=== PATIENT | male | born 1980 | race Caucasian/White ===

== ENCOUNTER 2016-12-24 10:23 | Inpatient (IN) | payer OTHER ==
--- NOTE | 2016-12-24 10:36 | ED PDOC ---
Arrival/HPI - General Time Seen by Provider: 12/24/16 10:24 Historian: EMS EM Caveat: Altered Mental Status - History of Present Illness Narrative History of Present Illness (Text): 12/24/16 10:15 Jorge Alberto Cast is a 36 year old male, whose past medical history includes asthma and drug use, is brought into the emergency department via EMS after being found unresponsive in his house by a family member prior to arrival. Per EMS, family member states he is a heroin user and when knocking on the door patient would not answer and was unresponsive. EMS reports he had pinpoint pupils and shallow breathing so they administered 2mg intranasal and 2mg IV Narcan with no response. The intubated patient with 150 mg of Ketamine and 150 mg of Rocuronium. They treated his respiratory distress with 125mg of Solumedrol , 2gm of Magnesiuam and 0.3 epi IM. PMD: Dr. Wilkes 12/24/16 11:16 Girlfriend arrived in the ED and reported that she last text messaged with him at 4:30 am. She then went to his apartment prior to arrival and he wouldn't answer the door. She suspected he may have intranasally used heroine because said a couple of days ago he was getting but she's unsure if he used it last night. She also states he has very poor asthma so she's not sure if he an asthma attack. Time/Duration: Prior to Arrival Symptom Onset: Sudden Symptom Course: Unchanged Context: Home Past Medical History - Provider Review Nursing Documentation Reviewed: Yes - Tetanus Immunization Tetanus Immunization: Up to Date - Pulmonary Hx Asthma: Yes - Gastrointestinal Hx Gastroesophageal Reflux: Yes - Psychiatric Hx Substance Use: No - Suicidal Assessment Feels Threatened In Home Enviroment: No Family/Social History - Physician Review Nursing Documentation Reviewed: Yes Family/Social History: Unknown Family HX Smoking Status: Never Smoked Hx Alcohol Use: No Hx Substance Use: No Allergies/Home Meds Allergies/Adverse Reactions: Allergies cat dander Allergy (Verified 12/24/16 10:25) RASH Review of Systems - Review of Systems Systems not reviewed;Unavailable: Altered Mental Status Respiratory: Other (shallow breathing ) Physical Exam - Physical Exam Physical Exam Limitations: Altered Mental Status Vital Signs Reviewed: Yes Vital Signs Temp Pulse Resp BP Pulse Ox 12/24/16 11:15 94 H 185/141 H 12/24/16 10:24 96.6 F L 118 H 20 186/127 H 100 Temperature: Hypothermic Blood Pressure: Hypertensive Pulse: Tachycardic Appearance: Positive for: Ill-Appearing Pain Distress: None Mental Status: Positive for: Comatose - Systems Exam Head: Present: Atraumatic, Normocephalic Pupils: Present: PERRL (3mL reactive) Conjunctiva: Present: Normal Mouth: Present: Other (7.5 ET tube in mouth. no bleeding ) Nose (External): No: Atraumatic Respiratory/Chest: Present: Wheezes (bilateral wheezing with inhilation and currently with bag valve mask). No: Respiratory Distress, Accessory Muscle Use Abdomen: Present: Normal Bowel Sounds. No: Tenderness, Distention, Peritoneal Signs Lower Extremity: Present: Normal Inspection. No: Edema Neurological: Present: GCS=15, CN II-XII Intact, Speech Normal Skin: Present: Warm, Dry, Normal Color. No: Rashes Psychiatric: Present: Other (Not responsive to stimuli and currently sedated ) Medical Decision Making ED Course and Treatment: 12/24/16 Impression: 36 year old male with no trauma to head, pupils are 3mL reactive. Patient currently has 7.5 ET tube in mouth with no bleeding. On exam patient has bilateral wheezing with inhalation and currently with bag valve mask. Abdomen is non-tender and there is no lower extremity edema. Not responsive to stimuli and currently sedated Differential Diagnosis included but are not limited to: Overdose vs. COPD vs. Asthma exacerbation Plan: -- EKG -- Chest X-ray -- CT Cervical spine -- CT Head without contrast -- Labs -- Urinalysis -- Reassess and disposition Progress Notes: EKG: Ordered, reviewed, and independently interpreted the EKG. Rate : 103 BPM Rhythm : tachycardia Interpretation : No ST-segment elevations or depressions, no T-wave inversions, normal intervals. 12/24/16 11:12 CBC showed WBC of 21. Patient is hypothermic and tachycardic. Treated with Zosyn and Vanco for Severe Sepsis. Lactic Acid pending. Magnesium is elevated. Blood is being redrawn since the Magnesium IV drip was hanging via that IV line that had that blood drawn from. Bicarb 1 amp ordered to treat acidosis. Propofol drip started because patients slowly waking up and bucking on the vent. Case was discussed with Dr. Lyle, ICU attending who will accept the case. Dr. Castro, the hospitalist, accepted to her service. 12/24/16 11:[address] Sotero Peres who recommends MRI now or repeat CT in later today. 12/24/16 12:00 CT Cervical spine: Creator : Adelfo Munguia MD FINDINGS: VERTEBRAE: No fracture. Normal alignment. No destructive bony lesion. DISCS/SPINAL CANAL/NEURAL FORAMINA: No significant central canal or neural foraminal stenosis. Discs heights are grossly preserved. PARASPINAL SOFT TISSUES: The patient is status post intubation and NG tube insertion therefore cannot assess the prevertebral soft tissue in this study. OTHER FINDINGS: Heterogeneous opacity at the right upper lung may represent pneumonia or aspiration. IMPRESSION: No CT evidence of acute fracture or subluxation at the cervical spine. 12/24/2016 12:05 Chest X-ray: Creator : Adelfo Munguia MD FINDINGS: LUNGS: Heterogeneous opacities are noted in both lungs more prominent at the perihilar region. The left lung appears smaller than the right likely due to partial atelectasis. PLEURA: No significant pleural effusion identified, no pneumothorax apparent. CARDIOVASCULAR: Normal. Mild mediastinal structure shift to the left is noted. OSSEOUS STRUCTURES: No significant abnormalities. VISUALIZED UPPER ABDOMEN: The NG tube is seen at slightly low high position with the side hole likely at the distal esophagus P OTHER FINDINGS: None. IMPRESSION: Heterogeneous opacities in the lungs more prominent at the perihilar region. Suspicious for partial atelectasis of the left lung associated with mediastinal shift to the left.High position of the NG tube with the side hole likely at the distal esophagus. The stomach is distended. 12/24/16 12:41 Case was discussed with Dr. Roque, Neurosurgery, who reviewed the CT Head imagining and does not see an acute bleed. We will continue with the plan to repeat the image or an MRI. Dr. Schwartz is aware of the plan and will follow up. - Critical Care Critical Care Minutes: 60 minutes - Lab Interpretations Lab Results: 12/24/16 10:30 12/24/16 10:30 Lab Results 12/24/16 11:15: pO2 33, VBG pH 6.95 L*, VBG pCO2 133.0 H*, VBG HCO3 29.2 H, VBG Total CO2 33.3 H, VBG O2 Sat (Calc) 59.9, VBG Base Excess -6.3 L, VBG Potassium 5.0, Glucose 82, Lactate 1.4, FiO2 21.0, Sodium 139.0, Chloride 104.0, Venous Blood Potassium 5.0 12/24/16 10:45: Salicylates < 1 L, Acetaminophen < 10.0 L 12/24/16 10:45: Urine Opiates Screen Negative, Urine Methadone Screen Negative, Ur Barbiturates Screen Negative, Ur Phencyclidine Scrn Negative, Ur Amphetamines Screen Negative, U Benzodiazepines Scrn Negative, U Oth Cocaine Metabols Negative, U Cannabinoids Screen Positive H 12/24/16 10:45: Urine Color Yellow, Urine Appearance Clear, Urine pH 6.0, Ur Specific [place] >= 1.030, Urine Protein 30 H, Urine Glucose (UA) 250 H, Urine Ketones Negative, Urine Blood Large H, Urine Nitrate Negative, Urine Bilirubin Negative, Urine Urobilinogen 0.2, Ur Leukocyte Esterase Negative, Urine RBC 10 - 15, Urine WBC 1 - 3, Ur Epithelial Cells None, Amorphous Sediment Few, Urine Bacteria Mod, Hyaline Casts 0 - 2, Fine Granular Casts 0 - 2, Coarse Granular Casts Trace H 12/24/16 10:30: Alcohol, Quantitative < 10 12/24/16 10:30: Sodium 143, Potassium 5.0, Chloride 101, Carbon Dioxide 29, Anion Gap 18, BUN 22 H, Creatinine 1.9 H, Est GFR ( Amer) 49, Est GFR ( Non-Af Amer) 40, Random Glucose 133 H, Calcium 8.6, Phosphorus 9.8 H, Magnesium 7.0 H*, Total Bilirubin 0.4, AST 187 H, ALT 145 H, Alkaline Phosphatase 63, Lactate Dehydrogenase 1222 H, Total Creatine Kinase 426 H, CK-MB (CK-2) 4.3 H, CK-MB (CK-2) % Cancelled, Troponin I 0.12, NT-Pro-B Natriuret Pep 36.4, Total Protein 7.3, Albumin 4.5, Globulin 2.8, Albumin/Globulin Ratio 1.6 12/24/16 10:30: PT 11.7, INR 1.06, APTT 32.7 12/24/16 10:30: WBC 21.2 H, RBC 4.89, Hgb 15.9, Hct 48.0, MCV 98.2, MCH 32.5, MCHC 33.1, RDW 12.8, Plt Count 265, MPV 10.7, Gran % 86.9 H, Lymph % (Auto) 8.1 L, Williams % (Auto) 4.4, Eos % (Auto) 0.4 L, Baso % (Auto) 0.2, Gran # 18.44 H, Lymph # 1.7, Williams # 0.9 H, Eos # 0.1, Baso # 0.04 I have reviewed the lab results: Yes - RAD Interpretation Radiology Orders: 12/24/16 10:29 CHEST PORTABLE [RAD] Stat 12/24/16 10:30 HEAD W/O CONTRAST [CT] Stat 12/24/16 10:40 CERVICAL SPINE W/O CONTRAST [CT] Stat Waiter/Waitress Cabin Class: Radiologist - EKG Interpretation Interpreted by ED Physician: Yes Type: 12 lead EKG - Medication Orders Current Medication Orders: Propofol (Diprivan) 1,000 mg in 100 mls @ 2.762 mls/hr IV .Q24H PRN; Protocol; 5 MCG/KG/MIN PRN Reason: TITRATE PER MD ORDER Last Admin: 12/24/16 12:07 Dose: 5 mcg/kg/min, 2.762 mls/hr eMAR Start Stop Document 12/24/16 12:07 MR (Rec: 12/24/16 12:07 MR [id number]) Intravenous Solution Start Date 12/24/16 Start Time 12:07 Titration Intervention Document 12/24/16 12:07 MR (Rec: 12/24/16 12:07 MR [id number]) Titration Intake Waste Amount 0 Container Volume 100 Titration Dosing Titration Dose 5 IV Rate 2.762 Intake/Decrease Started Discontinued Medications Albuterol/Ipratropium (Duoneb 3 Mg/0.5 Mg (3 Ml) Ud) 3 ml IH Q15M SILVERIO Stop: 12/24/16 11:01 Last Admin: 12/24/16 12:05 Dose: 3 ml Hydralazine HCl (Apresoline) 10 mg IVP STAT STA Stop: 12/24/16 11:04 Last Admin: 12/24/16 11:15 Dose: 10 mg IVP Administration Document 12/24/16 11:15 MR (Rec: 12/24/16 11:16 MR [id number]) Charges for Administration # of IVP Administrations 1 MAR Pulse and Blood Pressure Document 12/24/16 11:15 MR (Rec: 12/24/16 11:16 MR [id number]) Pulse Pulse Rate (60-90) 94 Blood Pressure Blood Pressure (100/60-150/90) 185/141 Vancomycin HCl (Vancomycin 1gm) 1 gm in 250 mls @ 167 mls/hr IVPB STAT STA PRN Reason: Protocol Stop: 12/24/16 12:21 Last Admin: 12/24/16 12:16 Dose: 167 mls/hr eMAR Start Stop Document 12/24/16 12:16 MR (Rec: 12/24/16 12:16 MR [id number]) Intravenous Solution Start Date 12/24/16 Start Time 12:16 End Date 12/24/16 End time 13:46 Total Infusion Time 90 Piperacillin Sod/Tazobactam Sod (Zosyn 4.5 Gm In Ns 100ml) 4.5 gm in 100 mls @ 200 mls/hr IVPB STAT STA PRN Reason: Protocol Stop: 12/24/16 11:21 Last Admin: 12/24/16 11:18 Dose: 200 mls/hr eMAR Start Stop Document 12/24/16 11:18 MR (Rec: 12/24/16 11:18 MR [id number]) Intravenous Solution Start Date 12/24/16 Start Time 11:18 End Date 12/24/16 End time 11:48 Total Infusion Time 30 Sodium Bicarbonate (Sodium Bicarbonate 8.4% (50 Meq) Syringe) 50 meq IVP ONCE ONE Stop: 12/24/16 11:41 Last Admin: 12/24/16 12:03 Dose: 50 meq IVP Administration Document 12/24/16 12:03 MR (Rec: 12/24/16 12:03 MR [id number]) Charges for Administration # of IVP Administrations 1 - Scribe Statement The provider has reviewed the documentation as recorded by the Rocioibmagy Guido Provider Scribe Attestation: All medical record entries made by the Scribe were at my direction and personally dictated by me. I have reviewed the chart and agree that the record accurately reflects my personal performance of the history, physical exam, medical decision making, and the department course for this patient. I have also personally directed, reviewed, and agree with the discharge instructions and disposition. Disposition/Present on Arrival - Present on Arrival Any Indicators Present on Arrival: No History of DVT/PE: No History of Uncontrolled Diabetes: No Urinary Catheter: No History Surgical Site Infection Following: None - Disposition Have Diagnosis and Disposition been Completed?: Yes Diagnosis: Exacerbation of asthma, Overdose of heroin, Sepsis Disposition: HOSPITALIZED Disposition Time: 11:22 Patient Plan: Admission, ICU Patient Problems: Current Active Problems Problem Status Onset Exacerbation of asthma Acute Overdose of heroin Acute Sepsis Acute Condition: CRITICAL
[2016-12-24 10:43] LABS: BASO # 0.04 K/mm3 (0.0-2.0); BASO % 0.2 % (0.0-3.0); EOS # 0.1 (0.0-0.7); EOS % 0.4 % (1.5-5.0); GRAN # 18.44 (1.4-6.5); GRAN % 86.9 % (50.0-68.0); LYMPH # 1.7 (1.2-3.4); LYMPH % 8.1 % (22.0-35.0); MEAN CELL VOLUME 98.2 fl (80.0-105.0); MEAN CORPUSCULAR HEMOGLOBIN 32.5 pg (25.0-35.0); MEAN CORPUSCULAR HGB CONC 33.1 g/dl (31.0-37.0); MEAN PLATELET VOLUME 10.7 fl (7.0-11.0); MONO # 0.9 (0.1-0.6); MONO % 4.4 % (1.0-6.0); RED CELL DISTRIBUTION WIDTH 12.8 % (11.5-14.5); WHITE BLOOD COUNT 21.2 10^3/ul (4.5-11.0)
[2016-12-24] MEDS ORDERED: Vancomycin 1gm in NS 250ml 1 GM/250 ML BAG IVPB STA (10:52)
[2016-12-24] MEDS ORDERED: Piperacill/Tazo 4.5gm in NS 4.5 GM/100 ML BAG IVPB STA (10:52)
[2016-12-24 10:55] LABS: ALB/GLOB RATIO 1.6 (1.1-1.8); BILIRUBIN,TOTAL 0.4 mg/dL (0.2-1.3); CALCIUM 8.6 mg/dL (8.4-10.5); PHOSPHOROUS 9.8 mg/dL (2.5-4.5); TOTAL PROTEIN 7.3 g/dL (5.8-8.3)
[2016-12-24 10:56] LABS: INR 1.06 (0.93-1.08); PARTIAL THROMBOPLASTIN TIME 32.7 Seconds (25.1-36.5)
[2016-12-24 10:56] LABS: URINE BILIRUBIN NEGATIVE (NEGATIVE); URINE BLOOD LARGE (NEGATIVE); URINE GLUCOSE (UA) 250 mg/dL (NEGATIVE); URINE KETONE NEGATIVE (NEGATIVE); URINE LEUKOCYTE ESTERASE NEGATIVE Leu/uL (NEGATIVE); URINE PROTEIN 30 mg/dL (<30 mg/dL); URINE UROBILINOGEN 0.2 E.U./dL (<1 E.U./dL)
[2016-12-24 10:59] LABS: URINE APPEARANCE CLEAR (CLEAR); URINE COLOR YELLOW (YELLOW)
[2016-12-24 11:03] LABS: URINE BACTERIA MOD (NEG)
[2016-12-24] MEDS: Albuterol-Ipratrop 3 mg / 0.5 (3 ml) UD IH SCH ×5 (11:04→20:12)
[2016-12-24 11:05] LABS: URINE AMORPHOUS SEDIMENT FEW
[2016-12-24 11:26] LABS: VENOUS BLOOD GAS BASE EXCESS -6.3 mmol/L (0.0-2.0); VENOUS BLOOD PH 6.95 (7.32-7.43)
[2016-12-24 11:39] LABS: TROPONIN I 0.12 ng/mL
[2016-12-24] MEDS ORDERED: Sodium Bicarbonate (8.4%) 50 Meq Syringe IVP ONE (11:40)
[2016-12-24] MEDS ORDERED: Propofol 10 mg/ml 1,000 MG/100 ML VIAL IV PRN (11:40)
--- NOTE | 2016-12-24 11:41 | CT ---
PROCEDURE: CT HEAD WITHOUT CONTRAST. HISTORY: altered mental status COMPARISON: None available. TECHNIQUE: Axial computed tomography images were obtained through the head/brain without intravenous contrast. Radiation dose: Total exam DLP = 814.48 mGy-cm. This CT exam was performed using one or more of the following dose reduction techniques: Automated exposure control, adjustment of the mA and/or kV according to patient size, and/or use of iterative reconstruction technique. FINDINGS: HEMORRHAGE: This questionable small 4 millimeter focal high attenuation at the left frontal lobe seen on image 53 series 2 BRAIN: No mass effect or edema. No atrophy or chronic microvascular ischemic changes. VENTRICLES: Unremarkable. No hydrocephalus. CALVARIUM: Unremarkable. PARANASAL SINUSES: Unremarkable as visualized. No significant inflammatory changes. MASTOID AIR CELLS: Unremarkable as visualized. No inflammatory changes. OTHER FINDINGS: None. IMPRESSION: Questionable 4 millimeter focus of increased attenuation at the left frontal lobe peripherally. The possibility of small hemorrhage cannot be excluded. Close follow-up reassessment by CT after 06-12 hour is suggested.
[2016-12-24 11:44] VITALS: BMI 29.1
--- NOTE | 2016-12-24 11:48 | CT ---
PROCEDURE: CT Cervical Spine without contrast HISTORY: Possible trauma, unresponsive COMPARISON: None available. TECHNIQUE: Axial computed tomography images were obtained of the cervical spine without the use of intravenous contrast. Coronal and sagittal reformatted images were created and reviewed. Radiation dose: Total exam DLP = 572.89 mGy-cm. This CT exam was performed using one or more of the following dose reduction techniques: Automated exposure control, adjustment of the mA and/or kV according to patient size, and/or use of iterative reconstruction technique. FINDINGS: VERTEBRAE: No fracture. Normal alignment. No destructive bony lesion. DISCS/SPINAL CANAL/NEURAL FORAMINA: No significant central canal or neural foraminal stenosis. Discs heights are grossly preserved. PARASPINAL SOFT TISSUES: The patient is status post intubation and NG tube insertion therefore cannot assess the prevertebral soft tissue in this study. OTHER FINDINGS: Heterogeneous opacity at the right upper lung may represent pneumonia or aspiration. IMPRESSION: No CT evidence of acute fracture or subluxation at the cervical spine.
--- NOTE | 2016-12-24 11:49 | CP.PCM.HP ---
<Gala James - Last Filed: 12/24/16 13:15> History of Present Illness - History of Present Illness History of Present Illness: Please note patient came in intubated and unresponsive. History is from girlfriend of 12 years, Emelia Card, who is at bedside. Contact # [phone] 36 year old male PMHx asthma, sciatica, and drug use BIBA intubated after being found unresponsive by at home. Patient's girlfriend reports that she last spoke to patient at 4:30am [texting and a phone call] and he was lucid and was at baseline oriented x 3. Later on the morning of admission, he was no longer responding to her calls and texts and when she went to his home at 8:30am she noticed he was lying on his right side with froth and white foam around his mouth, blue lips, and she could see his chest wall was retracting. She called 911 immediately and when EMS arrived, patient was found unresponsive with pinpoint pupils and shallow breathing. He was administered 2mg intranasal and 2mg IV Narcan with no response. The intubated patient with 150 mg of Ketamine and 150 mg of Rocuronium. They treated his respiratory distress with 125mg of Solumedrol, 2gm of Magnesiuam and 0.3 epi IM. As per girlfriend, patient has been depressed recently due to them and was recently introduced to snorting heroin by his brother. His girlfriend states that he has been using for the past month but she is unsure of how much. He used to take percocet, other painkillers, and Benadryl recreationally. As per girlfriend, this past week patient had not complained of any headaches, dizziness, chest pain, SOB, cough, abdominal pain, nausea, vomiting, bowel/bladder complaints, pain/ swelling in his legs bilaterally, problems ambulating. Patient has not travelled recently and has had no sick contacts. PMD: [place] [facility] [place]x: asthma and sciatica Intubation in the past: denies PSurgeries: denies PHospitalization: denies PProcedures: denies SocHx: started snorting heroin this past month [girlfriend unsure of how much] used to take Percocet and other painkillers recreationally and Benadryl for the high; EtOH socially; started smoking tobacco this past month; smokes marijuana regularly. 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 Fam Hx: mother smokes crack and brother does heroin Meds: Albuterol, Steroids [girlfriend unsure of dose] ALL: NKDA ROS: unobtainable. Patient intubated on vent. Present on Admission - Present on Admission Any Indicators Present on Admission: No Review of Systems - Review of Systems Systems not reviewed;Unavailable: Intubated Past Patient History - Tetanus Immunizations Tetanus Immunization: Up to Date - Past Social History Smoking Status: Never Smoked - PULMONARY Hx Asthma: Yes - GASTROINTESTINAL Hx Gastroesophageal Reflux: Yes - PSYCHIATRIC Hx Substance Use: No - ANESTHESIA Hx Anesthesia: No Meds Allergies/Adverse Reactions: Allergies Allergy/AdvReac Type Severity Reaction Status Date / Time cat dander Allergy RASH Verified 12/24/16 10:25 Physical Exam - Constitutional Appears: In Acute Distress (intubated on vent) - Head Exam Head Exam: ATRAUMATIC, NORMAL INSPECTION, NORMOCEPHALIC - Eye Exam Eye Exam: Normal appearance, PERRL. absent: Conjunctival injection, Scleral icterus Pupil Exam: Miosis - ENT Exam ENT Exam: Mucous Membranes Dry Additional comments: NG tube in place draining dark brown fluid ~250cc - Neck Exam Neck exam: Negative for: Lymphadenopathy - Respiratory Exam Respiratory Exam: Rhonchi, Wheezes. absent: Accessory Muscle Use, Clear to Auscultation Bilateral Additional comments: intubated on vent (100, 5, 14, 450) - Cardiovascular Exam Cardiovascular Exam: Tachycardia, REGULAR RHYTHM, +S1, +S2 - GI/Abdominal Exam GI & Abdominal Exam: Normal Bowel Sounds, Soft. absent: Distended, Firm, Guarding, Rigid - Extremities Exam Extremities exam: Positive for: normal capillary refill, normal inspection, pedal pulses present. Negative for: pedal edema - Neurological Exam Neurological exam: Altered (Not responsive to stimuli and currently sedated) - Psychiatric Exam Additional comments: Not responsive to stimuli and currently sedated - Skin Skin Exam: Dry, Intact, Normal Color Results - Vital Signs Recent Vital Signs: Last Vital Signs Temp 96.6 F L 12/24/16 10:24 Pulse 94 H 12/24/16 11:15 Resp 20 12/24/16 10:24 BP 185/141 H 12/24/16 11:15 Pulse Ox 100 12/24/16 10:24 - Labs Result Diagrams: 12/24/16 10:30 12/24/16 11:45 Assessment & Plan - Assessment and Plan (Free Text) Assessment: 36 year old male PMHx asthma, sciatica, and drug use BIBA intubated after being found unresponsive by at home. Patient admitted to ICU. Plan: AMS - drug overdose vs status asthmaticus vs unwitnessed withdrawal seizure - Head CT: questionable 4mm focus on increased attenuation at the left frontal lobe peripherally. Possibility of a small hemorrhage cannot be excluded f/u repeat Head CT in 6-12 hours - CT cervical spine: no evidence of acute fracture of subluxation - UTox: + cannabinoids only - Neurology Dr. Peres consulted- f/u reccs - Neurosurgery Dr. Villalta consulted - f/u reccs Respiratory Failure - intubated on vent (100, 5, 14, 450) - VBG on admission pH: 6.95, pCO2: 133, HCO3: 29.2, Total CO2: 33.3 - ABG: pH: 7.18, pCO2: 91, pO2: 57, HCO3: 34, Total CO2: 36.8 repeat ABG pH: 7.18, pCO2: 64, pO2: 78, HCO3: 23.9, Total CO2: 25.9 hypercapnic respiratory acidosis - CXR: heterogeneous opacities in the lungs more prominent at the perihilar region. Suspicion for partial atelectasis of the left lung associated with mediastinal shift to the left. High position of NGT with side hole likely at distal esophagus. Stomach is distended. - Duoneb 3ml inh q4 - Solumedrol 40mg ivp q12 SIRS - meets criteria: hypothermic, tachycardic, elevated WBC - f/u blood culture, sputum culture, and urine culture - f/u procalcitonin - Zosyn and Vancomycin continued - ID Dr. Castillo consulted - f/u reccs Upper GI Bleed - NGT in place on suction - Protonix 40mg ivp q12 - NPO - GI Dr. Hernandez consulted - f/u reccs Transaminitis - AST/ALT on admission: 187/145 --> repeat 197/156 - f/u Acute Hep panel - f/u U/S abdomen Elevated troponin - Troponin on admission: 0.12 repeat troponin q6 - EKG: sinus tachycardia 103bpm - f/u Echo - Cardio Dr. Siddiqui consulted - f/u [facility] Acute Kidney Injury - BUN/Cr on admission: 06/03.9 --> repeat 07/03.8 - NS @ 100cc/hr - consider nephro consult if BUN/Cr continues to increase GI ppx: Protonix 40mg ivp q12 DVT ppx: SCDs Diet: NPO Fluids: NS @ 100cc/hr Precautions: Aspiration, Seizure Case discussed with Dr. Nichelle James PGY2 <Hieu Steward - Last Filed: 12/25/16 07:40> Results - Vital Signs Recent Vital Signs: Last Vital Signs Temp 98.3 F 12/25/16 00:00 Pulse 75 12/25/16 03:00 Resp 18 12/25/16 03:00 BP 113/60 12/25/16 03:00 Pulse Ox 100 12/25/16 03:00 - Labs Result Diagrams: 12/25/16 06:00 12/25/16 06:00 Labs: Laboratory Results - last 24 hr 12/24/16 12/24/16 12/24/16 11:45 12:00 12:15 WBC RBC Hgb Hct MCV MCH MCHC RDW Plt Count MPV Gran % Lymph % (Auto) [place] % (Auto) Eos % (Auto) Baso % (Auto) Gran # Lymph # [place] # Eos # Baso # Neutrophils % (Manual) Band Neutrophils % Lymphocytes % (Manual) Monocytes % (Manual) Platelet Evaluation Large Platelets Giant Platelets PT INR pCO2 91 H* 64 H pO2 57.0 L 78.0 L HCO3 34.0 H 23.9 ABG pH 7.18 L* 7.18 L* ABG Total CO2 36.8 H 25.9 ABG O2 Saturation 91.7 L 96.9 ABG O2 Content 17.6 19.7 ABG Base Excess 2.4 -5.8 L ABG Hemoglobin 14.3 15.1 ABG Carboxyhemoglobin 4.0 H 3.5 H POC ABG HHb (Measured) 7.9 H 3.0 ABG Methemoglobin 0.7 0.7 ABG O2 Capacity 19.2 20.3 ABG Potassium Hgb O2 Saturation 87.4 L 92.8 L Glucose Lactate Mechanical Rate FiO2 100.0 100.0 Tidal Volume PEEP Sodium 144 Potassium 4.9 Chloride 102 Carbon Dioxide 29 Anion Gap 18 BUN 23 H Creatinine 1.8 H Est GFR ( Amer) 52 Est GFR (Non-Af Amer) 43 Random Glucose 85 Calcium 8.8 Phosphorus 9.2 H Magnesium 3.0 H Total Bilirubin 0.5 AST 197 H ALT 156 H Alkaline Phosphatase 64 Troponin I Total Protein 7.6 Albumin 4.6 Globulin 3.0 Albumin/Globulin Ratio 1.5 Procalcitonin Arterial Blood Potassium Influenza Typ A,B (EIA) 12/24/16 12/24/16 12/24/16 12:54 14:00 14:40 WBC RBC Hgb Hct MCV MCH MCHC RDW Plt Count MPV Gran % Lymph % (Auto) [place] % (Auto) Eos % (Auto) Baso % (Auto) Gran # Lymph # [place] # Eos # Baso # Neutrophils % (Manual) Band Neutrophils % Lymphocytes % (Manual) Monocytes % (Manual) Platelet Evaluation Large Platelets Giant Platelets PT INR pCO2 52 H pO2 176.0 H HCO3 23.3 ABG pH 7.26 L ABG Total CO2 24.9 ABG O2 Saturation 99.7 H ABG O2 Content ABG Base Excess -4.3 L ABG Hemoglobin ABG Carboxyhemoglobin POC ABG HHb (Measured) ABG Methemoglobin ABG O2 Capacity ABG Potassium 5.5 H Hgb O2 Saturation Glucose 114 H Lactate 1.5 Mechanical Rate 14 FiO2 100.0 Tidal Volume 500 PEEP 5 Sodium 137.0 Potassium Chloride 106.0 Carbon Dioxide Anion Gap BUN Creatinine Est GFR ( Amer) Est GFR (Non-Af Amer) Random Glucose Calcium Phosphorus Magnesium Total Bilirubin AST ALT Alkaline Phosphatase Troponin I Total Protein Albumin Globulin Albumin/Globulin Ratio Procalcitonin 0.78 H Arterial Blood Potassium 5.5 H Influenza Typ A,B (EIA) Negative for flu a/b 12/24/16 12/24/16 12/25/16 18:30 18:30 01:00 WBC 17.2 H RBC 4.83 Hgb 15.4 Hct 45.7 MCV 94.6 D MCH 31.9 MCHC 33.7 RDW 12.7 Plt Count 210 MPV 11.4 H Gran % 93.2 H Lymph % (Auto) 3.9 L [place] % (Auto) 2.8 Eos % (Auto) 0.0 L Baso % (Auto) 0.1 Gran # 16.06 H Lymph # 0.7 L [place] # 0.5 Eos # 0.0 Baso # 0.01 Neutrophils % (Manual) 86 H Band Neutrophils % 5 H Lymphocytes % (Manual) 3 L Monocytes % (Manual) 6 Platelet Evaluation Normal Large Platelets Present Giant Platelets Present PT INR pCO2 pO2 HCO3 ABG pH ABG Total CO2 ABG O2 Saturation ABG O2 Content ABG Base Excess ABG Hemoglobin ABG Carboxyhemoglobin POC ABG HHb (Measured) ABG Methemoglobin ABG O2 Capacity ABG Potassium Hgb O2 Saturation Glucose Lactate Mechanical Rate FiO2 Tidal Volume PEEP Sodium Potassium Chloride Carbon Dioxide Anion Gap BUN Creatinine Est GFR ( Amer) Est GFR (Non-Af Amer) Random Glucose Calcium Phosphorus Magnesium Total Bilirubin AST ALT Alkaline Phosphatase Troponin I 0.37 H* D 0.39 H* Total Protein Albumin Globulin Albumin/Globulin Ratio Procalcitonin Arterial Blood Potassium Influenza Typ A,B (EIA) 12/25/16 12/25/16 12/25/16 06:00 06:00 06:00 WBC 13.5 H D RBC 4.56 Hgb 14.4 Hct 42.9 MCV 94.1 MCH 31.6 MCHC 33.6 RDW 12.9 Plt Count 199 MPV 11.0 Gran % 93.8 H Lymph % (Auto) 3.6 L [place] % (Auto) 2.6 Eos % (Auto) 0.0 L Baso % (Auto) 0.0 Gran # 12.70 H Lymph # 0.5 L [place] # 0.4 Eos # 0.0 Baso # 0.00 Neutrophils % (Manual) Band Neutrophils % Lymphocytes % (Manual) Monocytes % (Manual) Platelet Evaluation Large Platelets Giant Platelets PT 13.2 H INR 1.20 H pCO2 pO2 HCO3 ABG pH ABG Total CO2 ABG O2 Saturation ABG O2 Content ABG Base Excess ABG Hemoglobin ABG Carboxyhemoglobin POC ABG HHb (Measured) ABG Methemoglobin ABG O2 Capacity ABG Potassium Hgb O2 Saturation Glucose Lactate Mechanical Rate FiO2 Tidal Volume PEEP Sodium 142 Potassium 4.4 Chloride 105 Carbon Dioxide 29 Anion Gap 12 BUN 29 H Creatinine 1.1 Est GFR ( Amer) > 60 Est GFR (Non-Af Amer) > 60 Random Glucose 118 H Calcium 9.0 Phosphorus 3.3 Magnesium 2.4 H Total Bilirubin 0.5 AST 93 H D ALT 104 H Alkaline Phosphatase 42 Troponin I Total Protein 6.5 Albumin 4.0 Globulin 2.5 Albumin/Globulin Ratio 1.6 Procalcitonin Arterial Blood Potassium Influenza Typ A,B (EIA) 12/25/16 06:10 WBC RBC Hgb Hct MCV MCH MCHC RDW Plt Count MPV Gran % Lymph % (Auto) [place] % (Auto) Eos % (Auto) Baso % (Auto) Gran # Lymph # [place] # Eos # Baso # Neutrophils % (Manual) Band Neutrophils % Lymphocytes % (Manual) Monocytes % (Manual) Platelet Evaluation Large Platelets Giant Platelets PT INR pCO2 38 pO2 114.0 H HCO3 22.5 ABG pH 7.38 ABG Total CO2 23.7 ABG O2 Saturation 98.8 H ABG O2 Content ABG Base Excess -2.3 L ABG Hemoglobin ABG Carboxyhemoglobin POC ABG HHb (Measured) ABG Methemoglobin ABG O2 Capacity ABG Potassium 3.7 Hgb O2 Saturation Glucose 113 H Lactate 3.2 H Mechanical Rate FiO2 100.0 Tidal Volume PEEP Sodium 141.0 Potassium Chloride 111.0 H Carbon Dioxide Anion Gap BUN Creatinine Est GFR ( Amer) Est GFR (Non-Af Amer) Random Glucose Calcium Phosphorus Magnesium Total Bilirubin AST ALT Alkaline Phosphatase Troponin I Total Protein Albumin Globulin Albumin/Globulin Ratio Procalcitonin Arterial Blood Potassium 3.7 Influenza Typ A,B (EIA) Attending/Attestation - Attestation I have personally seen and examined this patient.: Yes I have fully participated in the care of the patient.: Yes I have reviewed all pertinent clinical information: Yes Notes (Text): 12/25/16 07:31 36 year old male with past medical history of asthma, sciatica and substance abuse who was found unresponsive by family at home. He was intubated in the field. Urine drug screen positive for cannabinoids. CT head showed questionable 4 mm focus on increased attenuation at the left frontal lobe peripherally; possibility of a small hemorrhage cannot be excluded. This was followed up with a MRI brain / MRA head which are negative. CT cervical spine was negative. Neurology evaluation was requested. He is on iv steroids for asthma exacerbation. Continue with vent management as per hospice music therapy. He also has SIRS (leukocytosis/tachycardia). Continue with iv antibiotics while awaiting cultures. ID evaluation was requested. NGT noted with coffee ground output. LFTs are mildly elevated. Continue with iv protonix and NPO. GI evaluation is requested. Hepatitis panel and abdominal ultrasound was ordered. Mildly elevated troponins. Will trend troponins and check echocardiogram. Cardiology evaluation was requested. Continue with iv fluids for MIKEY. Will monitor kidney function closely. Brothers were at bedside and questions were answered. Hieu Steward MD Hospitalist.
--- NOTE | 2016-12-24 12:00 | CARD ---
APPROVED REPORT EKG Measurement Heart [id number] <Conclusion> Sinus tachycardia Possible Left atrial enlargement Borderline ECG
[2016-12-24 12:06] LABS: ARTERIAL BLOOD GAS O2 CAPACITY 19.2 mL/dl (16-24); ARTERIAL BLOOD GAS O2 CONTENT 17.6 ML/dl (15-23); ARTERIAL BLOOD HGB O2 SAT 87.4 % (95.0-98.0); HHB 7.9 % (0-5); METHEMOGLOBIN 0.7 % (0.0-3.0)
[2016-12-24] MEDS: Propofol 10 mg/ml 1,000 MG/100 ML VIAL IV PRN ×2 (12:07→23:47)
[2016-12-24 12:08] LABS: ALB/GLOB RATIO 1.5 (1.1-1.8); BILIRUBIN,TOTAL 0.5 mg/dL (0.2-1.3); CALCIUM 8.8 mg/dL (8.4-10.5); PHOSPHOROUS 9.2 mg/dL (2.5-4.5); POTASSIUM 4.9 mmol/L (3.6-5.0); TOTAL PROTEIN 7.6 g/dL (5.8-8.3)
[2016-12-24 12:10] LABS: ARTERIAL BLOOD GAS PH 7.18 (7.35-7.45)
--- NOTE | 2016-12-24 12:13 | RAD ---
HISTORY: overdose COMPARISON: No prior. FINDINGS: LUNGS: Heterogeneous opacities are noted in both lungs more prominent at the perihilar region. The left lung appears smaller than the right likely due to partial atelectasis. PLEURA: No significant pleural effusion identified, no pneumothorax apparent. CARDIOVASCULAR: Normal. Mild mediastinal structure shift to the left is noted. OSSEOUS STRUCTURES: No significant abnormalities. VISUALIZED UPPER ABDOMEN: The NG tube is seen at slightly low high position with the side hole likely at the distal esophagus P OTHER FINDINGS: None. IMPRESSION: Heterogeneous opacities in the lungs more prominent at the perihilar region. Suspicious for partial atelectasis of the left lung associated with mediastinal shift to the left. High position of the NG tube with the side hole likely at the distal esophagus. The stomach is distended.
[2016-12-24 12:19] LABS: ARTERIAL BLOOD GAS HCO3 23.9 mmol/L (21-28); ARTERIAL BLOOD GAS O2 CAPACITY 20.3 mL/dl (16-24); ARTERIAL BLOOD GAS O2 CONTENT 19.7 ML/dl (15-23); ARTERIAL BLOOD HGB O2 SAT 92.8 % (95.0-98.0); CARBOXYHEMOGLOBIN 3.5 % (0.5-1.5); METHEMOGLOBIN 0.7 % (0.0-3.0)
[2016-12-24 12:21] LABS: ARTERIAL BLOOD GAS PH 7.18 (7.35-7.45)
[2016-12-24] MEDS ORDERED: MethylPREDNISolone 40 mg Vial IV SCH (13:15)
[2016-12-24] MEDS: Sodium Chloride 0.9% 1,000 ML IV SCH (13:36)
--- NOTE | 2016-12-24 13:40 | CP.PCM.CON ---
History of Present Illness - History of Present Illness History of Present Illness: Patient is a 36 year old male with a past medical history of asthma who presented to the ED for evaluation and treatment of altered mental status. patient Review of Systems - Review of Systems Review of Systems: 12 point review of systems cannot be determined at this time due to altered mental status Past Patient History - Tetanus Immunizations Tetanus Immunization: Up to Date - Past Social History Smoking Status: Never Smoked - PULMONARY Hx Asthma: Yes - GASTROINTESTINAL Hx Gastroesophageal Reflux: Yes - PSYCHIATRIC Hx Substance Use: No - ANESTHESIA Hx Anesthesia: No Meds Allergies/Adverse Reactions: Allergies Allergy/AdvReac Type Severity Reaction Status Date / Time cat dander Allergy RASH Verified 12/24/16 10:25 - Medications Medications: Current Medications Albuterol/Ipratropium (Duoneb 3 Mg/0.5 Mg (3 Ml) Ud) 3 ml [facility]H Q4H [facility] Stop: 12/24/16 21:01 Last Admin: 12/24/16 13:32 Dose: 3 ml Propofol (Diprivan) 1,000 mg in 100 mls @ 2.762 mls/hr IV .Q24H PRN; Protocol; 5 MCG/KG/MIN PRN Reason: TITRATE PER MD ORDER Last Admin: 12/24/16 12:07 Dose: 5 mcg/kg/min, 2.762 mls/hr Vancomycin HCl (Vancomycin 1gm) 1 gm in 250 mls @ 167 mls/hr IVPB DAILY SILVERIO PRN Reason: Protocol Piperacillin Sod/Tazobactam Sod (Zosyn 2.25 Gm In 0.9% 100 Ml) 2.25 gm in 100 mls @ 100 mls/hr IVPB Q6 SILVERIO PRN Reason: Protocol Stop: 12/25/16 00:59 Sodium Chloride (Sodium Chloride 0.9%) 1,000 mls @ 100 mls/hr IV .Q10H SILVERIO Methylprednisolone (Solu-Medrol) 40 mg IV Q12H SILVERIO Pantoprazole Sodium (Protonix Inj) 40 mg IVP Q12 SILVERIO Results - Vital Signs Recent Vital Signs: Last Vital Signs Temp 96.6 F L 12/24/16 10:24 Pulse 111 H 12/24/16 12:48 Resp 17 12/24/16 12:48 BP 112/60 12/24/16 12:48 Pulse Ox 98 12/24/16 12:48 - Labs Result Diagrams: 12/24/16 10:30 12/24/16 11:45 Labs: Laboratory Results - last 24 hr 12/24/16 12/24/16 12/24/16 11:45 12:00 12:15 pCO2 91 H* 64 H pO2 57.0 L 78.0 L HCO3 34.0 H 23.9 ABG pH 7.18 L* 7.18 L* ABG Total CO2 36.8 H 25.9 ABG O2 Saturation 91.7 L 96.9 ABG O2 Content 17.6 19.7 ABG Base Excess 2.4 -5.8 L ABG Hemoglobin 14.3 15.1 ABG Carboxyhemoglobin 4.0 H 3.5 H POC ABG HHb (Measured) 7.9 H 3.0 ABG Methemoglobin 0.7 0.7 ABG O2 Capacity 19.2 20.3 Hgb O2 Saturation 87.4 L 92.8 L FiO2 100.0 100.0 Sodium 144 Potassium 4.9 Chloride 102 Carbon Dioxide 29 Anion Gap 18 BUN 23 H Creatinine 1.8 H Est GFR ( Amer) 52 Est GFR (Non-Af Amer) 43 Random Glucose 85 Calcium 8.8 Phosphorus 9.2 H Magnesium 3.0 H Total Bilirubin 0.5 AST 197 H ALT 156 H Alkaline Phosphatase 64 Total Protein 7.6 Albumin 4.6 Globulin 3.0 Albumin/Globulin Ratio 1.5 Influenza Typ A,B (EIA) 12/24/16 12:54 pCO2 pO2 HCO3 ABG pH ABG Total CO2 ABG O2 Saturation ABG O2 Content ABG Base Excess ABG Hemoglobin ABG Carboxyhemoglobin POC ABG HHb (Measured) ABG Methemoglobin ABG O2 Capacity Hgb O2 Saturation FiO2 Sodium Potassium Chloride Carbon Dioxide Anion Gap BUN Creatinine Est GFR ( Amer) Est GFR (Non-Af Amer) Random Glucose Calcium Phosphorus Magnesium Total Bilirubin AST ALT Alkaline Phosphatase Total Protein Albumin Globulin Albumin/Globulin Ratio Influenza Typ A,B (EIA) Negative for flu a/b
[2016-12-24] MEDS: MethylPREDNISolone 40 mg Vial IV SCH ×2 (14:20→20:16)
[2016-12-24 14:47] LABS: ABG MECHANICAL RATE 14; ARTERIAL BLOOD GAS HCO3 23.3 mmol/L (21-28); ARTERIAL BLOOD GAS PH 7.26 (7.35-7.45); ATERIAL BLOOD GAS PEEP 5
--- NOTE | 2016-12-24 15:55 | CON ---
DATE: 12/24/2016 SLEEP TECHNOLOGIST CONSULT REQUESTING PHYSICIAN: Dr. Castro. CHIEF COMPLAINT: The patient presented with altered mental status, respiratory failure, possible drug overdose and ventilator dependent. HISTORY OF PRESENT ILLNESS: The patient is a 36-year-old male with a history of asthma and drug use that was found at home by his girlfriend unresponsive. The patient last noon use of drugs possible heroin is unknown. The patient had respiratory distress in the field and was intubated at that time, Narcan was given with no response. The patient at this time has been admitted to the intensive care unit, hemodynamically stable on no pressors. He is on propofol for sedation, ventilator settings are 100% FiO2 with rate of 18 and a tidal volume of 500. PAST MEDICAL HISTORY: As above. ALLERGIES: HE HAS ALLERGIES TO CAT DANDER. MEDICATIONS: Can be evaluated as per the nurses intake form. SOCIAL HISTORY: The patient is a smoker, no ETOH abuse, does have a history of substance abuse. FAMILY HISTORY: Noncontributory. REVIEW OF SYSTEMS: Unable to assess because the patient is unresponsive and sedated on the ventilator. PHYSICAL EXAMINATION: VITAL SIGNS: Note that his temperature is 96.6, his pulse is 107, respirations are 18 and his BP is 101/58. SKIN: Warm and dry. HEAD: Atraumatic, normocephalic. Eyes: Reactive to light. EARS, NOSE, AND THROAT: Seemed to be within normal limits. NECK: Supple. No JVD. No thyroid enlargement. No lymph nodes. HEART: Has a regular rate and rhythm. Normal S1, S2 but mildly tachycardic. LUNGS: Reveal mild rhonchi bilaterally. ABDOMEN: Soft. Decreased bowel sounds. GENITALIA: Deferred. RECTAL: Deferred. MUSCULOSKELETAL: No joint deformities. EXTREMITIES: Reveal no significant edema. NEUROLOGICAL: The patient is unresponsive on the ventilator. LABORATORY DATA: The patient has white count of 21.2, hemoglobin is 15.9, hematocrit 48.0 and platelets of 265,000. Sodium is 143, potassium 5.0, chloride 102, CO2 of 29 with a BUN of 22, creatinine of 1.9 and a glucose of 133. The patient's drug screen showed cannabinoids which was positive. His latest arterial blood gas reveals a pH of 7.18, pCO2 of 64, pO2 of 78. Repeat arterial blood gas is pending. DIAGNOSTIC DATA: The patient's cervical spine CT showed no CT evidence of acute fracture or subluxation of the cervical spine. The CT of the head reveals questionable 4 mm focus increased attenuation at the left frontal lobe peripherally. The possibility of small hemorrhage cannot be excluded, it is recommended that the CT be repeated within 6 to 12 hours. Chest r-ray reveals heterogeneous opacities in the lungs more prominent in the perihilar regions suspicious for partial atelectasis of the left lung associated with mediastinal shift to the left. IMPRESSION: This patient has presented with altered mental status, unresponsive with respiratory failure requiring ventilator support. The patient has a increased white count with acidosis, must rule-out sepsis. Chest x-ray reveals that there is most likely aspiration pneumonia with lefts-sided atelectasis. The patient has possibility of drug overdose or drug use with history of using heroin. He has exacerbation of his asthma/chronic obstructive pulmonary disease as stated respiratory failure requiring ventilator support. The patient has GI bleed with coffee-ground via the NG tube and hypercapnia as well as respiratory acidosis and renal insufficiency. There is a possibility of a small cerebral hemorrhage as well. PLAN: As far as our plan, we will get consults with neuro as well as neurosurgery, GI, cardiology and ID. The patient is on a ventilator with a FiO2 of 100%, we will titrate the FiO2 down as tolerated. He is on propofol for sedation and antibiotics vancomycin and Zosyn. The patient is getting DuoNeb as a bronchodilator, he is on Protonix and normal saline as far as IV fluids. We started Solu-Medrol 40 mg q.6 hour and we will follow his chest x-ray and arterial blood gas closely. We will continue to treat aggressively along with the other consultants and the primary care doctor. Finesse Lyle MD
--- NOTE | 2016-12-24 15:55 | CP.PCM.CON ---
<Alexsandra Marques - Last Filed: 12/24/16 18:14> History of Present Illness - History of Present Illness History of Present Illness: General surgery consult for Dr. Fatimah Marques, PGY-1 Pt s & E at bedside. History as per EMR due to intubation/sedation, no family at bedside. ROS unobtainable. 36M w/PMH sig for drug abuse consulted for central line placement due to cardiogenic shock requiring medication support. Pt found on AM of admission unresponsive at home by gf at 0830, lying on R side w/froth & foam from mouth, blue lips, with chest wall retractions. EMS called, given Narcan in the field, intubated, given Solu-medrol, Mag and epi. Pt admitted to ICU for acute hypercapneic respiratory failure and cardiogenic shock. PMH: asthma, sciatica PSH: Denies All: cat dander SH: Tobacco use (recent), ETOH use sociallyl, MJ use, heroin use, hx Percocet and other painkiller abuse, hx Benadryl abuse PMD: Dr[place] Review of Systems - Review of Systems Systems not reviewed;Unavailable: Intubated Past Patient History - Tetanus Immunizations Tetanus Immunization: Up to Date - Past Social History Smoking Status: Never Smoked - CARDIAC Hx Cardiac Disorders: No - PULMONARY Hx Asthma: Yes - NEUROLOGICAL Hx Neurological Disorder: No - HEENT Hx HEENT Problems: No - RENAL Hx Chronic Kidney Disease: No - ENDOCRINE/METABOLIC Hx Endocrine Disorders: No - HEMATOLOGICAL/ONCOLOGICAL Hx Blood Disorders: No - INTEGUMENTARY Hx Dermatological Problems: No - MUSCULOSKELETAL/RHEUMATOLOGICAL Hx Musculoskeletal Disorders: No Hx Falls: No - GASTROINTESTINAL Hx Gastroesophageal Reflux: Yes - GENITOURINARY/GYNECOLOGICAL Hx Genitourinary Disorders: No - PSYCHIATRIC Hx Substance Use: No - SURGICAL HISTORY Hx Surgeries: No - ANESTHESIA Hx Anesthesia: No Meds Allergies/Adverse Reactions: Allergies Allergy/AdvReac Type Severity Reaction Status Date / Time cat dander Allergy RASH Verified 12/24/16 10:25 - Medications Medications: Current Medications Albuterol/Ipratropium (Duoneb 3 Mg/0.5 Mg (3 Ml) Ud) 3 ml IH Q4H [facility] Stop: 12/24/16 21:01 Last Admin: 12/24/16 13:32 Dose: 3 ml Propofol (Diprivan) 1,000 mg in 100 mls @ 2.762 mls/hr IV .Q24H PRN; Protocol; 5 MCG/KG/MIN PRN Reason: TITRATE PER MD ORDER Last Titration: 12/24/16 14:15 Dose: 10 mcg/kg/min, 5.525 mls/hr Vancomycin HCl (Vancomycin 1gm) 1 gm in 250 mls @ 167 mls/hr IVPB DAILY [facility] PRN Reason: Protocol Piperacillin Sod/Tazobactam Sod (Zosyn 2.25 Gm In 0.9% 100 Ml) 2.25 gm in 100 mls @ 100 mls/hr IVPB Q6 [facility] PRN Reason: Protocol Stop: 12/25/16 00:59 Sodium Chloride (Sodium Chloride 0.9%) 1,000 mls @ 100 mls/hr IV .Q10H [facility] Last Admin: 12/24/16 13:36 Dose: 100 mls/hr Methylprednisolone (Solu-Medrol) 40 mg IV Q6H [facility] Last Admin: 12/24/16 14:20 Dose: Not Given Pantoprazole Sodium (Protonix Inj) 40 mg IVP Q12 [facility] Last Admin: 12/24/16 13:36 Dose: 40 mg Physical Exam - Constitutional Appears: Non-toxic, No Acute Distress Additional comments: intubated, sedated but arousable and capable of following simple commands - Head Exam Head Exam: ATRAUMATIC, NORMAL INSPECTION, NORMOCEPHALIC - Eye Exam Eye Exam: Normal appearance Pupil Exam: Miosis - ENT Exam ENT Exam: Mucous Membranes Moist, Normal Exam - Neck Exam Neck exam: Positive for: Normal Inspection - Respiratory Exam Respiratory Exam: Rhonchi, NORMAL BREATHING PATTERN. absent: Clear to Auscultation Bilateral, Rales, Wheezes, Respiratory Distress Additional comments: on mechanical vent - Cardiovascular Exam Cardiovascular Exam: Tachycardia, +S1, +S2 - GI/Abdominal Exam GI & Abdominal Exam: Normal Bowel Sounds, Soft. absent: Distended, Firm, Guarding - Extremities Exam Extremities exam: Positive for: normal inspection. Negative for: pedal edema - Neurological Exam Additional comments: intubated, on sedation, arousable and capable of following simple commands - Psychiatric Exam Additional comments: unable to assess, intubated on sedation - Skin Skin Exam: Dry, Intact, Normal Color, Warm Results - Vital Signs Recent Vital Signs: Last Vital Signs Temp 98 F 12/24/16 13:33 Pulse 103 H 12/24/16 13:33 Resp 20 12/24/16 13:33 BP 112/60 12/24/16 12:48 Pulse Ox 100 12/24/16 13:31 - Labs Result Diagrams: 12/24/16 10:30 12/24/16 11:45 Labs: Laboratory Results - last 24 hr 12/24/16 12/24/16 12/24/16 11:45 12:00 12:15 pCO2 91 H* 64 H pO2 57.0 L 78.0 L HCO3 34.0 H 23.9 ABG pH 7.18 L* 7.18 L* ABG Total CO2 36.8 H 25.9 ABG O2 Saturation 91.7 L 96.9 ABG O2 Content 17.6 19.7 ABG Base Excess 2.4 -5.8 L ABG Hemoglobin 14.3 15.1 ABG Carboxyhemoglobin 4.0 H 3.5 H POC ABG HHb (Measured) 7.9 H 3.0 ABG Methemoglobin 0.7 0.7 ABG O2 Capacity 19.2 20.3 ABG Potassium Hgb O2 Saturation 87.4 L 92.8 L Glucose Lactate Mechanical Rate FiO2 100.0 100.0 Tidal Volume PEEP Sodium 144 Potassium 4.9 Chloride 102 Carbon Dioxide 29 Anion Gap 18 BUN 23 H Creatinine 1.8 H Est GFR ( Amer) 52 Est GFR (Non-Af Amer) 43 Random Glucose 85 Calcium 8.8 Phosphorus 9.2 H Magnesium 3.0 H Total Bilirubin 0.5 AST 197 H ALT 156 H Alkaline Phosphatase 64 Total Protein 7.6 Albumin 4.6 Globulin 3.0 Albumin/Globulin Ratio 1.5 Arterial Blood Potassium Influenza Typ A,B (EIA) 12/24/16 12/24/16 12:54 14:40 pCO2 52 H pO2 176.0 H HCO3 23.3 ABG pH 7.26 L ABG Total CO2 24.9 ABG O2 Saturation 99.7 H ABG O2 Content ABG Base Excess -4.3 L ABG Hemoglobin ABG Carboxyhemoglobin POC ABG HHb (Measured) ABG Methemoglobin ABG O2 Capacity ABG Potassium 5.5 H Hgb O2 Saturation Glucose 114 H Lactate 1.5 Mechanical Rate 14 FiO2 100.0 Tidal Volume 500 PEEP 5 Sodium 137.0 Potassium Chloride 106.0 Carbon Dioxide Anion Gap BUN Creatinine Est GFR ( Amer) Est GFR (Non-Af Amer) Random Glucose Calcium Phosphorus Magnesium Total Bilirubin AST ALT Alkaline Phosphatase Total Protein Albumin Globulin Albumin/Globulin Ratio Arterial Blood Potassium 5.5 H Influenza Typ A,B (EIA) Negative for flu a/b Assessment & Plan - Assessment and Plan (Free Text) Assessment: 36M w/cardiogenic shock requiring central venous access Plan: Central line placed in RIJ under ultrasound guidance Consent in chart CXR reviewed- no pneumothorax Thank you for this consult Please re-consult as needed Case DW attending Shelli, PGY-5 - Date & Time Date: 12/24/16 Time: 15:54 Procedures - Central Line Placement Jugular Internal Right CVP Consent: written consent CVP Time Out Performed: Yes Pt. Placed on Monitor Pule Ox: Yes MD Prep: gloves Central Line Prep: Chlorhexidine Local Anesthesia Used: Lidocaine 1% Amount of Anesthesia Used (mls): 2 Ultrasound Used for Placement: Yes Central Line Lumen Inserted: triple Post Procedure: All Ports Aspirated, Flushed, Capped Post Procedure X-Ray: No Pneumothorax Seen Patient Tolerated Procedure: No Complications Complications: None <Ketan Heath - Last Filed: 12/24/16 21:35> Meds - Medications Medications: Current Medications Propofol (Diprivan) 1,000 mg in 100 mls @ 2.762 mls/hr IV .Q24H PRN; Protocol; 5 MCG/KG/MIN PRN Reason: TITRATE PER MD ORDER Last Titration: 12/24/16 14:15 Dose: 10 mcg/kg/min, 5.525 mls/hr Vancomycin HCl (Vancomycin 1gm) 1 gm in 250 mls @ 167 mls/hr IVPB DAILY [facility] PRN Reason: Protocol Piperacillin Sod/Tazobactam Sod (Zosyn 2.25 Gm In 0.9% 100 Ml) 2.25 gm in 100 mls @ 100 mls/hr IVPB Q6 [facility] PRN Reason: Protocol Stop: 12/25/16 00:59 Last Admin: 12/24/16 18:24 Dose: 100 mls/hr Sodium Chloride (Sodium Chloride 0.9%) 1,000 mls @ 100 mls/hr IV .Q10H [facility] Last Admin: 12/24/16 13:36 Dose: 100 mls/hr Lorazepam (Ativan) 2 mg IVP ONCE PRN; Protocol PRN Reason: Agitation Last Admin: 12/24/16 16:45 Dose: 2 mg Methylprednisolone (Solu-Medrol) 40 mg IV Q6H [facility] Last Admin: 12/24/16 20:16 Dose: 40 mg Pantoprazole Sodium (Protonix Inj) 40 mg IVP Q12 [facility] Last Admin: 12/24/16 13:36 Dose: 40 mg Results - Vital Signs Recent Vital Signs: Last Vital Signs Temp 98.9 F 12/24/16 20:00 Pulse 90 12/24/16 18:00 Resp 18 12/24/16 15:30 BP 99/60 L 12/24/16 16:26 Pulse Ox 97 12/24/16 16:26 - Labs Result Diagrams: 12/24/16 18:30 12/24/16 11:45 Labs: Laboratory Results - last 24 hr 12/24/16 12/24/16 12/24/16 11:45 12:00 12:15 WBC RBC Hgb Hct MCV MCH MCHC RDW Plt Count MPV Gran % Lymph % (Auto) [place] % (Auto) Eos % (Auto) Baso % (Auto) Gran # Lymph # [place] # Eos # Baso # Neutrophils % (Manual) Band Neutrophils % Lymphocytes % (Manual) Monocytes % (Manual) Platelet Evaluation Large Platelets Giant Platelets pCO2 91 H* 64 H pO2 57.0 L 78.0 L HCO3 34.0 H 23.9 ABG pH 7.18 L* 7.18 L* ABG Total CO2 36.8 H 25.9 ABG O2 Saturation 91.7 L 96.9 ABG O2 Content 17.6 19.7 ABG Base Excess 2.4 -5.8 L ABG Hemoglobin 14.3 15.1 ABG Carboxyhemoglobin 4.0 H 3.5 H POC ABG HHb (Measured) 7.9 H 3.0 ABG Methemoglobin 0.7 0.7 ABG O2 Capacity 19.2 20.3 ABG Potassium Hgb O2 Saturation 87.4 L 92.8 L Glucose Lactate Mechanical Rate FiO2 100.0 100.0 Tidal Volume PEEP Sodium 144 Potassium 4.9 Chloride 102 Carbon Dioxide 29 Anion Gap 18 BUN 23 H Creatinine 1.8 H Est GFR ( Amer) 52 Est GFR (Non-Af Amer) 43 Random Glucose 85 Calcium 8.8 Phosphorus 9.2 H Magnesium 3.0 H Total Bilirubin 0.5 AST 197 H ALT 156 H Alkaline Phosphatase 64 Troponin I Total Protein 7.6 Albumin 4.6 Globulin 3.0 Albumin/Globulin Ratio 1.5 Procalcitonin Arterial Blood Potassium Influenza Typ A,B (EIA) 12/24/16 12/24/16 12/24/16 12:54 14:00 14:40 WBC RBC Hgb Hct MCV MCH MCHC RDW Plt Count MPV Gran % Lymph % (Auto) [place] % (Auto) Eos % (Auto) Baso % (Auto) Gran # Lymph # [place] # Eos # Baso # Neutrophils % (Manual) Band Neutrophils % Lymphocytes % (Manual) Monocytes % (Manual) Platelet Evaluation Large Platelets Giant Platelets pCO2 52 H pO2 176.0 H HCO3 23.3 ABG pH 7.26 L ABG Total CO2 24.9 ABG O2 Saturation 99.7 H ABG O2 Content ABG Base Excess -4.3 L ABG Hemoglobin ABG Carboxyhemoglobin POC ABG HHb (Measured) ABG Methemoglobin ABG O2 Capacity ABG Potassium 5.5 H Hgb O2 Saturation Glucose 114 H Lactate 1.5 Mechanical Rate 14 FiO2 100.0 Tidal Volume 500 PEEP 5 Sodium 137.0 Potassium Chloride 106.0 Carbon Dioxide Anion Gap BUN Creatinine Est GFR ( Amer) Est GFR (Non-Af Amer) Random Glucose Calcium Phosphorus Magnesium Total Bilirubin AST ALT Alkaline Phosphatase Troponin I Total Protein Albumin Globulin Albumin/Globulin Ratio Procalcitonin 0.78 H Arterial Blood Potassium 5.5 H Influenza Typ A,B (EIA) Negative for flu a/b 12/24/16 12/24/16 18:30 18:30 WBC 17.2 H RBC 4.83 Hgb 15.4 Hct 45.7 MCV 94.6 D MCH 31.9 MCHC 33.7 RDW 12.7 Plt Count 210 MPV 11.4 H Gran % 93.2 H Lymph % (Auto) 3.9 L [place] % (Auto) 2.8 Eos % (Auto) 0.0 L Baso % (Auto) 0.1 Gran # 16.06 H Lymph # 0.7 L [place] # 0.5 Eos # 0.0 Baso # 0.01 Neutrophils % (Manual) 86 H Band Neutrophils % 5 H Lymphocytes % (Manual) 3 L Monocytes % (Manual) 6 Platelet Evaluation Normal Large Platelets Present Giant Platelets Present pCO2 pO2 HCO3 ABG pH ABG Total CO2 ABG O2 Saturation ABG O2 Content ABG Base Excess ABG Hemoglobin ABG Carboxyhemoglobin POC ABG HHb (Measured) ABG Methemoglobin ABG O2 Capacity ABG Potassium Hgb O2 Saturation Glucose Lactate Mechanical Rate FiO2 Tidal Volume PEEP Sodium Potassium Chloride Carbon Dioxide Anion Gap BUN Creatinine Est GFR ( Amer) Est GFR (Non-Af Amer) Random Glucose Calcium Phosphorus Magnesium Total Bilirubin AST ALT Alkaline Phosphatase Troponin I 0.37 H* D Total Protein Albumin Globulin Albumin/Globulin Ratio Procalcitonin Arterial Blood Potassium Influenza Typ A,B (EIA) Attending/Attestation - Attestation I have personally seen and examined this patient.: Yes I have fully participated in the care of the patient.: Yes I have reviewed all pertinent clinical information: Yes Notes (Text): Pt was seen and examined at bedside Agree with above note and assessment Pt with ICH , Cardiogenic shock due to Subtance abuse Pt needed Central line for CVP measurement as well as for IV access Central line was placed at bedside Consent C/w current mx Plan d.w pt family in detail. Risk and benefit explained in detail
--- NOTE | 2016-12-24 16:48 | RAD ---
HISTORY: central line placement confirmation COMPARISON: Comparison is made to the previous same-day exam. FINDINGS: LUNGS: No significant interval change in the lungs noted. PLEURA: No evidence of significant pleural effusion or pneumothorax CARDIOVASCULAR: Normal. OSSEOUS STRUCTURES: No significant abnormalities. VISUALIZED UPPER ABDOMEN: The NG tube is again seen her slightly high position OTHER FINDINGS: Interval insertion of right jugular central line seen at appropriate position. IMPRESSION: Insertion of right jugular central line. Otherwise no interval change since the previous exam.
--- NOTE | 2016-12-24 16:58 | US ---
HISTORY: transaminitis COMPARISON: None. TECHNIQUE: Sonographic evaluation of the abdomen. FINDINGS: LIVER: Measures 15.8 cm. Heterogeneous increased echogenicity of the liver parenchyma. No mass. Mild intrahepatic bile duct dilatation. GALLBLADDER: Unremarkable. No gallstones. COMMON BILE DUCT: Measures 3.2 mm. No stones. No dilatation. PANCREAS: Unremarkable as visualized. No mass. No ductal dilatation. RIGHT KIDNEY: Measures 11.9 x 4.1 x 5.5cm. Normal echogenicity. No calculus, mass, or hydronephrosis. LEFT KIDNEY: Measures 10.2 x 5.1 x 5.4cm. Normal echogenicity. No calculus, mass, or hydronephrosis. SPLEEN: Normal in size and contour. No mass. AORTA: No aneurysmal dilatation. IVC: Unremarkable. OTHER FINDINGS: None. IMPRESSION: Heterogeneous diffuse increased echogenicity of the liver suggestive of liver steatosis or parenchymal liver disease. Slight intrahepatic biliary ductal dilatation. No evidence of cholelithiasis or cholecystitis.
--- NOTE | 2016-12-24 17:59 | MRI ---
PROCEDURE: MRI BRAIN WITHOUT CONTRAST HISTORY: altered mental status COMPARISON: Comparison is made to the previous same-day CT of the head without contrast. TECHNIQUE: Multiplanar, multisequence MR images of the brain were obtained without intravenous contrast enhancement. FINDINGS: HEMORRHAGE: None DWI: No evidence of an acute or early subacute infarction. BRAIN PARENCHYMA: No mass effect or edema. No atrophy or chronic microvascular ischemic changes. VENTRICLES: Unremarkable. No hydrocephalus. CRANIUM: Unremarkable. ORBITS: Grossly unremarkable. PARANASAL SINUSES/MASTOIDS: Mild sinuses mucosal thickening without evidence of air-fluid level. VASCULAR SYSTEM: Skull base flow voids intact. OTHER FINDINGS: None. IMPRESSION: No evidence of acute infarction or acute pathology in the brain. Previously described questionable 4 millimeter focus of possible intraparenchymal hemorrhage at the left frontal lobe in the previous CT is not clearly visualized in the current exam. No evidence of mass lesion mass effect or midline shift. Mild sinuses mucosal thickening.
--- NOTE | 2016-12-24 18:02 | MRI ---
PROCEDURE: Magnetic Resonance Angiography Brain HISTORY: altered mental status COMPARISON: None available. TECHNIQUE: 3D time of flight MR angiography of the intracranial arteries was performed. Rotating maximum intensity projection images were generated. FINDINGS: INTERNAL CAROTID ARTERIES: Unremarkable. The skull base, petrous, cavernous and supraclinoid segments are bilaterally widely patient. ANTERIOR CEREBRAL ARTERIES: Unremarkable. A1 and A2 segments are widely patent. Smaller distal branches unremarkable, as visualized. MIDDLE CEREBRAL ARTERIES: Unremarkable. M1 and M2 segments are widely patent. Perisylvian branches grossly symmetric. POSTERIOR CIRCULATION: Basilar Artery: Unremarkable. Distal Vertebral Arteries: Unremarkable. Posterior Cerebral Arteries: Unremarkable. Posterior Inferior Cerebellar Arteries: Unremarkable. ANEURYSM/ VASCULAR MALFORMATIONS: None. OTHER FINDINGS: None. IMPRESSION: Unremarkable MR angiography of the brain.
--- NOTE | 2016-12-24 18:12 | CON ---
DATE: 12/24/2016 NEUROLOGY CONSULT CHIEF COMPLAINT: Altered mental status. HISTORY OF PRESENT ILLNESS: This is a 36-year-old man with past medical history of asthma, chronic back pain, depression, drug use in the past, intense marijuana. History was obtained from the girlfriend at bedside. Apparently, he was found unresponsive at home. The girlfriend said that she last spoke to him at 4:30 a.m., on text it was lucid, AO x3 but found at home and noticed that he was lying on his right side with froth and white foam around his mouth and lips and had increased respirations. Upon EMS, he found to be unresponsive, pinpoint pupils, shallow breathing, was given intranasal Narcan with no response and was intubated in the field and was brought to the hospital. His girlfriend says he has an underlying depression, he did not have some Benadryl as well last night and was taking recreation in addition to pain killers. His u-tox was negative except for marijuana. His echocardiogram shows low ejection fraction about close to 20% indicating cardiomyopathy. Currently, his pupils are pinpoint, he is slightly more alert, though intubated, moving all extremities. CAT scan of the head showed no acute intracranial abnormalities. PAST MEDICAL HISTORY: History of asthma and sciatica. REVIEW OF SYSTEM: A 14-point review of systems difficult to obtain at this time. ALLERGIES: TO CAT DANDER. MEDICATIONS: Reviewed via nurse's reconciliation sheet. SOCIAL HISTORY: He use to snort Percocet, pain killers and recreational Benadryl. EtOH socially and smoked marijuana regularly. 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 PHYSICAL EXAMINATION: VITAL SIGNS: Temperature afebrile, pulse of 111, blood pressure 112/60, respiratory rate 20, oxygen saturation 100% on ventilation. He is intubated. HEENT: Head is atraumatic and normocephalic. PERRLA. Has a NG tube in place, draining dark blue fluid. NECK: Supple. No JVD. No adenopathy noted. LUNGS: Decreased breath sounds bilaterally. HEART: Tachycardic. Regular rate and rhythm. No murmurs, rubs or gallops. S1, S2. ABDOMEN: Soft, nontender, nondistended. Bowel sounds are present. EXTREMITIES: No clubbing. No cyanosis. Peripheral pulses 2+ felt bilaterally. NEUROLOGIC: The patient is intubated on propofol dose. Pupils are pinpoint and PERRLA. Cranial nerves II through XII are intact. Difficult to assess speech at this time. Motor exam: Normal tone, spontaneously moving all extremities. Sensory: Withdraws to local and noxious stimuli. DTRs are 2+ throughout. Coordination and Gait deferred for now. LABORATORY DATA: Sodium is 144, potassium 4.9, chloride 102, carbon dioxide 29, BUN of 23, creatinine of 1.8, random glucose of 85, initial pCO2 was 91 when he came in. ASSESSMENT AND PLAN: This is a 36-year-old man with past history of asthma, chronic back pain, drug use in the past, intubated after being found unresponsive at home. CAT scan of the head showed no intracranial abnormality, I doubt there is any intracranial hemorrhage at all. He is moving spontaneous. His urine toxicology positive for cannabinoids only. Likely, his altered mental status is mostly a metabolic encephalopathy likely mostly drug induced and superimposed underlying cardiomyopathy and possible asthma exacerbation. At this time, I recommend: 1. Monitor his respiratory rate and prevent further hypercapnic respiratory acidosis. 2. Cardiology consult for his underlying cardiomyopathy given his echocardiogram results. 3. MRI of the brain without contrast to assess for any acute intracranial abnormality. 4. Monitor electrolytes and correct accordingly. Continue with ICU management. Fernando Peres MD
[2016-12-24] MEDS: Piperacillin/Tazobact 2.25gm 2.25 GM/100 ML BAG IVPB SCH (18:24)
[2016-12-24 19:49] LABS: BASO # 0.01 K/mm3 (0.0-2.0); BASO % 0.1 % (0.0-3.0); GRAN # 16.06 (1.4-6.5); GRAN % 93.2 % (50.0-68.0); HEMATOCRIT 45.7 % (42.0-52.0); LYMPH # 0.7 (1.2-3.4); LYMPH % 3.9 % (22.0-35.0); MEAN CELL VOLUME 94.6 fl (80.0-105.0); MEAN CORPUSCULAR HEMOGLOBIN 31.9 pg (25.0-35.0); MEAN CORPUSCULAR HGB CONC 33.7 g/dl (31.0-37.0); MEAN PLATELET VOLUME 11.4 fl (7.0-11.0); MONO # 0.5 (0.1-0.6); MONO % 2.8 % (1.0-6.0); PLATELET COUNT 210 10^3/uL (120.0-450.0); RED CELL DISTRIBUTION WIDTH 12.7 % (11.5-14.5); WHITE BLOOD COUNT 17.2 10^3/ul (4.5-11.0)
[2016-12-24 20:21] LABS: BAND 5 % (0-2); GIANT PLATELETS PRESENT; LARGE PLATELETS PRESENT; NEUTROPHIL 86 % (50.0-70.0); PLATELET ESTIMATE NORMAL (NORMAL)
[2016-12-24] MEDS ORDERED: methylPREDNISolone 40 MG in Sodium Chloride 0.9% 100 ML IVPB SCH (22:00)
[2016-12-25] MEDS: Piperacillin/Tazobact 2.25gm 2.25 GM/100 ML BAG IVPB SCH ×4 (00:14→17:06)
[2016-12-25] MEDS: MethylPREDNISolone 40 mg Vial IV SCH ×3 (02:14→14:09)
[2016-12-25 06:23] LABS: ARTERIAL BLOOD GAS HCO3 22.5 mmol/L (21-28); ARTERIAL BLOOD GAS PH 7.38 (7.35-7.45)
[2016-12-25 06:42] LABS: GRAN # 12.7 (1.4-6.5); GRAN % 93.8 % (50.0-68.0); HEMATOCRIT 42.9 % (42.0-52.0); LYMPH # 0.5 (1.2-3.4); LYMPH % 3.6 % (22.0-35.0); MEAN CELL VOLUME 94.1 fl (80.0-105.0); MEAN CORPUSCULAR HEMOGLOBIN 31.6 pg (25.0-35.0); MEAN CORPUSCULAR HGB CONC 33.6 g/dl (31.0-37.0); MONO # 0.4 (0.1-0.6); MONO % 2.6 % (1.0-6.0); RED CELL DISTRIBUTION WIDTH 12.9 % (11.5-14.5); WHITE BLOOD COUNT 13.5 10^3/ul (4.5-11.0)
[2016-12-25 06:44] LABS: ALB/GLOB RATIO 1.6 (1.1-1.8); ALKALINE PHOSPHATASE 42 U/L (38-126); ALT/SGPT 104 U/L (7-56); AST/SGOT 93 U/L (17-59); BILIRUBIN,TOTAL 0.5 mg/dL (0.2-1.3); BLOOD UREA NITROGEN 29 mg/dL (7-21); CARBON DIOXIDE 29 mmol/L (21-33); CHLORIDE 105 mmol/L (98-107); GFR AFRICAN-AMERICAN > 60; GLUCOSE,RANDOM 118 mg/dL (70-110); MAGNESIUM 2.4 mg/dL (1.7-2.2); PHOSPHOROUS 3.3 mg/dL (2.5-4.5); POTASSIUM 4.4 mmol/L (3.6-5.0); SODIUM 142 mmol/L (132-148); TOTAL PROTEIN 6.5 g/dL (5.8-8.3)
[2016-12-25 06:47] LABS: INR 1.2 (0.93-1.08)
[2016-12-25 08:07] LABS: CHOLESTEROL 126 mg/dL (130-200)
[2016-12-25] MEDS: Vancomycin 1gm in NS 250ml 1 GM/250 ML BAG IVPB SCH (09:09)
[2016-12-25] MEDS: Sodium Chloride 0.9% 1,000 ML IV SCH ×4 (09:11→21:31)
--- NOTE | 2016-12-25 09:27 | CARD ---
APPROVED REPORT EXAM: Two-dimensional and M-mode echocardiogram with Doppler and color Doppler. INDICATION NSTEMI 2D DIMENSIONS Left Atrium (2D)3.3 (1.6-4.0cm)IVSd1.1 (0.7-1.1cm) LVDd5.0 (3.9-5.9cm)PWd1.2 (0.7-1.1cm) LVDs4.4 (2.5-4.0cm)FS (%) 12.5 % LVEF (%)26.9 (>50%) M-Mode DIMENSIONS Aortic Root3.60 (2.2-3.7cm)Aortic Cusp Exc.2.30 (1.5-2.0cm) Aortic Valve AoV Peak Qvjejomt63.6cm/Jose Armando Peak GR.3mmHg Mitral Valve MV E Ksraiugm58.8cm/sMV A Jzniguft76.4cm/sE/A ratio1.2 TDI Lateral E' Peak V7.99cm/sMedial E' Peak V5.65cm/sE/Lateral E'7.0 E/Medial E'9.9 Pulmonary Valve PV Peak Vphsiwbz48.4cm/sPV Peak Grad.1mmHg Tricuspid Valve TR Peak [id number] [id number] Peak Gr.20mmHg [id number] LEFT VENTRICLE The left ventricle is normal size. There is normal left ventricular wall thickness. The systolic function is moderately impaired.[id number]-[id number] Regional wall motion abnormalities noted. There is mild to moderate hypokinesis in the apical anterior wall. There is mild to moderate hypokinesis in the mid-inferolateral wall. The left ventricular diastolic function is normal. No left ventricle thrombus noted on this study. There is no ventricular septal defect visualized. There is no left ventricular aneurysm. There is no mass noted in the left ventricle. RIGHT VENTRICLE The right ventricle is mildly dilated. The right ventricle is mildly hypertrophied. Systolic function of RV is mildly to moderately reduced. ATRIA The left atrium size is normal. The right atrium size is normal. The interatrial septum is intact with no evidence for an atrial septal defect. AORTIC VALVE The aortic valve is thickened but opens well. No aortic regurgitation is present. There is no aortic valvular stenosis. There is no aortic valvular vegetation. MITRAL VALVE The mitral valve is thickened but opens well. Mitral regurgitation is trace. There is no mitral valve stenosis. There is no evidence of mitral valve prolapse. TRICUSPID VALVE The tricuspid valve leaflets are thickened , but open well. There is trace to mild tricuspid regurgitation.RVSP-30 mmof Hg. There is no tricuspid valve stenosis. There is no tricuspid valve prolapse or vegetation. PULMONIC VALVE The pulmonary valve is normal in structure. There is no pulmonic valvular regurgitation. There is no pulmonic valvular stenosis. GREAT VESSELS The aortic root is normal in size. The ascending aorta is normal in size. The pulmonary artery is normal. The IVC is normal in size and collapses >50% with inspiration. PERICARDIAL EFFUSION There is no pleural effusion. There is no pericardial effusion. <Conclusion> TDS, Pt on Vent. The left ventricle is normal size. There is normal left ventricular wall thickness. The systolic function is moderately impaired.EF-25-30 The right ventricle is mildly dilated. Systolic function of RV is mildly to moderately reduced. Mitral regurgitation is trace. There is trace to mild tricuspid regurgitation.RVSP-30 mmof Hg. The IVC is normal in size and collapses >50% with inspiration. There is no pericardial effusion. No Vegetation or thrombus noted.
--- NOTE | 2016-12-25 10:04 | CP.PCM.CON ---
History of Present Illness - History of Present Illness History of Present Illness: 36 year old male with PMH of asthma, history of sciatica, history of drug use was brought in to [facility] after he was found by his girlfriend unconscious in bed with foam around his mouth and blue lips and in respiratory distress. Patient only recalls breathign heavily prior to losing consciousness. Patient apparently started smoking again and may have started using illicit drug again after having bouts of depression. Currently the patient is awake and alert, denies fever or chills but has some dyspnea on exertion, cough with clear phlegm, denies headache currently, no nausea or vomiting, no abdominal pain, no dysphagia, no sore throat, no diarrhea, no dysuria. In the ED, CXR was done which showed some atelectasis but could not rule out pneumonia. Infectious diseases consult is requested to further evaluate and manage. Review of Systems - Review of Systems All systems: reviewed and no additional remarkable complaints except (as per HPI ) Past Patient History - Tetanus Immunizations Tetanus Immunization: Up to Date - Past Social History Smoking Status: Never Smoked - CARDIAC Hx Cardiac Disorders: No - PULMONARY Hx Asthma: Yes - NEUROLOGICAL Hx Neurological Disorder: No - HEENT Hx HEENT Problems: No - RENAL Hx Chronic Kidney Disease: No - ENDOCRINE/METABOLIC Hx Endocrine Disorders: No - HEMATOLOGICAL/ONCOLOGICAL Hx Blood Disorders: No - INTEGUMENTARY Hx Dermatological Problems: No - MUSCULOSKELETAL/RHEUMATOLOGICAL Hx Musculoskeletal Disorders: No Hx Falls: No - GASTROINTESTINAL Hx Gastroesophageal Reflux: Yes - GENITOURINARY/GYNECOLOGICAL Hx Genitourinary Disorders: No - PSYCHIATRIC Hx Substance Use: No - SURGICAL HISTORY Hx Surgeries: No - ANESTHESIA Hx Anesthesia: No Meds Allergies/Adverse Reactions: Allergies Allergy/AdvReac Type Severity Reaction Status Date / Time cat dander Allergy RASH Verified 12/24/16 10:25 - Medications Medications: Current Medications Propofol (Diprivan) 1,000 mg in 100 mls @ 2.762 mls/hr IV .Q24H PRN; Protocol; 5 MCG/KG/MIN PRN Reason: TITRATE PER MD ORDER Last Admin: 12/24/16 23:47 Dose: 10 mcg/kg/min, 5.525 mls/hr Vancomycin HCl (Vancomycin 1gm) 1 gm in 250 mls @ 167 mls/hr IVPB DAILY SILVERIO PRN Reason: Protocol Piperacillin Sod/Tazobactam Sod (Zosyn 2.25 Gm In 0.9% 100 Ml) 2.25 gm in 100 mls @ 100 mls/hr IVPB Q6 SILVERIO PRN Reason: Protocol Stop: 12/25/16 00:59 Last Admin: 12/25/16 00:14 Dose: 100 mls/hr Sodium Chloride (Sodium Chloride 0.9%) 1,000 mls @ 100 mls/hr IV .Q10H SILVERIO Last Admin: 12/24/16 13:36 Dose: 100 mls/hr Lorazepam (Ativan) 2 mg IVP ONCE PRN; Protocol PRN Reason: Agitation Last Admin: 12/24/16 16:45 Dose: 2 mg Methylprednisolone (Solu-Medrol) 40 mg IV Q6H SILVERIO Last Admin: 12/24/16 20:16 Dose: 40 mg Pantoprazole Sodium (Protonix Inj) 40 mg IVP Q12 SILVERIO Last Admin: 12/24/16 23:59 Dose: 40 mg Physical Exam - Constitutional Appears: Non-toxic - Head Exam Head Exam: NORMAL INSPECTION - ENT Exam ENT Exam: Mucous Membranes Moist - Neck Exam Neck exam: Negative for: Lymphadenopathy, Meningismus - Respiratory Exam Respiratory Exam: Rales (scattered) - Cardiovascular Exam Cardiovascular Exam: +S1, +S2 - GI/Abdominal Exam GI & Abdominal Exam: Soft. absent: Tenderness Results - Vital Signs Recent Vital Signs: Last Vital Signs Temp 98.9 F 12/24/16 20:00 Pulse 90 12/24/16 18:00 Resp 18 12/24/16 15:30 BP 99/60 L 12/24/16 16:26 Pulse Ox 97 12/24/16 16:26 - Labs Result Diagrams: 12/25/16 06:00 12/25/16 06:00 Labs: Laboratory Results - last 24 hr 12/24/16 12/24/16 12/24/16 11:45 12:00 12:15 WBC RBC Hgb Hct MCV MCH MCHC RDW Plt Count MPV Gran % Lymph % (Auto) [place] % (Auto) Eos % (Auto) Baso % (Auto) Gran # Lymph # [place] # Eos # Baso # Neutrophils % (Manual) Band Neutrophils % Lymphocytes % (Manual) Monocytes % (Manual) Platelet Evaluation Large Platelets Giant Platelets pCO2 91 H* 64 H pO2 57.0 L 78.0 L HCO3 34.0 H 23.9 ABG pH 7.18 L* 7.18 L* ABG Total CO2 36.8 H 25.9 ABG O2 Saturation 91.7 L 96.9 ABG O2 Content 17.6 19.7 ABG Base Excess 2.4 -5.8 L ABG Hemoglobin 14.3 15.1 ABG Carboxyhemoglobin 4.0 H 3.5 H POC ABG HHb (Measured) 7.9 H 3.0 ABG Methemoglobin 0.7 0.7 ABG O2 Capacity 19.2 20.3 ABG Potassium Hgb O2 Saturation 87.4 L 92.8 L Glucose Lactate Mechanical Rate FiO2 100.0 100.0 Tidal Volume PEEP Sodium 144 Potassium 4.9 Chloride 102 Carbon Dioxide 29 Anion Gap 18 BUN 23 H Creatinine 1.8 H Est GFR ( Amer) 52 Est GFR (Non-Af Amer) 43 Random Glucose 85 Calcium 8.8 Phosphorus 9.2 H Magnesium 3.0 H Total Bilirubin 0.5 AST 197 H ALT 156 H Alkaline Phosphatase 64 Troponin I Total Protein 7.6 Albumin 4.6 Globulin 3.0 Albumin/Globulin Ratio 1.5 Procalcitonin Arterial Blood Potassium Influenza Typ A,B (EIA) 12/24/16 12/24/16 12/24/16 12:54 14:00 14:40 WBC RBC Hgb Hct MCV MCH MCHC RDW Plt Count MPV Gran % Lymph % (Auto) [place] % (Auto) Eos % (Auto) Baso % (Auto) Gran # Lymph # [place] # Eos # Baso # Neutrophils % (Manual) Band Neutrophils % Lymphocytes % (Manual) Monocytes % (Manual) Platelet Evaluation Large Platelets Giant Platelets pCO2 52 H pO2 176.0 H HCO3 23.3 ABG pH 7.26 L ABG Total CO2 24.9 ABG O2 Saturation 99.7 H ABG O2 Content ABG Base Excess -4.3 L ABG Hemoglobin ABG Carboxyhemoglobin POC ABG HHb (Measured) ABG Methemoglobin ABG O2 Capacity ABG Potassium 5.5 H Hgb O2 Saturation Glucose 114 H Lactate 1.5 Mechanical Rate 14 FiO2 100.0 Tidal Volume 500 PEEP 5 Sodium 137.0 Potassium Chloride 106.0 Carbon Dioxide Anion Gap BUN Creatinine Est GFR ( Amer) Est GFR (Non-Af Amer) Random Glucose Calcium Phosphorus Magnesium Total Bilirubin AST ALT Alkaline Phosphatase Troponin I Total Protein Albumin Globulin Albumin/Globulin Ratio Procalcitonin 0.78 H Arterial Blood Potassium 5.5 H Influenza Typ A,B (EIA) Negative for flu a/b 12/24/16 12/24/16 18:30 18:30 WBC 17.2 H RBC 4.83 Hgb 15.4 Hct 45.7 MCV 94.6 D MCH 31.9 MCHC 33.7 RDW 12.7 Plt Count 210 MPV 11.4 H Gran % 93.2 H Lymph % (Auto) 3.9 L [place] % (Auto) 2.8 Eos % (Auto) 0.0 L Baso % (Auto) 0.1 Gran # 16.06 H Lymph # 0.7 L [place] # 0.5 Eos # 0.0 Baso # 0.01 Neutrophils % (Manual) 86 H Band Neutrophils % 5 H Lymphocytes % (Manual) 3 L Monocytes % (Manual) 6 Platelet Evaluation Normal Large Platelets Present Giant Platelets Present pCO2 pO2 HCO3 ABG pH ABG Total CO2 ABG O2 Saturation ABG O2 Content ABG Base Excess ABG Hemoglobin ABG Carboxyhemoglobin POC ABG HHb (Measured) ABG Methemoglobin ABG O2 Capacity ABG Potassium Hgb O2 Saturation Glucose Lactate Mechanical Rate FiO2 Tidal Volume PEEP Sodium Potassium Chloride Carbon Dioxide Anion Gap BUN Creatinine Est GFR ( Amer) Est GFR (Non-Af Amer) Random Glucose Calcium Phosphorus Magnesium Total Bilirubin AST ALT Alkaline Phosphatase Troponin I 0.37 H* D Total Protein Albumin Globulin Albumin/Globulin Ratio Procalcitonin Arterial Blood Potassium Influenza Typ A,B (EIA) Assessment & Plan - Assessment and Plan (Free Text) Plan: Assessment Systemic Inflammatory Response Syndrome, consider due to acute encephalopathy etiology to be determined R/O seizures, R/O drug-induced R/O aspiration pneumonia asthma history of sciatica history of drug use Plan Started patient on Vancomycin and zosyn pending sputum cx, blood cx, PCT awaiting Neuro evaluation will check Rapid HIV will monitor clinically
--- NOTE | 2016-12-25 10:27 | PN ---
DATE: 12/25/2016 FITNESS LEADER NOTE SUBJECTIVE: The patient is extubated at this time and doing very on high flow oxygen. Awake and alert. Responding to questions appropriately. The patient has no cough or congestion. No fevers or chills. No nausea or vomiting and O2 saturation 99%. OBJECTIVE: VITAL SIGNS: Temperature 98.3, pulse 75, respirations 18, and blood pressure 113/60. HEENT: Head is atraumatic and normocephalic. Eyes, reactive to light. Ears, nose, and throat seemed to be within normal limits. NECK: Supple. No JVD. No thyroid enlargement. No lymph nodes. HEART: Regular rate and rhythm. Normal S1 and S2. LUNGS: Reveal good breath sounds bilaterally. ABDOMEN: Soft and nontender. Normal bowel sounds. GENITALIA: Deferred. RECTAL: Deferred. MUSCULOSKELETAL: No joint deformities. EXTREMITIES: Revealed no edema. NEUROLOGIC: He seemed to be grossly intact. LABORATORY DATA: As far as his laboratories are concerned, the patient's white count is 13.5, hemoglobin is 14.4, hematocrit 42.9 with platelet of 199,000. Arterial blood gas revealed a pH of 7.38, PCO2 of 38, and PO2 of 114. Sodium is 142, potassium 4.4, chloride 105, CO2 of 29 with BUN of 29, creatinine of 1.1, and a glucose of 118. Note that the patient's troponin is 0.39. Chest x-ray is pending. IMPRESSION: As far as my impression, the patient is status post respiratory failure and ventilator support. The patient has history of drug abuse, heroin, as well as history of asthma/chronic obstructive pulmonary disease. There is a possibility of small cerebral hemorrhage as well. PLAN: As far as our plan, we will continue with O2 support and pulmonary toilet. The patient is on antibiotic of vancomycin and Zosyn and is getting DuoNeb for prompt bronchodilation, as well as Protonix, IV fluids, and Solu-Medrol. We will continue to treat aggressively along with the other consultants and the primary care doctor. Finesse Lyle MD
--- NOTE | 2016-12-25 10:55 | RAD ---
HISTORY: intubated COMPARISON: Comparison is made to the previous exam dated 12/24/2016 FINDINGS: LUNGS: Interval slight improvement in the right lung since the previous exam. Otherwise no significant change PLEURA: No significant pleural effusion identified, no pneumothorax apparent. CARDIOVASCULAR: Normal. OSSEOUS STRUCTURES: No significant abnormalities. VISUALIZED UPPER ABDOMEN: The NG tube is again seen and slightly high position. OTHER FINDINGS: Right jugular central line is again seen in place IMPRESSION: Slight interval improvement in the right lung. High position of the NG tube is again noted.
[2016-12-25 11:05] LABS: VENOUS BLOOD GAS BASE EXCESS 1.5 mmol/L (0.0-2.0); VENOUS BLOOD PH 7.38 (7.32-7.43)
[2016-12-25] MEDS ORDERED: Albuterol 0.083% Inhal Sol (2.5 mg/3 mL) UD ONE (13:37)
[2016-12-25] MEDS: Albuterol-Ipratrop 3 mg / 0.5 (3 ml) UD IH SCH (13:38)
[2016-12-25] MEDS: Albuterol-Ipratrop 3 mg / 0.5 (3 ml) UD IH PRN (13:39)
--- NOTE | 2016-12-25 14:10 | CP.PCM.PN ---
<John Briones - Last Filed: 12/25/16 14:05> Subjective - Date & Time of Evaluation Date of Evaluation: 12/25/16 Time of Evaluation: 14:05 - Subjective Subjective: Medicine Progress Note: Pt seen and examined at bedside. Pt self-extubated himself. Pt is AOx3 now. Pt denied illicit drug use other than marijuana. Pt denied CP, nausea, vomiting, diarrhea, abdominal pain, fever, chills, dizziness, or DIAZ. Objective - Vital Signs/Intake and Output Vital Signs (last 24 hours): Temp Pulse Resp BP Pulse Ox 97.9 F 111 H 24 127/71 99 12/25/16 08:00 12/25/16 11:00 12/25/16 11:00 12/25/16 11:00 12/25/16 11:00 Intake and Output: 12/25/16 12/25/16 06:59 18:59 Intake Total 1306 Output Total 1100 Balance 206 - Medications Medications: Current Medications Albuterol/Ipratropium (Duoneb 3 Mg/0.5 Mg (3 Ml) Ud) 3 ml IH [id number] PRN PRN Reason: Shortness of Breath Last Admin: 12/25/16 13:39 Dose: 3 ml Vancomycin HCl (Vancomycin 1gm) 1 gm in 250 mls @ 167 mls/hr IVPB DAILY SILVEIRO PRN Reason: Protocol Last Admin: 12/25/16 09:09 Dose: 167 mls/hr Piperacillin Sod/Tazobactam Sod (Zosyn 2.25 Gm In 0.9% 100 Ml) 2.25 gm in 100 mls @ 100 mls/hr IVPB Q6 SILVERIO PRN Reason: Protocol Stop: 12/31/16 18:01 Last Admin: 12/25/16 11:16 Dose: 100 mls/hr Sodium Chloride (Sodium Chloride 0.9%) 1,000 mls @ 100 mls/hr IV .Q10H SILVERIO Last Admin: 12/25/16 09:11 Dose: 100 mls/hr Lorazepam (Ativan) 2 mg IVP ONCE PRN; Protocol PRN Reason: Agitation Last Admin: 12/24/16 16:45 Dose: 2 mg Methylprednisolone (Solu-Medrol) 40 mg IVP Q8H SILVERIO Pantoprazole Sodium (Protonix Inj) 40 mg IVP Q12 SILVERIO Last Admin: 12/25/16 09:09 Dose: 40 mg - Labs Labs: 12/25/16 06:00 12/25/16 06:00 PT 13.2 SECONDS (9.4-12.5) H 12/25/16 06:00 INR 1.20 (0.93-1.08) H 12/25/16 06:00 APTT 32.7 Seconds (25.1-36.5) 12/24/16 10:30 - Constitutional Appears: No Acute Distress - Head Exam Head Exam: ATRAUMATIC, NORMOCEPHALIC - Eye Exam Eye Exam: EOMI, PERRL - ENT Exam ENT Exam: Mucous Membranes Moist - Neck Exam Neck Exam: Full ROM. absent: Lymphadenopathy, Tenderness, Thyromegaly - Respiratory Exam Respiratory Exam: Wheezes (b/l). absent: Accessory Muscle Use, Decreased Breath Sounds, Clear to Ausculation Bilateral, Rales, Rhonchi, Respiratory Distress - Cardiovascular Exam Cardiovascular Exam: RRR, +S1, +S2. absent: Diastolic murmur, Gallop, Rubs, Murmur - GI/Abdominal Exam GI & Abdominal Exam: Soft. absent: Distended, Guarding, Tenderness, Rebound - Extremities Exam Extremities Exam: Full ROM, Normal Capillary Refill, Normal Inspection - Back Exam Back Exam: NORMAL INSPECTION - Neurological Exam Neurological Exam: Alert, Awake, Oriented x3 - Psychiatric Exam Psychiatric exam: Normal Affect, Normal Mood - Skin Skin Exam: Dry, Intact, Normal Color, Warm Assessment and Plan - Assessment and Plan (Free Text) Assessment: 36 year old male PMHx asthma, sciatica, and drug use was intubated after being found unresponsive by at home. Patient was admitted to ICU for evaluation due to AMS, respiratory failure, SIRS, and hematemesis. Pt currently self-extubated and AMS likely due to asthma exacerbation. Plan: 1. Respiratory Failure likely 2/2 asthma exacerbation - Self-extubated - VBG on admission pH: 6.95, pCO2: 133, HCO3: 29.2, Total CO2: 33.3 - ABG showed hypercapnic respiratory acidosis on admission, which has resolved on repeat ABC - CXR showed heterogeneous opacities in the lungs more prominent at the perihilar region. Suspicion for partial atelectasis of the left lung associated with mediastinal shift to the left. Stomach is distended. - Duoneb 3ml inh q6 - Solumedrol 40mg ivp q8 2. AMS, resolved - drug overdose vs asthma exacerbation vs unwitnessed withdrawal seizure - Head CT showed questionable 4mm focus on increased attenuation at the left frontal lobe peripherally. Possibility of a small hemorrhage cannot be excluded - CT cervical spine showed no evidence of acute fracture of subluxation - Brain MRI showed no evidence of acute infarction or acute pathology in the brain - Head MRA was unremarkable - UDS: + cannabinoids only - Neurology consulted - Neurosurgery consulted - Psych consulted 3. SIRS - ID consulted - Blood cultures negative after 24 hours - Urine cultures negative - Sputum cultures negative - F/u procalcitonin, HIV - Zosyn and Vancomycin continued 4. Upper GI Bleed - Protonix 40mg ivp q12 - NPO - GI consulted 5. Transaminitis - LFT downtrending - f/u Acute Hep panel - Abdominal US showed heterogeneous diffuse increased echogencity of the liver suggestive of liver steatosis or parenchymal liver disease. Slight intrahepatic biliary ductal dilatation. No evidence of cholelithiaisis or cholecystitis 6. Elevated troponin r/o ACS - Troponin 0.12, 0.37, 0.39 - EKG showed sinus tachycardia - Echo showed LVEF of 26.9% - Cardio consulted 7. Acute Kidney Injury, resolved - BUN/Cr 29/1.1 - NS @ 100cc/hr GI ppx: Protonix DVT ppx: SCDs Diet: Soft diet Fluids: NS @ 100cc/hr Precautions: Aspiration, Seizure Pt seen and discussed in detail with Dr. Steward. Leon Briones, PGY1 <Hieu Steward - Last Filed: 12/25/16 16:11> Objective - Vital Signs/Intake and Output Vital Signs (last 24 hours): Temp Pulse Resp BP Pulse Ox 98 F 105 H 23 140/98 H 95 12/25/16 12:00 12/25/16 14:00 12/25/16 14:00 12/25/16 13:00 12/25/16 13:00 Intake and Output: 12/25/16 12/25/16 06:59 18:59 Intake Total 1306 Output Total 1100 Balance 206 - Medications Medications: Current Medications Albuterol/Ipratropium (Duoneb 3 Mg/0.5 Mg (3 Ml) Ud) 3 ml IH [id number] PRN PRN Reason: Shortness of Breath Last Admin: 12/25/16 13:39 Dose: 3 ml Vancomycin HCl (Vancomycin 1gm) 1 gm in 250 mls @ 167 mls/hr IVPB DAILY SILVERIO PRN Reason: Protocol Last Admin: 12/25/16 09:09 Dose: 167 mls/hr Piperacillin Sod/Tazobactam Sod (Zosyn 2.25 Gm In 0.9% 100 Ml) 2.25 gm in 100 mls @ 100 mls/hr IVPB Q6 SILVERIO PRN Reason: Protocol Stop: 12/31/16 18:01 Last Admin: 12/25/16 11:16 Dose: 100 mls/hr Sodium Chloride (Sodium Chloride 0.9%) 1,000 mls @ 100 mls/hr IV .Q10H SILVERIO Last Admin: 12/25/16 09:11 Dose: 100 mls/hr Lorazepam (Ativan) 2 mg IVP ONCE PRN; Protocol PRN Reason: Agitation Last Admin: 12/24/16 16:45 Dose: 2 mg Methylprednisolone (Solu-Medrol) 40 mg IVP Q8H SILVERIO Last Admin: 12/25/16 14:15 Dose: 40 mg Pantoprazole Sodium (Protonix Inj) 40 mg IVP Q12 SILVERIO Last Admin: 12/25/16 09:09 Dose: 40 mg - Labs Labs: 12/25/16 06:00 12/25/16 06:00 PT 13.2 SECONDS (9.4-12.5) H 12/25/16 06:00 INR 1.20 (0.93-1.08) H 12/25/16 06:00 APTT 32.7 Seconds (25.1-36.5) 12/24/16 10:30 Attending/Attestation - Attestation I have personally seen and examined this patient.: Yes I have fully participated in the care of the patient.: Yes I have reviewed all pertinent clinical information, including history, physical exam and plan: Yes Notes (Text): 12/25/16 15:58 36 year old male with past medical history of asthma, sciatica and substance abuse who was found unresponsive by family at home. He was intubated in the field for acute respiratory distress. Urine drug screen positive for cannabinoids. CT head showed questionable 4 mm focus on increased attenuation at the left frontal lobe peripherally; possibility of a small hemorrhage cannot be excluded. This was followed up with a MRI brain / MRA head which are negative. CT cervical spine was negative. Neurology evaluation was appreciated. He was self extubated this morning. He is alert and oriented to his baseline. He denies any illicit drug use other than marijuana. He is on iv steroids for asthma exacerbation. He was seen by psychiatrist this morning; will follow up with recommendations. He is on broad spectrum antibiotics for SIRS. Leukocytosis has improved. Consider de-escalating antibiotics if ok with ID. He initially had coffee ground output in his NGT. Consider traumatic NGT insertion as per GI. No active bleeding noted. H/H is stable. Diet was advanced. He is on PPI. +Troponins. Rule out NSTEMI. He denies any chest pain. Echocardiogram was reviewed as above. Cardiology evaluation is pending. Okay to give aspirin as per GI. He was not started on statin due to elevated LFTs or on BB given ? history of recent substance abuse (?cocaine). Continue to monitor LFTs closely. Abdominal US was reviewed. Hepatitis panel is pending. MIKEY has resolved after IVF. Possible downgrade to telemetry unit today. Hieu Steward MD Hospitalist.
[2016-12-25] MEDS: MethylPREDNISolone 40 mg Vial IVP SCH ×2 (14:15→21:30)
--- NOTE | 2016-12-25 15:22 | CP.PCM.CON ---
<Ming Heredia - Last Filed: 12/25/16 15:23> History of Present Illness - History of Present Illness History of Present Illness: PGY4 Initial GI Consult Jorge Alberto Cast is a 36M w/ hx of polysubstance abuse who [place] [facility] [place] being found unresponsive at home. He was intubated in the field and admitted to the ICU. He was supposedly given narcan in the field without any improvement. He was found to have significant coffee-ground emesis from his OG tube. There was never any reported bright red blood. As per girlfriend, hwo was bedside, there is no prior report of hamatemesis, and coffee-ground emesis. He has been given PPI BID since admission. He had a central lines placed but no reports of hemodynamic unstability. He has had some tropinemia and cardiology is on board. RN does not report any BRBPR or melena. PMH: asthma, sciatica PSH: Denies All: cat dander SH: Tobacco use (recent), ETOH use sociallyl, MJ use, heroin use, hx Percocet and other painkiller abuse, hx Benadryl abuse Endoscopy Hx: unknown ROS: 12-point ROS conducted, neg other than above Past Patient History - Tetanus Immunizations Tetanus Immunization: Up to Date - Past Social History Smoking Status: Never Smoked - CARDIAC Hx Cardiac Disorders: No - PULMONARY Hx Asthma: Yes - NEUROLOGICAL Hx Neurological Disorder: No - HEENT Hx HEENT Problems: No - RENAL Hx Chronic Kidney Disease: No - ENDOCRINE/METABOLIC Hx Endocrine Disorders: No - HEMATOLOGICAL/ONCOLOGICAL Hx Blood Disorders: No - INTEGUMENTARY Hx Dermatological Problems: No - MUSCULOSKELETAL/RHEUMATOLOGICAL Hx Musculoskeletal Disorders: No Hx Falls: No - GASTROINTESTINAL Hx Gastroesophageal Reflux: Yes - GENITOURINARY/GYNECOLOGICAL Hx Genitourinary Disorders: No - PSYCHIATRIC Hx Substance Use: No - SURGICAL HISTORY Hx Surgeries: No - ANESTHESIA Hx Anesthesia: No Meds Allergies/Adverse Reactions: Allergies Allergy/AdvReac Type Severity Reaction Status Date / Time cat dander Allergy RASH Verified 12/24/16 10:25 - Medications Medications: Current Medications Albuterol/Ipratropium (Duoneb 3 Mg/0.5 Mg (3 Ml) Ud) 3 ml IH [id number] PRN PRN Reason: Shortness of Breath Last Admin: 12/25/16 13:39 Dose: 3 ml Vancomycin HCl (Vancomycin 1gm) 1 gm in 250 mls @ 167 mls/hr IVPB DAILY SILVERIO PRN Reason: Protocol Last Admin: 12/25/16 09:09 Dose: 167 mls/hr Piperacillin Sod/Tazobactam Sod (Zosyn 2.25 Gm In 0.9% 100 Ml) 2.25 gm in 100 mls @ 100 mls/hr IVPB Q6 SILVERIO PRN Reason: Protocol Stop: 12/31/16 18:01 Last Admin: 12/25/16 11:16 Dose: 100 mls/hr Sodium Chloride (Sodium Chloride 0.9%) 1,000 mls @ 100 mls/hr IV .Q10H SILVERIO Last Admin: 12/25/16 09:11 Dose: 100 mls/hr Lorazepam (Ativan) 2 mg IVP ONCE PRN; Protocol PRN Reason: Agitation Last Admin: 12/24/16 16:45 Dose: 2 mg Methylprednisolone (Solu-Medrol) 40 mg IVP Q8H [facility] Last Admin: 12/25/16 14:15 Dose: 40 mg Pantoprazole Sodium (Protonix Inj) 40 mg IVP Q12 [facility] Last Admin: 12/25/16 09:09 Dose: 40 mg Physical Exam - Constitutional Appears: No Acute Distress Additional comments: sedated - Head Exam Head Exam: NORMAL INSPECTION - Eye Exam Eye Exam: Normal appearance - ENT Exam ENT Exam: Mucous Membranes Moist - Neck Exam Neck exam: Positive for: Normal Inspection - Respiratory Exam Respiratory Exam: Clear to Auscultation Bilateral, NORMAL BREATHING PATTERN. absent: Prolonged Expiratory Phase, Rales, Rhonchi, Wheezes, Respiratory Distress - Cardiovascular Exam Cardiovascular Exam: REGULAR RHYTHM, +S1, +S2 - GI/Abdominal Exam GI & Abdominal Exam: Normal Bowel Sounds, Soft. absent: Distended, Guarding, Hernia, Organomegaly, Rigid - Extremities Exam Extremities exam: Negative for: joint swelling, pedal edema - Neurological Exam Additional comments: sedated - Psychiatric Exam Additional comments: sedated - Skin Skin Exam: Dry, Intact, Normal Color, Warm Results - Vital Signs Recent Vital Signs: Last Vital Signs Temp 98 F 12/25/16 12:00 Pulse 105 H 12/25/16 14:00 Resp 23 12/25/16 14:00 BP 140/98 H 12/25/16 13:00 Pulse Ox 95 11/12/17 13:00 - Labs Result Diagrams: 12/25/16 06:00 12/25/16 06:00 Labs: Laboratory Results - last 24 hr 12/24/16 12/24/16 12/24/16 14:00 18:30 18:30 WBC 17.2 H RBC 4.83 Hgb 15.4 Hct 45.7 MCV 94.6 D MCH 31.9 MCHC 33.7 RDW 12.7 Plt Count 210 MPV 11.4 H Gran % 93.2 H Lymph % (Auto) 3.9 L [place] % (Auto) 2.8 Eos % (Auto) 0.0 L Baso % (Auto) 0.1 Gran # 16.06 H Lymph # 0.7 L [place] # 0.5 Eos # 0.0 Baso # 0.01 Neutrophils % (Manual) 86 H Band Neutrophils % 5 H Lymphocytes % (Manual) 3 L Monocytes % (Manual) 6 Platelet Evaluation Normal Large Platelets Present Giant Platelets Present PT INR pCO2 pO2 HCO3 ABG pH ABG Total CO2 ABG O2 Saturation ABG Base Excess ABG Potassium VBG pH VBG pCO2 VBG HCO3 VBG Total CO2 VBG O2 Sat (Calc) VBG Base Excess VBG Potassium Glucose Lactate FiO2 Sodium Potassium Chloride Carbon Dioxide Anion Gap BUN Creatinine Est GFR ( Amer) Est GFR (Non-Af Amer) Random Glucose Calcium Phosphorus Magnesium Total Bilirubin AST ALT Alkaline Phosphatase Troponin I 0.37 H* D Total Protein Albumin Globulin Albumin/Globulin Ratio Triglycerides Cholesterol LDL Cholesterol Direct HDL Cholesterol Procalcitonin 0.78 H Arterial Blood Potassium Venous Blood Potassium 12/25/16 12/25/16 12/25/16 01:00 06:00 06:00 WBC 13.5 H D RBC 4.56 Hgb 14.4 Hct 42.9 MCV 94.1 MCH 31.6 MCHC 33.6 RDW 12.9 Plt Count 199 MPV 11.0 Gran % 93.8 H Lymph % (Auto) 3.6 L [place] % (Auto) 2.6 Eos % (Auto) 0.0 L Baso % (Auto) 0.0 Gran # 12.70 H Lymph # 0.5 L [place] # 0.4 Eos # 0.0 Baso # 0.00 Neutrophils % (Manual) Band Neutrophils % Lymphocytes % (Manual) Monocytes % (Manual) Platelet Evaluation Large Platelets Giant Platelets PT INR pCO2 pO2 HCO3 ABG pH ABG Total CO2 ABG O2 Saturation ABG Base Excess ABG Potassium VBG pH VBG pCO2 VBG HCO3 VBG Total CO2 VBG O2 Sat (Calc) VBG Base Excess VBG Potassium Glucose Lactate FiO2 Sodium 142 Potassium 4.4 Chloride 105 Carbon Dioxide 29 Anion Gap 12 BUN 29 H Creatinine 1.1 Est GFR ( Amer) > 60 Est GFR (Non-Af Amer) > 60 Random Glucose 118 H Calcium 9.0 Phosphorus 3.3 Magnesium 2.4 H Total Bilirubin 0.5 AST 93 H D ALT 104 H Alkaline Phosphatase 42 Troponin I 0.39 H* Total Protein 6.5 Albumin 4.0 Globulin 2.5 Albumin/Globulin Ratio 1.6 Triglycerides Cholesterol LDL Cholesterol Direct HDL Cholesterol Procalcitonin Arterial Blood Potassium Venous Blood Potassium 12/25/16 12/25/16 12/25/16 06:00 06:10 07:20 WBC RBC Hgb Hct MCV MCH MCHC RDW Plt Count MPV Gran % Lymph % (Auto) [place] % (Auto) Eos % (Auto) Baso % (Auto) Gran # Lymph # [place] # Eos # Baso # Neutrophils % (Manual) Band Neutrophils % Lymphocytes % (Manual) Monocytes % (Manual) Platelet Evaluation Large Platelets Giant Platelets PT 13.2 H INR 1.20 H pCO2 38 pO2 114.0 H HCO3 22.5 ABG pH 7.38 ABG Total CO2 23.7 ABG O2 Saturation 98.8 H ABG Base Excess -2.3 L ABG Potassium 3.7 VBG pH VBG pCO2 VBG HCO3 VBG Total CO2 VBG O2 Sat (Calc) VBG Base Excess VBG Potassium Glucose 113 H Lactate 3.2 H FiO2 100.0 Sodium 141.0 Potassium Chloride 111.0 H Carbon Dioxide Anion Gap BUN Creatinine Est GFR ( Amer) Est GFR (Non-Af Amer) Random Glucose Calcium Phosphorus Magnesium Total Bilirubin AST ALT Alkaline Phosphatase Troponin I Total Protein Albumin Globulin Albumin/Globulin Ratio Triglycerides 72 Cholesterol 126 L LDL Cholesterol Direct 59 HDL Cholesterol 51 Procalcitonin Arterial Blood Potassium 3.7 Venous Blood Potassium 12/25/16 11:00 WBC RBC Hgb Hct MCV MCH MCHC RDW Plt Count MPV Gran % Lymph % (Auto) [place] % (Auto) Eos % (Auto) Baso % (Auto) Gran # Lymph # [place] # Eos # Baso # Neutrophils % (Manual) Band Neutrophils % Lymphocytes % (Manual) Monocytes % (Manual) Platelet Evaluation Large Platelets Giant Platelets PT INR pCO2 pO2 100 H HCO3 ABG pH ABG Total CO2 ABG O2 Saturation ABG Base Excess ABG Potassium VBG pH 7.38 VBG pCO2 46.0 VBG HCO3 27.2 VBG Total CO2 28.6 H VBG O2 Sat (Calc) 98.8 H VBG Base Excess 1.5 VBG Potassium 4.1 Glucose 149 H Lactate 3.1 H FiO2 21.0 Sodium 138.0 Potassium Chloride 104.0 Carbon Dioxide Anion Gap BUN Creatinine Est GFR ( Amer) Est GFR (Non-Af Amer) Random Glucose Calcium Phosphorus Magnesium Total Bilirubin AST ALT Alkaline Phosphatase Troponin I Total Protein Albumin Globulin Albumin/Globulin Ratio Triglycerides Cholesterol LDL Cholesterol Direct HDL Cholesterol Procalcitonin Arterial Blood Potassium Venous Blood Potassium 4.1 Assessment & Plan - Assessment and Plan (Free Text) Assessment: Jorge Alberto Cast is a 36M w/ hx of polysubstance abuse, asthma who presented [place] [facility] [place] probable heroin overdose. He is s/p intubation for VDRF. He was found to have coffee ground emesis via OG with stable hemoglobin and vitals 1. Coffee-ground emesis likely 2/2 traumatic ET insertion vs old GI bleed, not actively bleeding 2. VDRF 3. Polysubstance abuse Plan: -no indication for GI intervention at this time -continue to monitor vitals -Continue IV Protonix 40mg IV BID -keep hgb > 9 -positive troponins, can start ASA from GI standpoint -keep OG on low intermittent suction -check h/H q 24 hrs -s/p central line -cross and match D/W Dr. Blakely <Reddy QUEVEDO,Mina - Last Filed: 12/25/16 15:58> Meds - Medications Medications: Current Medications Albuterol/Ipratropium (Duoneb 3 Mg/0.5 Mg (3 Ml) Ud) 3 ml IH [id number] PRN PRN Reason: Shortness of Breath Last Admin: 12/25/16 13:39 Dose: 3 ml Vancomycin HCl (Vancomycin 1gm) 1 gm in 250 mls @ 167 mls/hr IVPB DAILY SILVERIO PRN Reason: Protocol Last Admin: 12/25/16 09:09 Dose: 167 mls/hr Piperacillin Sod/Tazobactam Sod (Zosyn 2.25 Gm In 0.9% 100 Ml) 2.25 gm in 100 mls @ 100 mls/hr IVPB Q6 SILVERIO PRN Reason: Protocol Stop: 12/31/16 18:01 Last Admin: 12/25/16 11:16 Dose: 100 mls/hr Sodium Chloride (Sodium Chloride 0.9%) 1,000 mls @ 100 mls/hr IV .Q10H SILVERIO Last Admin: 12/25/16 09:11 Dose: 100 mls/hr Lorazepam (Ativan) 2 mg IVP ONCE PRN; Protocol PRN Reason: Agitation Last Admin: 12/24/16 16:45 Dose: 2 mg Methylprednisolone (Solu-Medrol) 40 mg IVP Q8H SILVERIO Last Admin: 12/25/16 14:15 Dose: 40 mg Pantoprazole Sodium (Protonix Inj) 40 mg IVP Q12 SILVERIO Last Admin: 12/25/16 09:09 Dose: 40 mg Results - Vital Signs Recent Vital Signs: Last Vital Signs Temp 98 F 12/25/16 12:00 Pulse 105 H 12/25/16 14:00 Resp 23 12/25/16 14:00 BP 140/98 H 12/25/16 13:00 Pulse Ox 95 12/25/16 13:00 - Labs Result Diagrams: 12/25/16 06:00 12/25/16 06:00 Labs: Laboratory Results - last 24 hr 12/24/16 12/24/16 12/24/16 14:00 18:30 18:30 WBC 17.2 H RBC 4.83 Hgb 15.4 Hct 45.7 MCV 94.6 D MCH 31.9 MCHC 33.7 RDW 12.7 Plt Count 210 MPV 11.4 H Gran % 93.2 H Lymph % (Auto) 3.9 L [place] % (Auto) 2.8 Eos % (Auto) 0.0 L Baso % (Auto) 0.1 Gran # 16.06 H Lymph # 0.7 L [place] # 0.5 Eos # 0.0 Baso # 0.01 Neutrophils % (Manual) 86 H Band Neutrophils % 5 H Lymphocytes % (Manual) 3 L Monocytes % (Manual) 6 Platelet Evaluation Normal Large Platelets Present Giant Platelets Present PT INR pCO2 pO2 HCO3 ABG pH ABG Total CO2 ABG O2 Saturation ABG Base Excess ABG Potassium VBG pH VBG pCO2 VBG HCO3 VBG Total CO2 VBG O2 Sat (Calc) VBG Base Excess VBG Potassium Glucose Lactate FiO2 Sodium Potassium Chloride Carbon Dioxide Anion Gap BUN Creatinine Est GFR ( Amer) Est GFR (Non-Af Amer) Random Glucose Calcium Phosphorus Magnesium Total Bilirubin AST ALT Alkaline Phosphatase Troponin I 0.37 H* D Total Protein Albumin Globulin Albumin/Globulin Ratio Triglycerides Cholesterol LDL Cholesterol Direct HDL Cholesterol Procalcitonin 0.78 H Arterial Blood Potassium Venous Blood Potassium 12/25/16 12/25/16 12/25/16 01:00 06:00 06:00 WBC 13.5 H D RBC 4.56 Hgb 14.4 Hct 42.9 MCV 94.1 MCH 31.6 MCHC 33.6 RDW 12.9 Plt Count 199 MPV 11.0 Gran % 93.8 H Lymph % (Auto) 3.6 L [place] % (Auto) 2.6 Eos % (Auto) 0.0 L Baso % (Auto) 0.0 Gran # 12.70 H Lymph # 0.5 L [place] # 0.4 Eos # 0.0 Baso # 0.00 Neutrophils % (Manual) Band Neutrophils % Lymphocytes % (Manual) Monocytes % (Manual) Platelet Evaluation Large Platelets Giant Platelets PT INR pCO2 pO2 HCO3 ABG pH ABG Total CO2 ABG O2 Saturation ABG Base Excess ABG Potassium VBG pH VBG pCO2 VBG HCO3 VBG Total CO2 VBG O2 Sat (Calc) VBG Base Excess VBG Potassium Glucose Lactate FiO2 Sodium 142 Potassium 4.4 Chloride 105 Carbon Dioxide 29 Anion Gap 12 BUN 29 H Creatinine 1.1 Est GFR ( Amer) > 60 Est GFR (Non-Af Amer) > 60 Random Glucose 118 H Calcium 9.0 Phosphorus 3.3 Magnesium 2.4 H Total Bilirubin 0.5 AST 93 H D ALT 104 H Alkaline Phosphatase 42 Troponin I 0.39 H* Total Protein 6.5 Albumin 4.0 Globulin 2.5 Albumin/Globulin Ratio 1.6 Triglycerides Cholesterol LDL Cholesterol Direct HDL Cholesterol Procalcitonin Arterial Blood Potassium Venous Blood Potassium 12/25/16 12/25/16 12/25/16 06:00 06:10 07:20 WBC RBC Hgb Hct MCV MCH MCHC RDW Plt Count MPV Gran % Lymph % (Auto) [place] % (Auto) Eos % (Auto) Baso % (Auto) Gran # Lymph # [place] # Eos # Baso # Neutrophils % (Manual) Band Neutrophils % Lymphocytes % (Manual) Monocytes % (Manual) Platelet Evaluation Large Platelets Giant Platelets PT 13.2 H INR 1.20 H pCO2 38 pO2 114.0 H HCO3 22.5 ABG pH 7.38 ABG Total CO2 23.7 ABG O2 Saturation 98.8 H ABG Base Excess -2.3 L ABG Potassium 3.7 VBG pH VBG pCO2 VBG HCO3 VBG Total CO2 VBG O2 Sat (Calc) VBG Base Excess VBG Potassium Glucose 113 H Lactate 3.2 H FiO2 100.0 Sodium 141.0 Potassium Chloride 111.0 H Carbon Dioxide Anion Gap BUN Creatinine Est GFR ( Amer) Est GFR (Non-Af Amer) Random Glucose Calcium Phosphorus Magnesium Total Bilirubin AST ALT Alkaline Phosphatase Troponin I Total Protein Albumin Globulin Albumin/Globulin Ratio Triglycerides 72 Cholesterol 126 L LDL Cholesterol Direct 59 HDL Cholesterol 51 Procalcitonin Arterial Blood Potassium 3.7 Venous Blood Potassium 12/25/16 11:00 WBC RBC Hgb Hct MCV MCH MCHC RDW Plt Count MPV Gran % Lymph % (Auto) [place] % (Auto) Eos % (Auto) Baso % (Auto) Gran # Lymph # [place] # Eos # Baso # Neutrophils % (Manual) Band Neutrophils % Lymphocytes % (Manual) Monocytes % (Manual) Platelet Evaluation Large Platelets Giant Platelets PT INR pCO2 pO2 100 H HCO3 ABG pH ABG Total CO2 ABG O2 Saturation ABG Base Excess ABG Potassium VBG pH 7.38 VBG pCO2 46.0 VBG HCO3 27.2 VBG Total CO2 28.6 H VBG O2 Sat (Calc) 98.8 H VBG Base Excess 1.5 VBG Potassium 4.1 Glucose 149 H Lactate 3.1 H FiO2 21.0 Sodium 138.0 Potassium Chloride 104.0 Carbon Dioxide Anion Gap BUN Creatinine Est GFR ( Amer) Est GFR (Non-Af Amer) Random Glucose Calcium Phosphorus Magnesium Total Bilirubin AST ALT Alkaline Phosphatase Troponin I Total Protein Albumin Globulin Albumin/Globulin Ratio Triglycerides Cholesterol LDL Cholesterol Direct HDL Cholesterol Procalcitonin Arterial Blood Potassium Venous Blood Potassium 4.1 Attending/Attestation - Attestation I have personally seen and examined this patient.: Yes I have fully participated in the care of the patient.: Yes I have reviewed all pertinent clinical information: Yes Notes (Text): 12/25/16 15:41 Patient seen with GI fellow early am in MICU. He was intubated and sedated at time of exam. girlfriend at bedside. History extracted from chart and GF and staff. This is a 36 yr old M with history of polysubstance abuse, recent heroin abuse, asthma who was found unresponsive and intubated in the field. He was found to have coffee ground emesis via OG with stable hemoglobin and vitals. GI consulted for the same. NGT noted with bilious secretions. hb stable. No melena or hematemesis. Likely traumatic intubation. AST/ALT elevated either due to fall and mild rhabdo which is downtrending or ischemic hepatopathy. Hepatitis serologies pending. Multiple tattoos on body on exam but no s/s of end stage liver disease- nos pider angiomata, no coagulopathy ro splenomegaly or low platelets. Trend daily Hct and continue PPI as you are doing. No urgent indication for endoscopic exam. rest of plan as per MICU. Thank you for letting us participate in the care of your patient
[2016-12-25 17:30] LABS: VENOUS BLOOD GAS BASE EXCESS 5.3 mmol/L (0.0-2.0); VENOUS BLOOD PH 7.41 (7.32-7.43)
[2016-12-25] MEDS: Phenol Topical 1.4% Throat Spray (180 ml) MT PRN (21:29)
[2016-12-25 21:47] LABS: VENOUS BLOOD GAS BASE EXCESS 5.3 mmol/L (0.0-2.0); VENOUS BLOOD PH 7.41 (7.32-7.43)
[2016-12-26] MEDS: Piperacillin/Tazobact 2.25gm 2.25 GM/100 ML BAG IVPB SCH ×5 (00:02→23:12)
[2016-12-26 01:49] LABS: VENOUS BLOOD PH 7.37 (7.32-7.43)
[2016-12-26] MEDS: Albuterol-Ipratrop 3 mg / 0.5 (3 ml) UD IH SCH ×2 (04:51→22:00)
[2016-12-26] MEDS: Sodium Chloride 0.9% 1,000 ML IV SCH (05:02)
[2016-12-26] MEDS: MethylPREDNISolone 40 mg Vial IVP SCH ×4 (05:15→21:23)
[2016-12-26 06:51] LABS: GRAN # 12.28 (1.4-6.5); HEMATOCRIT 42.1 % (42.0-52.0); LYMPH # 0.6 (1.2-3.4); LYMPH % 4.4 % (22.0-35.0); MEAN CELL VOLUME 93.8 fl (80.0-105.0); MEAN PLATELET VOLUME 11.2 fl (7.0-11.0); MONO # 0.6 (0.1-0.6); MONO % 4.6 % (1.0-6.0); WHITE BLOOD COUNT 13.5 10^3/ul (4.5-11.0)
[2016-12-26 07:24] LABS: ALB/GLOB RATIO 1.4 (1.1-1.8); ALKALINE PHOSPHATASE 40 U/L (38-126); ALT/SGPT 86 U/L (7-56); AST/SGOT 75 U/L (17-59); BILIRUBIN,TOTAL 0.6 mg/dL (0.2-1.3); BLOOD UREA NITROGEN 18 mg/dL (7-21); CALCIUM 9.4 mg/dL (8.4-10.5); CARBON DIOXIDE 31 mmol/L (21-33); CHLORIDE 105 mmol/L (98-107); GFR AFRICAN-AMERICAN > 60; GLUCOSE,RANDOM 113 mg/dL (70-110); MAGNESIUM 2.4 mg/dL (1.7-2.2); PHOSPHOROUS 2.6 mg/dL (2.5-4.5); POTASSIUM 4.5 mmol/L (3.6-5.0); SODIUM 141 mmol/L (132-148); TOTAL PROTEIN 6.6 g/dL (5.8-8.3)
--- NOTE | 2016-12-26 09:00 | CARD ---
APPROVED REPORT EKG Measurement Heart [id number] <Conclusion> Normal sinus rhythm Normal ECG
[2016-12-26] MEDS: Vancomycin 1gm in NS 250ml 1 GM/250 ML BAG IVPB SCH (09:08)
--- NOTE | 2016-12-26 09:57 | CON ---
DATE: 12/25/2016 HISTORY OF PRESENT ILLNESS: The patient is a 36-year-old male with a history of untreated depression, possibly situational, possibly related to drug use, use of Benadryl if he get high, pain killer abuse as well as recent heroin abuse and marijuana use, no prior psychiatric consultations or suicide attempts or psychiatric medication trials, who was brought in by EMS after his girlfriend called after finding him unresponsive with froth around his mouth, around his lips and nose and labored breathing. Apparently by EMS, he was found to be unresponsive with pinpoint pupils, shallow breathing and needed to be intubated in the field and brought to the hospital. Apparently, the patient was referred to medical patient's resultant other medical issues related to presentation. The patient self extubated this morning and had indicated a wish to be discharged against medical advice. Psychiatry was called to evaluate the patient for psychiatric stability. I intubated the patient as he is initially irritable and demanding; however, he calmed down and was more cooperative during the course of our conversation. The patient's girlfriend Emelia was also present at the time of most of our interview. The patient currently is oriented to month, location, circumstances, and year. He is unaware of what happened unless his presentation indicated he took about 12 Benadryl, smoked some marijuana with possibly as well as to history of asthma combined to cause this presentation. The patient does have a history of abusing Benadryl drug in the past. Prior records review indicated that the patient's girlfriend reported that the patient does have a history of abusing pain killers and restarted using including heroin, Percocet and possibly recently started using heroin intranasally; however, UDS was positive only for marijuana and BAL was less than 10. I obtained collateral from the patient's girlfriend Emelia who is at bedside whose number is [phone] as well as the patient's brother Raffi, , who I contacted by phone. Neither of them believed that the patient's presentation was due to overdose. The patient indicates that "I was just an idiot." The patient's girlfriend Emelia indicates that she and her boyfriend have been off and on for about two years and he has been living with his mother nonetheless they had made plans around 5:40 in the morning to see each other and they are going to get together romantically later that day. The patient's girlfriend showed me the text in which the patient had asked girlfriend toward certain item of for him in this respect. However later on through the text, it became clear that girlfriend was unable to reach the patient and kept texting him and calling him without any response, so she came over to his mom's home and pounded on the door around 8:30 a.m., however, nobody answered the door. She became very alarmed and she called 911 and noted that through the window she saw him unresponsive with froth around his mouth and with labored breathing, which caused her to call and became more alarmed. She does report that they have been having difficulty due to their separation, but she adamantly does not feel that this was an overdose. I spoke to the patient's brother Raffi who also adamantly does not feel that this was an overdose. Both are close to the patient and both of them denied that the patient had any prior history of this type of presentation. The patient also denies this is an overdose, he is happy to be alive. He denies depression and reports that presentation was likely due to combination of perhaps smoking marijuana late with unknown substance and taking 12 Benadryl and his history of asthma. Regarding wanting to leave against medical advice, this provider and girlfriend strongly discouraged the patient from doing this stressing the seriousness of this presentation and nothing being allowed. They also reported to him that though he wants to return back to work, it is worth staying in the hospital for further medical stabilization concerning the seriousness of the symptoms when he first arrived especially for the sake of his 6 children. The patient changed his mind and indicated he agreed to further treatment on the unit to ensure his health. The above process was generally coherent consistent. The patient jokes inappropriately at times, did not appear to be hopeless or suicidal. His insight and judgment are considered to be fair considering he change his mind about leaving. PSYCHIATRIC HISTORY: The patient denies any psychiatric outpatient or inpatient followup. Denies any history of suicide attempt. Denies any history of psychiatric medication trials. SOCIAL HISTORY: The patient was born in [place]. He is single, however, he has longtime girlfriend who is the mother of his 6 children. He currently lives with his mom because he has been with his girlfriend for the last 2 years with an on and off again relationship. 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 The patient has a 16-year-old, 15-year-old, two 12-year-old, 11-year-old, 8-year-old child, who are in good health. The patient has a history of using Benadryl recreationally as well as Percocet though currently the UDS is only positive for marijuana. The patient also smokes weed. Denies any alcohol dependency issues. PHYSICAL EXAMINATION VITAL SIGNS: Reviewed by this provider. LABORATORY DATA: The patient's labs are also reviewed by this provider. MEDICATIONS: There are no relevant psychiatric medications. The patient did receive 2 mg of Ativan IV at 4:45 a.m. this morning likely when he self extubated. IMPRESSION: Substance use disorder including Benadryl, cannabis, history of opiate use disorder, and accidental overdose. PLAN: At this time, the patient is willing to stay in the hospital to be medically stabilized. When the patient is psychiatrically cleared and when he is medically cleared, he will be discharged as the patient's girlfriend Emelia, , and brother, , named Raffi, who are closer to the patient, both confirmed that this was not a suicide attempt and they state it is safe for the patient to go home and the patient does not have any prior history of such behaviors and has not been reporting any suicidal thoughts prior to the presentation. Psychiatry continued to follow up to ensure he has continued stability. William Grace MD
[2016-12-26] MEDS: Albuterol-Ipratrop 3 mg / 0.5 (3 ml) UD IH PRN (10:29)
--- NOTE | 2016-12-26 12:05 | CP.PCM.PN ---
Subjective - Date & Time of Evaluation Date of Evaluation: 12/26/16 Time of Evaluation: 11:00 - Subjective Subjective: Patient is feeling better, no fevers overnight, less cough, no headache, no nausea or vomiting. Objective - Vital Signs/Intake and Output Vital Signs (last 24 hours): Temp Pulse Resp BP Pulse Ox 98.7 F 118 H 18 112/61 95 12/26/16 06:00 12/26/16 06:00 12/26/16 06:00 12/26/16 06:00 12/26/16 06:00 Intake and Output: 12/26/16 12/26/16 06:59 18:59 Intake Total 1500 480 Balance 1500 480 - Medications Medications: Current Medications Acetaminophen (Tylenol 325mg Tab) 650 mg PO Q6H PRN PRN Reason: Pain, Mild (1-3) Last Admin: 12/26/16 09:08 Dose: 650 mg Albuterol/Ipratropium (Duoneb 3 Mg/0.5 Mg (3 Ml) Ud) 3 ml IH [id number] PRN PRN Reason: Shortness of Breath Last Admin: 12/25/16 13:39 Dose: 3 ml Aspirin (Aspirin Chewable) 81 mg PO DAILY [facility] Last Admin: 12/26/16 09:08 Dose: 81 mg Vancomycin HCl (Vancomycin 1gm) 1 gm in 250 mls @ 167 mls/hr IVPB DAILY [facility] PRN Reason: Protocol Last Admin: 12/26/16 09:08 Dose: 167 mls/hr Piperacillin Sod/Tazobactam Sod (Zosyn 2.25 Gm In 0.9% 100 Ml) 2.25 gm in 100 mls @ 100 mls/hr IVPB Q6 [facility] PRN Reason: Protocol Stop: 12/31/16 18:01 Last Admin: 12/26/16 05:15 Dose: 100 mls/hr Sodium Chloride (Sodium Chloride 0.9%) 1,000 mls @ 100 mls/hr IV .Q10H [facility] Last Admin: 12/26/16 05:02 Dose: Not Given Lorazepam (Ativan) 2 mg IVP ONCE PRN; Protocol PRN Reason: Agitation Last Admin: 12/24/16 16:45 Dose: 2 mg Methylprednisolone (Solu-Medrol) 40 mg IVP Q8H [facility] Last Admin: 12/26/16 05:15 Dose: 40 mg Pantoprazole Sodium (Protonix Inj) 40 mg IVP Q12 [facility] Last Admin: 12/26/16 09:08 Dose: 40 mg Phenol/Menthol (Phenaseptic 1.4% Throat [place]) 1 ml MT Q2H PRN PRN Reason: Sore Throat Last Admin: 12/25/16 21:29 Dose: 1 ml - Labs Labs: 12/26/16 06:30 12/26/16 06:30 PT 13.2 SECONDS (9.4-12.5) H 12/25/16 06:00 INR 1.20 (0.93-1.08) H 12/25/16 06:00 APTT 32.7 Seconds (25.1-36.5) 12/24/16 10:30 - Constitutional Appears: Non-toxic, No Acute Distress - Head Exam Head Exam: NORMAL INSPECTION - ENT Exam ENT Exam: Mucous Membranes Moist - Neck Exam Neck Exam: absent: Lymphadenopathy, Meningismus - Respiratory Exam Respiratory Exam: Decreased Breath Sounds - Cardiovascular Exam Cardiovascular Exam: +S1, +S2 - GI/Abdominal Exam GI & Abdominal Exam: Soft. absent: Tenderness Assessment and Plan - Assessment and Plan (Free Text) Plan: Assessment Systemic Inflammatory Response Syndrome, consider due to acute encephalopathy etiology to be determined R/O seizures, R/O drug-induced R/O aspiration pneumonia asthma history of sciatica history of drug use Plan on Vancomycin and zosyn day 2; cultures have been negative; PCT is elevated but may be elevated also if patient had a seizure; may be switched to PO augmentin for another 5-7 days when ready for discharge reviewed Neuro evaluation Rapid HIV is negative
--- NOTE | 2016-12-26 12:21 | CARD ---
APPROVED REPORT EKG Measurement Heart [id number] <Conclusion> Sinus rhythm with marked sinus arrhythmia Otherwise normal ECG
--- NOTE | 2016-12-26 14:09 | CP.PCM.PN ---
Subjective - Date & Time of Evaluation Date of Evaluation: 12/26/16 Time of Evaluation: 14:05 - Subjective Subjective: Medicine Progress Note: Pt seen and examined at bedside. Pt denied any acute overnight events. Pt states that breathing is improved. Patients admits to taking 10 benadryl pills prior to passing out. Pt denied CP, SOB, nausea, vomiting, diarrhea, constipation, abdominal pain, fever, chills, DIAZ, or dizziness. Objective - Vital Signs/Intake and Output Vital Signs (last 24 hours): Temp Pulse Resp BP Pulse Ox 98.8 F 77 21 135/77 95 12/26/16 12:00 12/26/16 12:00 12/26/16 12:00 12/26/16 12:00 12/26/16 06:00 Intake and Output: 12/26/16 12/26/16 06:59 18:59 Intake Total 1500 480 Balance 1500 480 - Medications Medications: Current Medications Acetaminophen (Tylenol 325mg Tab) 650 mg PO Q6H PRN PRN Reason: Pain, Mild (1-3) Last Admin: 12/26/16 09:08 Dose: 650 mg Albuterol/Ipratropium (Duoneb 3 Mg/0.5 Mg (3 Ml) Ud) 3 ml IH [id number] PRN PRN Reason: Shortness of Breath Last Admin: 12/26/16 10:29 Dose: 3 ml Aspirin (Aspirin Chewable) 81 mg PO DAILY [facility] OF [facility] Last Admin: 12/26/16 09:08 Dose: 81 mg Vancomycin HCl (Vancomycin 1gm) 1 gm in 250 mls @ 167 mls/hr IVPB DAILY [facility] PRN Reason: Protocol Last Admin: 12/26/16 09:08 Dose: 167 mls/hr Piperacillin Sod/Tazobactam Sod (Zosyn 2.25 Gm In 0.9% 100 Ml) 2.25 gm in 100 mls @ 100 mls/hr IVPB Q6 [facility] PRN Reason: Protocol Stop: 12/31/16 18:01 Last Admin: 12/26/16 12:05 Dose: 100 mls/hr Sodium Chloride (Sodium Chloride 0.9%) 1,000 mls @ 100 mls/hr IV .Q10H [facility] Last Admin: 12/26/16 05:02 Dose: Not Given Lisinopril (Zestril) 5 mg PO DAILY [facility] Lorazepam (Ativan) 2 mg IVP ONCE PRN; Protocol PRN Reason: Agitation Last Admin: 12/24/16 16:45 Dose: 2 mg Methylprednisolone (Solu-Medrol) 40 mg IVP Q8H [facility] Last Admin: 12/26/16 13:40 Dose: 40 mg Pantoprazole Sodium (Protonix Inj) 40 mg IVP Q12 [facility] Last Admin: 12/26/16 09:08 Dose: 40 mg Phenol/Menthol (Phenaseptic 1.4% Throat [place]) 1 ml MT Q2H PRN PRN Reason: Sore Throat Last Admin: 12/25/16 21:29 Dose: 1 ml - Labs Labs: 12/26/16 06:30 12/26/16 06:30 PT 13.2 SECONDS (9.4-12.5) H 12/25/16 06:00 INR 1.20 (0.93-1.08) H 12/25/16 06:00 APTT 32.7 Seconds (25.1-36.5) 12/24/16 10:30 - Constitutional Appears: No Acute Distress - Head Exam Head Exam: ATRAUMATIC, NORMAL INSPECTION, NORMOCEPHALIC - Eye Exam Eye Exam: EOMI, Normal appearance, PERRL - ENT Exam ENT Exam: Mucous Membranes Moist, Normal Exam - Neck Exam Neck Exam: Full ROM, Normal Inspection. absent: Lymphadenopathy, Tenderness, Thyromegaly - Respiratory Exam Respiratory Exam: Wheezes (b/l, but improved). absent: Accessory Muscle Use, Rales, Rhonchi, Respiratory Distress - Cardiovascular Exam Cardiovascular Exam: RRR, +S1, +S2. absent: Diastolic murmur, Gallop, Rubs, Murmur - GI/Abdominal Exam GI & Abdominal Exam: Soft, Normal Bowel Sounds. absent: Distended, Guarding, Tenderness, Mass, Rebound - Extremities Exam Extremities Exam: Normal Inspection - Back Exam Back Exam: NORMAL INSPECTION - Neurological Exam Neurological Exam: Alert, Awake, Oriented x3 - Psychiatric Exam Psychiatric exam: Normal Affect, Normal Mood - Skin Skin Exam: Dry, Intact, Normal Color, Warm Assessment and Plan - Assessment and Plan (Free Text) Assessment: 36 year old male PMHx asthma, sciatica, and drug use was intubated after being found unresponsive by at home. Patient was admitted to ICU for evaluation due to AMS, respiratory failure, SIRS, and hematemesis. Pt currently self-extubated and AMS likely due to asthma exacerbation vs overdose. Plan: 1. Respiratory Failure likely 2/2 asthma exacerbation - Self-extubated - VBG on admission pH: 6.95, pCO2: 133, HCO3: 29.2, Total CO2: 33.3 - ABG showed hypercapnic respiratory acidosis on admission, which has resolved on repeat ABC - CXR showed heterogeneous opacities in the lungs more prominent at the perihilar region. Suspicion for partial atelectasis of the left lung associated with mediastinal shift to the left. Stomach is distended. - Duoneb 3ml inh q6 - Solumedrol tapered to 30mg ivp q8 2. AMS, resolved - drug overdose (benadryl, cannabis, opioid) vs asthma exacerbation - Head CT showed questionable 4mm focus on increased attenuation at the left frontal lobe peripherally. Possibility of a small hemorrhage cannot be excluded - CT cervical spine showed no evidence of acute fracture of subluxation - Brain MRI showed no evidence of acute infarction or acute pathology in the brain - Head MRA was unremarkable - UDS: + cannabinoids only - Neurology consulted - Neurosurgery consulted - Psych consulted 3. Cardiomyopathy - Troponin 0.12, 0.37, 0.39 - EKG showed sinus tachycardia - Echo showed LVEF of 26.9% - Cont ASA, Lisinopril - Cardio consulted 4. SIRS, resolved - ID consulted Switch to PO Augmentin 5-7 days upon discharge - Blood cultures negative after 24 hours - Urine cultures negative - Sputum cultures negative - WBC downtrending, current elevation likely due to steroids - Procalcitonin 3.84 - HIV negative - Zosyn and Vancomycin continued 5. Coffee-ground Emesis likely 2/2 traumatic ETT, resolved - GI consulted No intervention Cont Protonix 40mg ivp q12 Ok to start ASA 6. Transaminitis - LFT's stable - Acute Hep panel negative - Abdominal US showed heterogeneous diffuse increased echogencity of the liver suggestive of liver steatosis or parenchymal liver disease. Slight intrahepatic biliary ductal dilatation. No evidence of cholelithiaisis or cholecystitis 7. Acute Kidney Injury, resolved - BUN/Cr 29/1.1 - NS @ 100cc/hr GI ppx: Protonix DVT ppx: SCDs Diet: Soft diet Fluids: NS @ 100cc/hr Precautions: Aspiration, Seizure Pt seen and discussed in detail with Dr. Carpenter. Leon Briones, PGY1
[2016-12-26] MEDS: Benzocaine/Menthol (Cepacol) Lozenge MT PRN (14:17)
--- NOTE | 2016-12-26 16:12 | CP.PCM.PCO ---
Physician Communication Note - Physician Communication Note Physician Communication Note: pt will be f/u tomorrow
[2016-12-27] MEDS: Piperacillin/Tazobact 2.25gm 2.25 GM/100 ML BAG IVPB SCH ×3 (06:12→17:04)
[2016-12-27] MEDS: MethylPREDNISolone 40 mg Vial IVP SCH ×2 (06:13→13:58)
[2016-12-27 06:55] LABS: GRAN # 11.78 (1.4-6.5); GRAN % 86.7 % (50.0-68.0); HEMATOCRIT 42.5 % (42.0-52.0); MEAN CELL VOLUME 92.6 fl (80.0-105.0); MEAN CORPUSCULAR HEMOGLOBIN 31.2 pg (25.0-35.0); MEAN CORPUSCULAR HGB CONC 33.6 g/dl (31.0-37.0); MEAN PLATELET VOLUME 11.3 fl (7.0-11.0); MONO # 0.9 (0.1-0.6); MONO % 6.3 % (1.0-6.0); RED CELL DISTRIBUTION WIDTH 12.9 % (11.5-14.5); WHITE BLOOD COUNT 13.6 10^3/ul (4.5-11.0)
[2016-12-27 07:06] LABS: ALB/GLOB RATIO 1.6 (1.1-1.8); ALKALINE PHOSPHATASE 43 U/L (38-126); ALT/SGPT 97 U/L (7-56); AST/SGOT 54 U/L (17-59); BLOOD UREA NITROGEN 21 mg/dL (7-21); CALCIUM 9.3 mg/dL (8.4-10.5); CARBON DIOXIDE 30 mmol/L (21-33); CHLORIDE 105 mmol/L (95-110); GFR AFRICAN-AMERICAN > 60; GLUCOSE,RANDOM 98 mg/dL (70-110); MAGNESIUM 2.1 mg/dL (1.7-2.2); PHOSPHOROUS 4.1 mg/dL (2.5-4.5); POTASSIUM 4.2 mmol/L (3.6-5.0); SODIUM 140 mmol/L (132-148); TOTAL PROTEIN 6.6 g/dL (5.8-8.3)
[2016-12-27 07:19] LABS: BILIRUBIN,TOTAL 0.7 mg/dL (0.2-1.3)
--- NOTE | 2016-12-27 10:38 | CP.PCM.CON ---
<Hallie Johnson - Last Filed: 12/27/16 10:21> History of Present Illness - History of Present Illness History of Present Illness: PRESENTATION: Patient is a 36year old male seen today laying in his hospital bed. He indicates he is waiting to be discharged, that he feels "great" and is anxious to get back to his job. He was admitted to the hospital unresponsive, and the collateral information provided included that client had been recently using heroin. His drug screen was found to be only positive for marijuana. He today denies use of any substance other than "occasional" use of cannabis. He has poorly controlled asthma which he feels is why he ended up in the hospital. He has a supportive family. MENTAL STATUS EXAM: Patient is alert and oriented x3, speech rate and volume are within normal limits, behavior is overtly cooperative. His mood is euthymic , affect is full, thoughts are goal directed. He denies being suicidal or homicidal, denies the presence of hallucinations, delusions, or paranoia. His concentration, appetite and sleep are reported as normal. PLAN: Patient is requesting discharge which will be determined medically. He is cleared psychiatrically, and denies the need for any psychiatric follow up so no referrals were provided. Will follow up while patient is in hospital. Past Patient History - Tetanus Immunizations Tetanus Immunization: Up to Date - Past Social History Smoking Status: Never Smoked - CARDIAC Hx Cardiac Disorders: No - PULMONARY Hx Asthma: Yes - NEUROLOGICAL Hx Neurological Disorder: No - HEENT Hx HEENT Problems: No - RENAL Hx Chronic Kidney Disease: No - ENDOCRINE/METABOLIC Hx Endocrine Disorders: No - HEMATOLOGICAL/ONCOLOGICAL Hx Blood Disorders: No - INTEGUMENTARY Hx Dermatological Problems: No - MUSCULOSKELETAL/RHEUMATOLOGICAL Hx Musculoskeletal Disorders: No Hx Falls: No - GASTROINTESTINAL Hx Gastroesophageal Reflux: Yes - GENITOURINARY/GYNECOLOGICAL Hx Genitourinary Disorders: No - PSYCHIATRIC Hx Substance Use: No - SURGICAL HISTORY Hx Surgeries: No - ANESTHESIA Hx Anesthesia: No Meds Allergies/Adverse Reactions: Allergies Allergy/AdvReac Type Severity Reaction Status Date / Time cat dander Allergy RASH Verified 12/24/16 10:25 - Medications Medications: Current Medications Acetaminophen (Tylenol 325mg Tab) 650 mg PO Q6H PRN PRN Reason: Pain, Mild (1-3) Last Admin: 12/26/16 09:08 Dose: 650 mg Albuterol/Ipratropium (Duoneb 3 Mg/0.5 Mg (3 Ml) Ud) 3 ml IH [id number] PRN PRN Reason: Shortness of Breath Last Admin: 12/26/16 10:29 Dose: 3 ml Aspirin (Aspirin Chewable) 81 mg PO DAILY [facility] Last Admin: 12/27/16 09:59 Dose: 81 mg Benzocaine/Menthol (Cepacol Sore Throat) 1 laura MT Q2H PRN PRN Reason: Sore Throat Last Admin: 12/26/16 14:17 Dose: 1 laura Piperacillin Sod/Tazobactam Sod (Zosyn 2.25 Gm In 0.9% 100 Ml) 2.25 gm in 100 mls @ 100 mls/hr IVPB Q6 [facility] PRN Reason: Protocol Stop: 12/31/16 18:01 Last Admin: 12/27/16 06:12 Dose: 100 mls/hr Lisinopril (Zestril) 5 mg PO DAILY [facility] Last Admin: 12/27/16 10:01 Dose: 5 mg Lorazepam (Ativan) 2 mg IVP ONCE PRN; Protocol PRN Reason: Agitation Last Admin: 12/24/16 16:45 Dose: 2 mg Methylprednisolone (Solu-Medrol) 30 mg IVP Q8H [facility] Last Admin: 12/27/16 06:13 Dose: 30 mg Pantoprazole Sodium (Protonix Inj) 40 mg IVP Q12 [facility] Last Admin: 12/27/16 09:59 Dose: 40 mg Phenol/Menthol (Phenaseptic 1.4% Throat [place]) 1 ml MT Q2H PRN PRN Reason: Sore Throat Last Admin: 12/25/16 21:29 Dose: 1 ml Results - Vital Signs Recent Vital Signs: Last Vital Signs Temp 97.4 F L 12/27/16 05:52 Pulse 60 12/27/16 10:01 Resp 20 12/27/16 05:52 BP 130/67 12/27/16 10:01 Pulse Ox 96 12/27/16 05:52 - Labs Result Diagrams: 12/27/16 06:25 12/27/16 06:25 Labs: Laboratory Results - last 24 hr 12/25/16 12/26/16 12/27/16 01:00 13:50 06:25 WBC 13.6 H RBC 4.59 Hgb 14.3 Hct 42.5 MCV 92.6 MCH 31.2 MCHC 33.6 RDW 12.9 Plt Count 216 MPV 11.3 H Gran % 86.7 H Lymph % (Auto) 7.0 L [place] % (Auto) 6.3 H Eos % (Auto) 0.0 L Baso % (Auto) 0.0 Gran # 11.78 H Lymph # 1.0 L [place] # 0.9 H Eos # 0.0 Baso # 0.00 Sodium Potassium Chloride Carbon Dioxide Anion Gap BUN Creatinine Est GFR ( Amer) Est GFR (Non-Af Amer) Random Glucose Calcium Phosphorus Magnesium Total Bilirubin AST ALT Alkaline Phosphatase Total Protein Albumin Globulin Albumin/Globulin Ratio TSH 3rd Generation 0.58 HIV 1&2 Ag/Ab, 4th Gen Nonreactive 12/27/16 06:25 WBC RBC Hgb Hct MCV MCH MCHC RDW Plt Count MPV Gran % Lymph % (Auto) [place] % (Auto) Eos % (Auto) Baso % (Auto) Gran # Lymph # [place] # Eos # Baso # Sodium 140 Potassium 4.2 Chloride 105 Carbon Dioxide 30 Anion Gap 9 L BUN 21 Creatinine 0.9 Est GFR ( Amer) > 60 Est GFR (Non-Af Amer) > 60 Random Glucose 98 Calcium 9.3 Phosphorus 4.1 Magnesium 2.1 Total Bilirubin 0.7 AST 54 ALT 97 H Alkaline Phosphatase 43 Total Protein 6.6 Albumin 4.0 Globulin 2.6 Albumin/Globulin Ratio 1.6 TSH 3rd Generation HIV 1&2 Ag/Ab, 4th Gen <Shayy Au - Last Filed: 12/27/16 15:15> History of Present Illness - History of Present Illness History of Present Illness: pt was admitted to the medical floor with AMS psych consult was involved patient was followed up today with a nurse practitioner Alex meds/labs/reports reviewed, spoke to the RN as per report pt was in good behavioral control, no agitation, no signs of depression, no signs of psychosis, pt is compliant with meds, has good appetite and sleep. pt said "I never tried to kill myself, I wanted to make it clear", pt said that he was functioning at his baseline, collaterals from the "mother of my kids", pt never verbalized thoughts of harming self or others. as per note pt denied thoughts of harming self or others at the day of admission. pt has future oriented plans to go back to work. Impression: AMS due to the medical issues which improved Plan: from the psychiatric standpoint pt is not in any imminent danger to self or others pt has supportive family agree with assessment and treatment plan of [facility] I will sing off should you have any questions, give me a call back. Meds - Medications Medications: Current Medications Acetaminophen (Tylenol 325mg Tab) 650 mg PO Q6H PRN PRN Reason: Pain, Mild (1-3) Last Admin: 12/26/16 09:08 Dose: 650 mg Albuterol/Ipratropium (Duoneb 3 Mg/0.5 Mg (3 Ml) Ud) 3 ml IH [id number] PRN PRN Reason: Shortness of Breath Last Admin: 12/27/16 12:01 Dose: 3 ml Aspirin (Aspirin Chewable) 81 mg PO DAILY [facility] Last Admin: 12/27/16 09:59 Dose: 81 mg Benzocaine/Menthol (Cepacol Sore Throat) 1 laura MT Q2H PRN PRN Reason: Sore Throat Last Admin: 12/26/16 14:17 Dose: 1 laura Enoxaparin Sodium (Lovenox) 40 mg SC DAILY [facility] PRN Reason: Protocol Last Admin: 12/27/16 13:57 Dose: 40 mg Piperacillin Sod/Tazobactam Sod (Zosyn 2.25 Gm In 0.9% 100 Ml) 2.25 gm in 100 mls @ 100 mls/hr IVPB Q6 [facility] PRN Reason: Protocol Stop: 12/31/16 18:01 Last Admin: 12/27/16 06:12 Dose: 100 mls/hr Lisinopril (Zestril) 5 mg PO DAILY [facility] Last Admin: 12/27/16 10:01 Dose: 5 mg Lorazepam (Ativan) 2 mg IVP ONCE PRN; Protocol PRN Reason: Agitation Last Admin: 12/24/16 16:45 Dose: 2 mg Methylprednisolone (Solu-Medrol) 30 mg IVP Q8H [facility] Stop: 12/27/16 23:59 Last Admin: 12/27/16 13:58 Dose: 30 mg Methylprednisolone (Medrol) 8 mg PO TID [facility] PRN Reason: Taper Stop: 01/02/17 09:14 Pantoprazole Sodium (Protonix Inj) 40 mg IVP Q12 [facility] Last Admin: 12/27/16 09:59 Dose: 40 mg Phenol/Menthol (Phenaseptic 1.4% Throat [place]) 1 ml MT Q2H PRN PRN Reason: Sore Throat Last Admin: 12/25/16 21:29 Dose: 1 ml Spironolactone (Aldactone) 12.5 mg PO DAILY [facility] Last Admin: 12/27/16 13:57 Dose: 12.5 mg Results - Vital Signs Recent Vital Signs: Last Vital Signs Temp 98.4 F 12/27/16 12:00 Pulse 84 12/27/16 14:00 Resp 20 12/27/16 12:00 BP 158/82 H 12/27/16 12:00 Pulse Ox 96 12/27/16 05:52 - Labs Result Diagrams: 12/27/16 06:25 12/27/16 06:25 Labs: Laboratory Results - last 24 hr 12/27/16 12/27/16 06:25 06:25 WBC 13.6 H RBC 4.59 Hgb 14.3 Hct 42.5 MCV 92.6 MCH 31.2 MCHC 33.6 RDW 12.9 Plt Count 216 MPV 11.3 H Gran % 86.7 H Lymph % (Auto) 7.0 L [place] % (Auto) 6.3 H Eos % (Auto) 0.0 L Baso % (Auto) 0.0 Gran # 11.78 H Lymph # 1.0 L [place] # 0.9 H Eos # 0.0 Baso # 0.00 Sodium 140 Potassium 4.2 Chloride 105 Carbon Dioxide 30 Anion Gap 9 L BUN 21 Creatinine 0.9 Est GFR ( Amer) > 60 Est GFR (Non-Af Amer) > 60 Random Glucose 98 Calcium 9.3 Phosphorus 4.1 Magnesium 2.1 Total Bilirubin 0.7 AST 54 ALT 97 H Alkaline Phosphatase 43 Total Protein 6.6 Albumin 4.0 Globulin 2.6 Albumin/Globulin Ratio 1.6
--- NOTE | 2016-12-27 11:54 | CP.PCM.PN ---
Subjective - Date & Time of Evaluation Date of Evaluation: 12/27/16 Time of Evaluation: 10:40 - Subjective Subjective: Comfortable, no SOB at rest, no fevers overnight, eager to go home. Objective - Vital Signs/Intake and Output Vital Signs (last 24 hours): Temp Pulse Resp BP Pulse Ox 97.4 F L 56 L 20 129/67 96 12/27/16 05:52 12/27/16 05:52 12/27/16 05:52 12/27/16 05:52 12/27/16 05:52 Intake and Output: 12/27/16 12/27/16 06:59 18:59 Intake Total 560 Balance 560 - Medications Medications: Current Medications Acetaminophen (Tylenol 325mg Tab) 650 mg PO Q6H PRN PRN Reason: Pain, Mild (1-3) Last Admin: 12/26/16 09:08 Dose: 650 mg Albuterol/Ipratropium (Duoneb 3 Mg/0.5 Mg (3 Ml) Ud) 3 ml IH [id number] PRN PRN Reason: Shortness of Breath Last Admin: 12/26/16 10:29 Dose: 3 ml Aspirin (Aspirin Chewable) 81 mg PO DAILY [facility] Last Admin: 12/26/16 09:08 Dose: 81 mg Benzocaine/Menthol (Cepacol Sore Throat) 1 laura MT Q2H PRN PRN Reason: Sore Throat Last Admin: 12/26/16 14:17 Dose: 1 laura Vancomycin HCl (Vancomycin 1gm) 1 gm in 250 mls @ 167 mls/hr IVPB DAILY [facility] PRN Reason: Protocol Last Admin: 12/26/16 09:08 Dose: 167 mls/hr Piperacillin Sod/Tazobactam Sod (Zosyn 2.25 Gm In 0.9% 100 Ml) 2.25 gm in 100 mls @ 100 mls/hr IVPB Q6 [facility] PRN Reason: Protocol Stop: 12/31/16 18:01 Last Admin: 12/27/16 06:12 Dose: 100 mls/hr Lisinopril (Zestril) 5 mg PO DAILY [facility] Lorazepam (Ativan) 2 mg IVP ONCE PRN; Protocol PRN Reason: Agitation Last Admin: 12/24/16 16:45 Dose: 2 mg Methylprednisolone (Solu-Medrol) 30 mg IVP Q8H [facility] Last Admin: 12/27/16 06:13 Dose: 30 mg Pantoprazole Sodium (Protonix Inj) 40 mg IVP Q12 [facility] Last Admin: 12/26/16 21:23 Dose: 40 mg Phenol/Menthol (Phenaseptic 1.4% Throat [place]) 1 ml MT Q2H PRN PRN Reason: Sore Throat Last Admin: 12/25/16 21:29 Dose: 1 ml - Labs Labs: 12/27/16 06:25 12/27/16 06:25 PT 13.2 SECONDS (9.4-12.5) H 12/25/16 06:00 INR 1.20 (0.93-1.08) H 12/25/16 06:00 APTT 32.7 Seconds (25.1-36.5) 12/24/16 10:30 - Constitutional Appears: Non-toxic - Head Exam Head Exam: NORMAL INSPECTION - ENT Exam ENT Exam: Mucous Membranes Moist - Neck Exam Neck Exam: absent: Lymphadenopathy, Meningismus - Respiratory Exam Respiratory Exam: Decreased Breath Sounds - Cardiovascular Exam Cardiovascular Exam: +S1, +S2 - GI/Abdominal Exam GI & Abdominal Exam: Soft. absent: Tenderness Assessment and Plan - Assessment and Plan (Free Text) Plan: Assessment Systemic Inflammatory Response Syndrome, consider due to acute encephalopathy etiology to be determined R/O seizures, R/O drug-induced R/O aspiration pneumonia asthma history of sciatica history of drug use Plan on zosyn day 3; cultures have been negative; PCT is elevated but may be elevated also if patient had a seizure; may be switched to PO augmentin for another 5-7 days when ready for discharge reviewed Neuro evaluation Rapid HIV is negative
[2016-12-27] MEDS: Albuterol-Ipratrop 3 mg / 0.5 (3 ml) UD IH PRN ×2 (12:01→21:00)
--- NOTE | 2016-12-27 13:23 | CP.PCM.PN ---
<John Briones - Last Filed: 12/27/16 13:19> Subjective - Date & Time of Evaluation Date of Evaluation: 12/27/16 Time of Evaluation: 13:19 - Subjective Subjective: Medicine Progress Note: Pt seen and examined at bedside. Pt denied any acute overnight events. Pt states that breathing has improved. Pt denied CP, SOB, nausea, vomiting, diarrhea, consitpation, abdominal pain, DIAZ, dizziness, or dysuria. Objective - Vital Signs/Intake and Output Vital Signs (last 24 hours): Temp Pulse Resp BP Pulse Ox 98.4 F 76 20 158/82 H 96 12/27/16 12:00 12/27/16 12:00 12/27/16 12:00 12/27/16 12:00 12/27/16 05:52 Intake and Output: 12/27/16 12/27/16 06:59 18:59 Intake Total 560 Balance 560 - Medications Medications: Current Medications Acetaminophen (Tylenol 325mg Tab) 650 mg PO Q6H PRN PRN Reason: Pain, Mild (1-3) Last Admin: 12/26/16 09:08 Dose: 650 mg Albuterol/Ipratropium (Duoneb 3 Mg/0.5 Mg (3 Ml) Ud) 3 ml IH [id number] PRN PRN Reason: Shortness of Breath Last Admin: 12/27/16 12:01 Dose: 3 ml Aspirin (Aspirin Chewable) 81 mg PO DAILY [facility] Last Admin: 12/27/16 09:59 Dose: 81 mg Benzocaine/Menthol (Cepacol Sore Throat) 1 laura MT Q2H PRN PRN Reason: Sore Throat Last Admin: 12/26/16 14:17 Dose: 1 laura Enoxaparin Sodium (Lovenox) 40 mg SC DAILY [facility] PRN Reason: Protocol Piperacillin Sod/Tazobactam Sod (Zosyn 2.25 Gm In 0.9% 100 Ml) 2.25 gm in 100 mls @ 100 mls/hr IVPB Q6 [facility] PRN Reason: Protocol Stop: 12/31/16 18:01 Last Admin: 12/27/16 06:12 Dose: 100 mls/hr Lisinopril (Zestril) 5 mg PO DAILY [facility] Last Admin: 12/27/16 10:01 Dose: 5 mg Lorazepam (Ativan) 2 mg IVP ONCE PRN; Protocol PRN Reason: Agitation Last Admin: 12/24/16 16:45 Dose: 2 mg Methylprednisolone (Solu-Medrol) 30 mg IVP Q8H [facility] Stop: 12/27/16 23:59 Last Admin: 12/27/16 06:13 Dose: 30 mg Methylprednisolone (Medrol) 8 mg PO TID [facility] PRN Reason: Taper Stop: 01/02/17 09:14 Pantoprazole Sodium (Protonix Inj) 40 mg IVP Q12 [facility] Last Admin: 12/27/16 09:59 Dose: 40 mg Phenol/Menthol (Phenaseptic 1.4% Throat [place]) 1 ml MT Q2H PRN PRN Reason: Sore Throat Last Admin: 12/25/16 21:29 Dose: 1 ml Spironolactone (Aldactone) 12.5 mg PO DAILY [facility] - Labs Labs: 12/27/16 06:25 12/27/16 06:25 PT 13.2 SECONDS (9.4-12.5) H 12/25/16 06:00 INR 1.20 (0.93-1.08) H 12/25/16 06:00 APTT 32.7 Seconds (25.1-36.5) 12/24/16 10:30 - Constitutional Appears: No Acute Distress - Head Exam Head Exam: ATRAUMATIC, NORMOCEPHALIC - Eye Exam Eye Exam: EOMI, Normal appearance, PERRL Pupil Exam: NORMAL ACCOMODATION, PERRL - ENT Exam ENT Exam: Mucous Membranes Moist, Normal Exam - Neck Exam Neck Exam: Full ROM, Normal Inspection. absent: Lymphadenopathy, Tenderness, Thyromegaly - Respiratory Exam Respiratory Exam: Accessory Muscle Use, Wheezes, Respiratory Distress. absent: Rales, Rhonchi - Cardiovascular Exam Cardiovascular Exam: RRR, +S1, +S2. absent: Diastolic murmur, Gallop, Rubs, Murmur - GI/Abdominal Exam GI & Abdominal Exam: Soft. absent: Distended, Guarding, Tenderness, Mass, Rebound - Extremities Exam Extremities Exam: Normal Inspection - Back Exam Back Exam: NORMAL INSPECTION - Neurological Exam Neurological Exam: Alert, Awake, Oriented x3 - Psychiatric Exam Psychiatric exam: Normal Affect, Normal Mood - Skin Skin Exam: Dry, Intact, Normal Color, Warm Assessment and Plan - Assessment and Plan (Free Text) Assessment: 36 year old male PMHx asthma, sciatica, and drug use was intubated after being found unresponsive by at home. Patient was admitted to ICU for evaluation due to AMS, respiratory failure, SIRS, and hematemesis. Pt currently self-extubated and AMS likely due to asthma exacerbation vs overdose. Plan: 1. Cardiomyopathy - Troponin 0.12, 0.37, 0.39 - EKG showed sinus tachycardia - Echo showed LVEF of 26.9% - Cont ASA, Lisinopril - Cardio consulted Started Lovenox and Aldactone 2. Respiratory Failure likely 2/2 asthma exacerbation - Self-extubated - VBG on admission pH: 6.95, pCO2: 133, HCO3: 29.2, Total CO2: 33.3 - ABG showed hypercapnic respiratory acidosis on admission, which has resolved on repeat ABC - CXR showed heterogeneous opacities in the lungs more prominent at the perihilar region. Suspicion for partial atelectasis of the left lung associated with mediastinal shift to the left. Stomach is distended. - Duoneb 3ml inh q6 - Solumedrol IV d/c switched to Medrol dose pack 3. AMS, resolved - drug overdose (benadryl, cannabis, opioid) vs asthma exacerbation - Head CT showed questionable 4mm focus on increased attenuation at the left frontal lobe peripherally. Possibility of a small hemorrhage cannot be excluded - CT cervical spine showed no evidence of acute fracture of subluxation - Brain MRI showed no evidence of acute infarction or acute pathology in the brain - Head MRA was unremarkable - UDS: + cannabinoids only - Neurology consulted - Neurosurgery consulted - Psych consulted Clear for DC when medically cleared 4. SIRS, resolved - ID consulted Switch to PO Augmentin 5-7 days upon discharge - Blood cultures negative after 24 hours - Urine cultures negative - Sputum cultures negative - WBC downtrending, current elevation likely due to steroids - Procalcitonin 3.84 - HIV negative - Zosyn and Vancomycin continued 5. Coffee-ground Emesis likely 2/2 traumatic ETT, resolved - GI consulted No intervention Cont Protonix 40mg ivp q12 Ok to start ASA 6. Transaminitis - LFT's stable - Acute Hep panel negative - Abdominal US showed heterogeneous diffuse increased echogencity of the liver suggestive of liver steatosis or parenchymal liver disease. Slight intrahepatic biliary ductal dilatation. No evidence of cholelithiaisis or cholecystitis 7. Acute Kidney Injury, resolved - Cont to monitor GI ppx: Protonix DVT ppx: Lovenox Diet: Soft diet Precautions: Aspiration, Seizure Pt seen and discussed in detail with Dr. Carpenter. Leon Briones, PGY1 <Ruth Carpenter - Last Filed: 12/27/16 15:24> Objective - Vital Signs/Intake and Output Vital Signs (last 24 hours): Temp Pulse Resp BP Pulse Ox 98.4 F 84 20 158/82 H 96 12/27/16 12:00 12/27/16 14:00 12/27/16 12:00 12/27/16 12:00 12/27/16 05:52 Intake and Output: 12/27/16 12/27/16 06:59 18:59 Intake Total 560 Balance 560 - Medications Medications: Current Medications Acetaminophen (Tylenol 325mg Tab) 650 mg PO Q6H PRN PRN Reason: Pain, Mild (1-3) Last Admin: 12/26/16 09:08 Dose: 650 mg Albuterol/Ipratropium (Duoneb 3 Mg/0.5 Mg (3 Ml) Ud) 3 ml IH [id number] PRN PRN Reason: Shortness of Breath Last Admin: 12/27/16 12:01 Dose: 3 ml Aspirin (Aspirin Chewable) 81 mg PO DAILY [facility] Last Admin: 12/27/16 09:59 Dose: 81 mg Benzocaine/Menthol (Cepacol Sore Throat) 1 laura MT Q2H PRN PRN Reason: Sore Throat Last Admin: 12/26/16 14:17 Dose: 1 laura Enoxaparin Sodium (Lovenox) 40 mg SC DAILY [facility] PRN Reason: Protocol Last Admin: 12/27/16 13:57 Dose: 40 mg Piperacillin Sod/Tazobactam Sod (Zosyn 2.25 Gm In 0.9% 100 Ml) 2.25 gm in 100 mls @ 100 mls/hr IVPB Q6 [facility] PRN Reason: Protocol Stop: 12/31/16 18:01 Last Admin: 12/27/16 06:12 Dose: 100 mls/hr Lisinopril (Zestril) 5 mg PO DAILY [facility] Last Admin: 12/27/16 10:01 Dose: 5 mg Lorazepam (Ativan) 2 mg IVP ONCE PRN; Protocol PRN Reason: Agitation Last Admin: 12/24/16 16:45 Dose: 2 mg Methylprednisolone (Medrol) 8 mg PO TID [facility] PRN Reason: Taper Stop: 01/02/17 09:14 Pantoprazole Sodium (Protonix Inj) 40 mg IVP Q12 [facility] Last Admin: 12/27/16 09:59 Dose: 40 mg Phenol/Menthol (Phenaseptic 1.4% Throat [place]) 1 ml MT Q2H PRN PRN Reason: Sore Throat Last Admin: 12/25/16 21:29 Dose: 1 ml Spironolactone (Aldactone) 12.5 mg PO DAILY [facility] Last Admin: 12/27/16 13:57 Dose: 12.5 mg - Labs Labs: 12/27/16 06:25 12/27/16 06:25 PT 13.2 SECONDS (9.4-12.5) H 12/25/16 06:00 INR 1.20 (0.93-1.08) H 12/25/16 06:00 APTT 32.7 Seconds (25.1-36.5) 12/24/16 10:30 Attending/Attestation - Attestation I have personally seen and examined this patient.: Yes I have fully participated in the care of the patient.: Yes I have reviewed all pertinent clinical information, including history, physical exam and plan: Yes Notes (Text): 12/27/16 15:17 Patient was seen and examined with medical affairs specialist. 36 yrs old male with PMH of Drug overdose was admitted with change of mental status . drug overdose ,treated for asthma exacerbation, patient is SP extubation, he is not wheezing, will discontinue IV steroid and will start on tapering dose of steroid. He is afebrile, cultures are negative.Antibiotics can be discontinued. Cardiomyopathy, etiology unclear, has systolic dysfunction EF 29%, patient is euvolemic, started on low dose of Lisinopril.We will follow up cardiology recommendation. Management plan was discussed in detail with patient Education was provided.
[2016-12-27] MEDS: Enoxaparin 40 mg Syringe SC SCH (13:57)
--- NOTE | 2016-12-27 23:05 | CON ---
CARDIOLOGY CONSULTATION REASON FOR CONSULTATION: Cardiomyopathy. HISTORY OF PRESENT ILLNESS: The patient is a 36-year-old male who has a history of bronchial asthma and drug abuse who was brought in emergency room as he was found unresponsive in the house by his family members. The patient admitted to using heroin and received 2 mg of IV Narcan. The patient was subsequently intubated and was admitted to the ICU. The patient is currently on telemetry and he denies any chest pain and reports that his shortness of breath has improved and he wants to leave today to catch up with his work. The patient is unaware of any prior cardiac history. SOCIAL HISTORY: The patient is a smoker and heroin abuser, but he uses some sort of specific heroin, does not show up on the urine drug screen. His drug screen is positive for only cannabinoids. REVIEW OF SYSTEMS: No nausea or vomiting. No fever or chills. MEDICATIONS: Aspirin 81 mg once a day, albuterol inhaler q.6 hours, Protonix 40 mg intravenously twice a day, Solu-Medrol 30 mg intravenously q.8 hours, Zestril 5 mg daily, Zosyn 2.25 g intravenously q.6 hours. PHYSICAL EXAMINATION: GENERAL: The patient is a young middle-aged male who does not appear to be in any distress at this time. VITAL SIGNS: Blood pressure /67, heart rate 60, temperature 97.4, respirations 20. HEENT: Normocephalic. CHEST: Bilateral rhonchi. HEART: S1 and S2, regular. S3 gallop is noted. ABDOMEN: Soft. EXTREMITIES: No edema. LABORATORY DATA AND IMAGING STUDIES: Hemoglobin and hematocrit 14.3 and 42.5, white count 13.6 and platelet count 216,000. Today's SMA-7 is within normal limits except for anion gap of 9. INR is 1.2. The most recent chest x-ray revealed mild CHF. There is no cardiomegaly. Echocardiograph study performed 3 days ago revealed ejection fraction ranged 25-30%, mild to moderately reduced right ventricular systolic function. ASSESSMENT: 1. Congestive heart failure with severe impaired left ventricular systolic function. 2. Mild to moderately reduced right ventricular systolic function. 3. Cannabinoids and opiate abuse. RECOMMENDATIONS: Continue current aspirin 81 mg once a day, Zestril 5 mg daily. Start Aldactone at 12.5 mg daily. The patient is recommended to have the cardiac cath and he should be placed on anticoagulation if he proved to be complaint; however, at this time, the patient has the urge to leave today to go to his work and we will further discuss that with the primary physician. Shailesh Lyons MD
[2016-12-28] MEDS: Piperacillin/Tazobact 2.25gm 2.25 GM/100 ML BAG IVPB SCH ×2 (00:02→05:40)
[2016-12-28 06:19] LABS: BASO # 0.01 K/mm3 (0.0-2.0); BASO % 0.1 % (0.0-3.0); EOS # 0.1 (0.0-0.7); EOS % 0.6 % (1.5-5.0); GRAN # 5.13 (1.4-6.5); GRAN % 63.7 % (50.0-68.0); HEMATOCRIT 44.6 % (42.0-52.0); LYMPH # 2.2 (1.2-3.4); MEAN CELL VOLUME 92.5 fl (80.0-105.0); MEAN CORPUSCULAR HEMOGLOBIN 31.5 pg (25.0-35.0); MEAN CORPUSCULAR HGB CONC 34.1 g/dl (31.0-37.0); MEAN PLATELET VOLUME 10.9 fl (7.0-11.0); MONO # 0.7 (0.1-0.6); MONO % 8.6 % (1.0-6.0); RED CELL DISTRIBUTION WIDTH 12.7 % (11.5-14.5); WHITE BLOOD COUNT 8.1 10^3/ul (4.5-11.0)
[2016-12-28 06:32] LABS: ALB/GLOB RATIO 1.5 (1.1-1.8); ALKALINE PHOSPHATASE 38 U/L (38-126); ALT/SGPT 94 U/L (7-56); AST/SGOT 40 U/L (17-59); BILIRUBIN,TOTAL 0.8 mg/dL (0.2-1.3); BLOOD UREA NITROGEN 24 mg/dL (7-21); CALCIUM 9.2 mg/dL (8.4-10.5); CARBON DIOXIDE 32 mmol/L (21-33); CHLORIDE 103 mmol/L (98-107); GFR AFRICAN-AMERICAN > 60; GLUCOSE,RANDOM 89 mg/dL (70-110); PHOSPHOROUS 3.5 mg/dL (2.5-4.5); POTASSIUM 3.5 mmol/L (3.6-5.0); SODIUM 141 mmol/L (132-148); TOTAL PROTEIN 6.3 g/dL (5.8-8.3)
[2016-12-28] MEDS ORDERED: Potassium Chloride 20 mEq ER Tab PO STA (07:44)
[2016-12-28] MEDS: Benzocaine/Menthol (Cepacol) Lozenge MT PRN ×2 (11:07→22:28)
[2016-12-28] MEDS: Amoxicillin-Clav 875-125 mg Tab PO SCH ×2 (11:07→22:16)
[2016-12-28] MEDS: Phenol Topical 1.4% Throat Spray (180 ml) MT PRN (11:08)
[2016-12-28] MEDS: Enoxaparin 40 mg Syringe SC SCH (11:09)
[2016-12-28] MEDS: Albuterol-Ipratrop 3 mg / 0.5 (3 ml) UD IH PRN (11:14)
[2016-12-28] MEDS: Albuterol-Ipratrop 3 mg / 0.5 (3 ml) UD IH SCH ×3 (11:15→19:51)
--- NOTE | 2016-12-28 11:46 | CP.PCM.PN ---
<John Briones - Last Filed: 12/28/16 11:42> Subjective - Date & Time of Evaluation Date of Evaluation: 12/28/16 Time of Evaluation: 11:43 - Subjective Subjective: Medicine Progress Note: Pt seen and examined at bedside. Pt denies any acute overnight events. Pt is aware and agrees to cardiac catherization as per cardiology. Pt denied CP, SOB, nausea, vomiting, diarrhea, abdominal pain, DIAZ, dizziness, or dysuria. Objective - Vital Signs/Intake and Output Vital Signs (last 24 hours): Temp Pulse Resp BP Pulse Ox 98.4 F 71 20 120/88 94 L 12/28/16 06:00 12/28/16 11:05 12/28/16 06:00 12/28/16 11:05 12/28/16 06:00 Intake and Output: 12/28/16 12/28/16 06:59 18:59 Intake Total 300 Balance 300 - Medications Medications: Current Medications Acetaminophen (Tylenol 325mg Tab) 650 mg PO Q6H PRN PRN Reason: Pain, Mild (1-3) Last Admin: 12/28/16 11:06 Dose: 650 mg Albuterol/Ipratropium (Duoneb 3 Mg/0.5 Mg (3 Ml) Ud) 3 ml IH [id number] PRN PRN Reason: Shortness of Breath Last Admin: 12/28/16 11:14 Dose: 3 ml Amoxicillin/Clavulanate Potassium (Augmentin 875 Mg-125 Mg Tab) 1 tab PO Q12 [facility] PRN Reason: Protocol Last Admin: 12/28/16 11:07 Dose: 1 tab Aspirin (Aspirin Chewable) 81 mg PO DAILY [facility] Last Admin: 12/28/16 11:06 Dose: 81 mg Benzocaine/Menthol (Cepacol Sore Throat) 1 laura MT Q2H PRN PRN Reason: Sore Throat Last Admin: 12/28/16 11:07 Dose: 1 laura Enoxaparin Sodium (Lovenox) 40 mg SC DAILY [facility] PRN Reason: Protocol Last Admin: 12/28/16 11:09 Dose: 40 mg Lisinopril (Zestril) 5 mg PO DAILY [facility] Last Admin: 12/28/16 11:05 Dose: 5 mg Lorazepam (Ativan) 2 mg IVP ONCE PRN; Protocol PRN Reason: Agitation Last Admin: 12/28/16 11:08 Dose: 2 mg Methylprednisolone (Medrol) 4 mg PO 5XD [facility] PRN Reason: Taper Stop: 01/02/17 09:14 Last Admin: 12/28/16 11:07 Dose: 4 mg Pantoprazole Sodium (Protonix Inj) 40 mg IVP Q12 [facility] Last Admin: 12/28/16 11:08 Dose: 40 mg Phenol/Menthol (Phenaseptic 1.4% Throat [place]) 1 ml MT Q2H PRN PRN Reason: Sore Throat Last Admin: 12/28/16 11:08 Dose: 1 ml Spironolactone (Aldactone) 12.5 mg PO DAILY [facility] Last Admin: 12/28/16 11:07 Dose: 12.5 mg - Labs Labs: 12/28/16 06:00 12/28/16 06:00 PT 13.2 SECONDS (9.4-12.5) H 12/25/16 06:00 INR 1.20 (0.93-1.08) H 12/25/16 06:00 APTT 32.7 Seconds (25.1-36.5) 12/24/16 10:30 - Constitutional Appears: No Acute Distress - Head Exam Head Exam: ATRAUMATIC, NORMAL INSPECTION, NORMOCEPHALIC - Eye Exam Eye Exam: EOMI, Normal appearance, PERRL - ENT Exam ENT Exam: Mucous Membranes Moist - Neck Exam Neck Exam: Full ROM. absent: Lymphadenopathy, Tenderness, Thyromegaly - Respiratory Exam Respiratory Exam: Clear to Ausculation Bilateral. absent: Accessory Muscle Use , Rales, Rhonchi, Wheezes, Respiratory Distress - Cardiovascular Exam Cardiovascular Exam: RRR, +S1, +S2. absent: Diastolic murmur, Gallop, Rubs, Murmur - GI/Abdominal Exam GI & Abdominal Exam: Soft. absent: Distended, Guarding, Tenderness, Hernia, Mass, Rebound - Extremities Exam Extremities Exam: Full ROM, Normal Capillary Refill, Normal Inspection - Back Exam Back Exam: NORMAL INSPECTION - Neurological Exam Neurological Exam: Alert, Awake, Oriented x3 - Psychiatric Exam Psychiatric exam: Normal Affect, Normal Mood - Skin Skin Exam: Dry, Intact, Normal Color, Warm Assessment and Plan - Assessment and Plan (Free Text) Assessment: 36 year old male PMHx asthma, sciatica, and drug use was intubated after being found unresponsive by at home. Patient was admitted to ICU for evaluation due to AMS, respiratory failure, SIRS, and hematemesis. Pt currently self-extubated and AMS likely due to asthma exacerbation vs overdose. Plan: 1. Severe CHF, with impaired LVEF - Troponin 0.12, 0.37, 0.39 - EKG showed sinus tachycardia - Echo showed LVEF of 26.9% - Cont ASA, Lisinopril - Cardio consulted Cont Lovenox, Aldactone, lisinopril Cardiac Cath scheduled for tomorrow NPO after midnight 2. Hypokalemia - K 3.5 - Repleted with PO KCl - Cont to monitor 3. Respiratory Failure likely 2/2 asthma exacerbation - Self-extubated - VBG on admission pH: 6.95, pCO2: 133, HCO3: 29.2, Total CO2: 33.3 - ABG showed hypercapnic respiratory acidosis on admission, which has resolved on repeat ABC - CXR showed heterogeneous opacities in the lungs more prominent at the perihilar region. Suspicion for partial atelectasis of the left lung associated with mediastinal shift to the left. Stomach is distended. - Duoneb 3ml inh q6 - Medrol dose pack 4. AMS, resolved - drug overdose (benadryl, cannabis, opioid) vs asthma exacerbation - Head CT showed questionable 4mm focus on increased attenuation at the left frontal lobe peripherally. Possibility of a small hemorrhage cannot be excluded - CT cervical spine showed no evidence of acute fracture of subluxation - Brain MRI showed no evidence of acute infarction or acute pathology in the brain - Head MRA was unremarkable - UDS: + cannabinoids only - Neurology consulted - Neurosurgery consulted - Psych consulted Clear for DC when medically cleared 5. SIRS, resolved - ID consulted PO Augmentin 5-7 days - Blood cultures negative after 24 hours - Urine cultures negative - Sputum cultures negative - WBC downtrending, current elevation likely due to steroids - Procalcitonin 3.84 - HIV negative - Zosyn and Vancomycin continued 6. Coffee-ground Emesis likely 2/2 traumatic ETT, resolved - GI consulted No intervention Cont Protonix 40mg ivp q12 Ok to start ASA 7. Transaminitis - LFT's stable - Acute Hep panel negative - Abdominal US showed heterogeneous diffuse increased echogencity of the liver suggestive of liver steatosis or parenchymal liver disease. Slight intrahepatic biliary ductal dilatation. No evidence of cholelithiaisis or cholecystitis 8. Acute Kidney Injury, resolved - Cont to monitor GI ppx: Protonix DVT ppx: Lovenox Diet: HHD Precautions: Aspiration, Seizure Pt seen and discussed in detail with Dr. Carpenter. Leon Briones, PGY1 <Ruth Carpenter - Last Filed: 12/28/16 17:21> Objective - Vital Signs/Intake and Output Vital Signs (last 24 hours): Temp Pulse Resp BP Pulse Ox 98.4 F 71 20 120/88 94 L 12/28/16 06:00 12/28/16 11:05 12/28/16 06:00 12/28/16 11:05 12/28/16 06:00 Intake and Output: 12/28/16 12/28/16 06:59 18:59 Intake Total 300 Balance 300 - Medications Medications: Current Medications Acetaminophen (Tylenol 325mg Tab) 650 mg PO Q6H PRN PRN Reason: Pain, Mild (1-3) Last Admin: 12/28/16 11:06 Dose: 650 mg Albuterol/Ipratropium (Duoneb 3 Mg/0.5 Mg (3 Ml) Ud) 3 ml IH [id number] PRN PRN Reason: Shortness of Breath Last Admin: 12/28/16 11:14 Dose: 3 ml Albuterol/Ipratropium (Duoneb 3 Mg/0.5 Mg (3 Ml) Ud) 3 ml IH Q4H [facility] Last Admin: 12/28/16 15:59 Dose: 3 ml Amoxicillin/Clavulanate Potassium (Augmentin 875 Mg-125 Mg Tab) 1 tab PO Q12 [facility] PRN Reason: Protocol Last Admin: 12/28/16 11:07 Dose: 1 tab Aspirin (Aspirin Chewable) 81 mg PO DAILY [facility] Last Admin: 12/28/16 11:06 Dose: 81 mg Benzocaine/Menthol (Cepacol Sore Throat) 1 laura MT Q2H PRN PRN Reason: Sore Throat Last Admin: 12/28/16 11:07 Dose: 1 laura Diphenhydramine HCl (Benadryl) 25 mg PO TID [facility] Enoxaparin Sodium (Lovenox) 40 mg SC DAILY [facility] PRN Reason: Protocol Last Admin: 12/28/16 11:09 Dose: 40 mg Famotidine (Pepcid) 20 mg IVP BID [facility] Lisinopril (Zestril) 5 mg PO DAILY [facility] Last Admin: 12/28/16 11:05 Dose: 5 mg Lorazepam (Ativan) 2 mg IVP ONCE PRN; Protocol PRN Reason: Agitation Last Admin: 12/28/16 11:08 Dose: 2 mg Methylprednisolone (Solu-Medrol) 80 mg IVP TID [facility] Pantoprazole Sodium (Protonix Inj) 40 mg IVP Q12 [facility] Last Admin: 12/28/16 11:08 Dose: 40 mg Phenol/Menthol (Phenaseptic 1.4% Throat [place]) 1 ml MT Q2H PRN PRN Reason: Sore Throat Last Admin: 12/28/16 11:08 Dose: 1 ml Spironolactone (Aldactone) 12.5 mg PO DAILY [facility] Last Admin: 12/28/16 11:07 Dose: 12.5 mg - Labs Labs: 12/28/16 06:00 12/28/16 06:00 PT 13.2 SECONDS (9.4-12.5) H 12/25/16 06:00 INR 1.20 (0.93-1.08) H 12/25/16 06:00 APTT 32.7 Seconds (25.1-36.5) 12/24/16 10:30 Attending/Attestation - Attestation I have personally seen and examined this patient.: Yes I have fully participated in the care of the patient.: Yes I have reviewed all pertinent clinical information, including history, physical exam and plan: Yes Notes (Text): 12/28/16 17:15 Patient was seen and examined with medical geneticist. 36 yrs old male with PMH of Drug overdose was admitted with change of mental status . drug overdose ,treated for asthma exacerbation, patient is SP extubation, on tapering dose of steroid.Cardiomyopathy, etiology unclear, has systolic dysfunction EF 29%, patient is euvolemic, on lisinopril and aldactone.Patient is agrreable for cardiac catherization for the evaluation of cardiomyopathy.We will discuss with cardiology. Mild Hypokalemia, we will replace electrolyte and follow up LABS. Management plan was discussed in detail with patient Education was provided.
[2016-12-28] MEDS ORDERED: methylPREDNISolone 500 MG in Sodium Chloride 0.9% 100 ML IVPB ONE (15:11)
[2016-12-28] MEDS ORDERED: Potassium Chloride 10 mEq ER Tab PO SCH (17:30)
[2016-12-29] MEDS: Albuterol-Ipratrop 3 mg / 0.5 (3 ml) UD IH SCH ×5 (00:25→18:52)
[2016-12-29 07:11] VITALS: O2SAT 98
[2016-12-29 07:46] LABS: EOS % 0.1 % (1.5-5.0); GRAN # 10.94 (1.4-6.5); LYMPH # 1.1 (1.2-3.4); LYMPH % 8.3 % (22.0-35.0); MEAN CELL VOLUME 90.7 fl (80.0-105.0); MEAN CORPUSCULAR HEMOGLOBIN 31.5 pg (25.0-35.0); MEAN CORPUSCULAR HGB CONC 34.7 g/dl (31.0-37.0); MEAN PLATELET VOLUME 10.7 fl (7.0-11.0); MONO # 0.6 (0.1-0.6); MONO % 4.6 % (1.0-6.0); RED CELL DISTRIBUTION WIDTH 12.4 % (11.5-14.5); WHITE BLOOD COUNT 12.6 10^3/ul (4.5-11.0)
[2016-12-29 08:11] LABS: ALB/GLOB RATIO 1.5 (1.1-1.8); ALKALINE PHOSPHATASE 52 U/L (38-126); ALT/SGPT 121 U/L (7-56); AST/SGOT 46 U/L (17-59); BILIRUBIN,TOTAL 0.8 mg/dL (0.2-1.3); BLOOD UREA NITROGEN 18 mg/dL (7-21); CARBON DIOXIDE 30 mmol/L (21-33); CHLORIDE 99 mmol/L (98-107); GFR AFRICAN-AMERICAN > 60; GLUCOSE,RANDOM 115 mg/dL (70-110); MAGNESIUM 2.1 mg/dL (1.7-2.2); PHOSPHOROUS 4.4 mg/dL (2.5-4.5); SODIUM 140 mmol/L (132-148); TOTAL PROTEIN 7.5 g/dL (5.8-8.3)
[2016-12-29] MEDS: Enoxaparin 40 mg Syringe SC SCH (09:30)
[2016-12-29] MEDS: Amoxicillin-Clav 875-125 mg Tab PO SCH (09:30)
[2016-12-29] MEDS ORDERED: DiphenhydrAMINE 50 mg/ml Inj ONE (09:31)
[2016-12-29] MEDS ORDERED: Famotidine 20mg/50ml 20 MG/50 ML BAG IVPB ONE (09:31)
--- NOTE | 2016-12-29 09:55 | PN ---
DATE: SUBJECTIVE: The patient's shortness of breath has improved. He denies any chest pain. PHYSICAL EXAMINATION: VITAL SIGNS: Blood pressure 120/88, heart rate 71, temperature 98.4, and respirations 20. HEENT: Normocephalic. CHEST: Clear. HEART: S1 and S2, regular. EXTREMITIES: No edema. LABORATORY DATA: Today's SMA-7 is within normal limits except for potassium of 3.5 and BUN of 24. Hemoglobin, hematocrit, white count, and platelet count are within normal limits. Brain MRI: No evidence of acute infarction or acute pathology. Previously questionable 4 mm focus of possible intracranial hemorrhage at the left frontal lobe in the previous CT scan is not clearly visualized in the current exam. ASSESSMENT: 1. Cardiomyopathy. 2. Status post respiratory failure. 3. Cannabinoid abuse. RECOMMENDATIONS: Continue Aldactone 12.5 mg once a day, aspirin 81 mg once a day, Zestril 5 mg once a day, K-Dur 40 mEq was given as a stat dose. The patient agreed for cardiac catheterization. Risks of bleeding, stroke, heart attack, as well as possibility of severe allergic reaction were explained. The patient has ALLERGY TO SHELLFISH and the patient will be started on Solu-Medrol, Benadryl, and Pepcid and cleared the patient for his cardiac cath. Shailesh Lyons MD
[2016-12-29] MEDS ORDERED: Lidocaine 2% Inj (20ml) ONE (13:34)
[2016-12-29] MEDS ORDERED: Midazolam 2 MG/2 ML VIAL ONE (14:10)
--- NOTE | 2016-12-29 14:30 | CP.PCM.PN ---
Subjective - Date & Time of Evaluation Date of Evaluation: 12/29/16 Time of Evaluation: 14:26 - Subjective Subjective: Medicine Progress Note: Pt seen and examined at bedside. Pt denied any acute overnight events. Pt underwent cardiac catherization today. Patient states he tolerated procedure well. Pt denied CP, SOB, nausea, vomiting, diarrhea, constipation, abdominal pain, fever, chills, DIAZ, and dizziness. Objective - Vital Signs/Intake and Output Vital Signs (last 24 hours): Temp Pulse Resp BP Pulse Ox 97.6 F 56 L 20 136/75 98 12/29/16 06:00 12/29/16 06:00 12/29/16 06:00 12/29/16 06:00 12/29/16 06:00 Intake and Output: 12/29/16 12/29/16 06:59 18:59 Intake Total 1020 Output Total 0 Balance 1020 - Medications Medications: Current Medications Acetaminophen (Tylenol 325mg Tab) 650 mg PO Q6H PRN PRN Reason: Pain, Mild (1-3) Last Admin: 12/28/16 11:06 Dose: 650 mg Albuterol/Ipratropium (Duoneb 3 Mg/0.5 Mg (3 Ml) Ud) 3 ml IH [id number] PRN PRN Reason: Shortness of Breath Last Admin: 12/28/16 11:14 Dose: 3 ml Albuterol/Ipratropium (Duoneb 3 Mg/0.5 Mg (3 Ml) Ud) 3 ml IH Q4H SILVERIO Last Admin: 12/29/16 11:55 Dose: Not Given Amoxicillin/Clavulanate Potassium (Augmentin 875 Mg-125 Mg Tab) 1 tab PO Q12 SILVERIO PRN Reason: Protocol Stop: 12/30/16 23:59 Last Admin: 12/29/16 09:30 Dose: Not Given Aspirin (Aspirin Chewable) 81 mg PO DAILY [facility] Last Admin: 12/29/16 09:17 Dose: 81 mg Benzocaine/Menthol (Cepacol Sore Throat) 1 laura MT Q2H PRN PRN Reason: Sore Throat Last Admin: 12/28/16 22:28 Dose: 1 laura Diphenhydramine HCl (Benadryl) 25 mg PO TID [facility] Last Admin: 12/29/16 09:30 Dose: Not Given Enoxaparin Sodium (Lovenox) 40 mg SC DAILY [facility] PRN Reason: Protocol Last Admin: 12/29/16 09:30 Dose: Not Given Famotidine (Pepcid) 20 mg IVP BID [facility] Last Admin: 12/29/16 09:34 Dose: Not Given Lisinopril (Zestril) 5 mg PO DAILY [facility] Last Admin: 12/29/16 09:39 Dose: Not Given Lorazepam (Ativan) 2 mg IVP ONCE PRN; Protocol PRN Reason: Agitation Last Admin: 12/28/16 11:08 Dose: 2 mg Methylprednisolone (Solu-Medrol) 80 mg IVP TID [facility] Last Admin: 12/29/16 09:39 Dose: Not Given Pantoprazole Sodium (Protonix Inj) 40 mg IVP Q12 [facility] Last Admin: 12/29/16 09:34 Dose: Not Given Phenol/Menthol (Phenaseptic 1.4% Throat [place]) 1 ml MT Q2H PRN PRN Reason: Sore Throat Last Admin: 12/28/16 11:08 Dose: 1 ml Spironolactone (Aldactone) 12.5 mg PO DAILY [facility] Last Admin: 12/29/16 09:29 Dose: Not Given - Labs Labs: 12/29/16 07:30 12/29/16 07:30 PT 13.2 SECONDS (9.4-12.5) H 12/25/16 06:00 INR 1.20 (0.93-1.08) H 12/25/16 06:00 APTT 32.7 Seconds (25.1-36.5) 12/24/16 10:30 - Constitutional Appears: No Acute Distress - Head Exam Head Exam: ATRAUMATIC, NORMAL INSPECTION, NORMOCEPHALIC - Eye Exam Eye Exam: EOMI, Normal appearance, PERRL - ENT Exam ENT Exam: Mucous Membranes Moist - Neck Exam Neck Exam: Full ROM, Normal Inspection. absent: Lymphadenopathy, Meningismus, Thyromegaly - Respiratory Exam Respiratory Exam: Clear to Ausculation Bilateral. absent: Accessory Muscle Use , Rales, Rhonchi, Wheezes, Respiratory Distress - Cardiovascular Exam Cardiovascular Exam: RRR, +S1, +S2. absent: Diastolic murmur, Gallop, Rubs, Murmur - GI/Abdominal Exam GI & Abdominal Exam: Soft, Normal Bowel Sounds. absent: Distended, Guarding, Tenderness, Rebound - Extremities Exam Extremities Exam: Normal Inspection - Back Exam Back Exam: NORMAL INSPECTION - Neurological Exam Neurological Exam: Alert, Awake, CN II-XII Intact, Oriented x3 - Psychiatric Exam Psychiatric exam: Normal Affect, Normal Mood - Skin Skin Exam: Dry, Intact, Normal Color, Warm Assessment and Plan - Assessment and Plan (Free Text) Assessment: 36 year old male PMHx asthma, sciatica, and drug use was intubated after being found unresponsive by at home. Patient was admitted to ICU for evaluation due to AMS, respiratory failure, SIRS, and hematemesis. Pt currently self-extubated and AMS likely due to asthma exacerbation vs overdose. Plan: 1. Severe CHF, with impaired LVEF - Troponin 0.12, 0.37, 0.39 - EKG showed sinus tachycardia - Echo showed LVEF of 26.9% - Cont ASA, Lisinopril - Cardio consulted Cont Lovenox, Aldactone, lisinopril Cardiac catherization today, f/u results 2. Hypokalemia, resolved - Cont to monitor, replete as needed 3. Respiratory Failure likely 2/2 asthma exacerbation, resolved - Self-extubated - VBG on admission pH: 6.95, pCO2: 133, HCO3: 29.2, Total CO2: 33.3 - ABG showed hypercapnic respiratory acidosis on admission, which has resolved on repeat ABC - CXR showed heterogeneous opacities in the lungs more prominent at the perihilar region. Suspicion for partial atelectasis of the left lung associated with mediastinal shift to the left. Stomach is distended. - Duoneb 3ml inh q6 - Medrol dose pack 4. AMS, resolved - drug overdose (benadryl, cannabis, opioid) vs asthma exacerbation - Head CT showed questionable 4mm focus on increased attenuation at the left frontal lobe peripherally. Possibility of a small hemorrhage cannot be excluded - CT cervical spine showed no evidence of acute fracture of subluxation - Brain MRI showed no evidence of acute infarction or acute pathology in the brain - Head MRA was unremarkable - UDS: + cannabinoids only - Neurology consulted - Neurosurgery consulted - Psych consulted Clear for DC when medically cleared 5. SIRS, resolved - ID consulted PO Augmentin 5-7 days - Blood cultures negative after 24 hours - Urine cultures negative - Sputum cultures negative - WBC downtrending, current elevation likely due to steroids - Procalcitonin 3.84 - HIV negative 6. Coffee-ground Emesis likely 2/2 traumatic ETT, resolved - GI consulted No intervention Cont Protonix 40mg ivp q12 Ok to start ASA 7. Transaminitis - LFT's stable - Acute Hep panel negative - Abdominal US showed heterogeneous diffuse increased echogencity of the liver suggestive of liver steatosis or parenchymal liver disease. Slight intrahepatic biliary ductal dilatation. No evidence of cholelithiaisis or cholecystitis 8. Acute Kidney Injury, resolved - Cont to monitor GI ppx: Protonix DVT ppx: Lovenox Diet: HHD Precautions: Aspiration, Seizure Pt seen and discussed in detail with Dr. Carpenter. Leon Briones, PGY1
[2016-12-29] MEDS ORDERED: Iohexol 350 MG/100 ML VIAL ONE (14:34)
--- NOTE | 2016-12-29 16:04 | CP.PCM.DIS ---
<John Briones - Last Filed: 12/29/16 15:42> Provider - Provider Date of Admission: 12/24/16 11:20 Attending physician: Ruth Carpenter MD Primary care physician: NO PRIMARY CARE PROVIDER Consults: Neuro: Larisa Neurosurg: Pawan ID: Jonathan Psych: Sanjay Cardio: [place] Surgery: [facility] Time Spent in preparation of Discharge (in minutes): 45 Hospital Course - Lab Results Lab Results: Micro Results 12/24/16 13:50 Sputum Gram Stain - Final 12/24/16 13:50 Sputum Sputum Culture - Final NORMAL ORAL MICHELLE 12/24/16 13:30 Naris MRSA Culture (Admit) - Final MRSA NOT DETECTED Most Recent Lab Values WBC 12.6 10^3/ul (4.5-11.0) H D 12/29/16 07:30 RBC 5.40 10^6/uL (3.5-6.1) 12/29/16 07:30 Hgb 17.0 g/dL (14.0-18.0) 12/29/16 07:30 Hct 49.0 % (42.0-52.0) 12/29/16 07:30 MCV 90.7 fl (80.0-105.0) 12/29/16 07:30 MCH 31.5 pg (25.0-35.0) 12/29/16 07:30 MCHC 34.7 g/dl (31.0-37.0) 12/29/16 07:30 RDW 12.4 % (11.5-14.5) 12/29/16 07:30 Plt Count 275 10^3/uL (120.0-450.0) 12/29/16 07:30 MPV 10.7 fl (7.0-11.0) 12/29/16 07:30 Gran % 87.0 % (50.0-68.0) H 12/29/16 07:30 Lymph % (Auto) 8.3 % (22.0-35.0) L 12/29/16 07:30 Henderson % (Auto) 4.6 % (1.0-6.0) 12/29/16 07:30 Eos % (Auto) 0.1 % (1.5-5.0) L 12/29/16 07:30 Baso % (Auto) 0.0 % (0.0-3.0) 12/29/16 07:30 Gran # 10.94 (1.4-6.5) H 12/29/16 07:30 Lymph # 1.1 (1.2-3.4) L 12/29/16 07:30 Henderson # 0.6 (0.1-0.6) 12/29/16 07:30 Eos # 0.0 (0.0-0.7) 12/29/16 07:30 Baso # 0.00 K/mm3 (0.0-2.0) 12/29/16 07:30 Neutrophils % (Manual) 86 % (50.0-70.0) H 12/24/16 18:30 Band Neutrophils % 5 % (0-2) H 12/24/16 18:30 Lymphocytes % (Manual) 3 % (22.0-35.0) L 12/24/16 18:30 Monocytes % (Manual) 6 % (1.0-6.0) 12/24/16 18:30 Platelet Evaluation Normal (NORMAL) 12/24/16 18:30 Large Platelets Present 12/24/16 18:30 Giant Platelets Present 12/24/16 18:30 PT 13.2 SECONDS (9.4-12.5) H 12/25/16 06:00 INR 1.20 (0.93-1.08) H 12/25/16 06:00 APTT 32.7 Seconds (25.1-36.5) 12/24/16 10:30 pCO2 38 mm/Hg (35-45) 12/25/16 06:10 pO2 40 mm/Hg (30-55) 12/26/16 01:15 HCO3 22.5 mmol/L (21-28) 12/25/16 06:10 ABG pH 7.38 (7.35-7.45) 12/25/16 06:10 ABG Total CO2 23.7 mmol.L (22-28) 12/25/16 06:10 ABG O2 Saturation 98.8 % (95-98) H 12/25/16 06:10 ABG O2 Content 19.7 ML/dl (15-23) 12/24/16 12:15 ABG Base Excess -2.3 mmol/L (-2.0-3.0) L 12/25/16 06:10 ABG Hemoglobin 15.1 g/dL (11.7-17.4) 12/24/16 12:15 ABG Carboxyhemoglobin 3.5 % (0.5-1.5) H 12/24/16 12:15 POC ABG HHb (Measured) 3.0 % (0-5) 12/24/16 12:15 ABG Methemoglobin 0.7 % (0.0-3.0) 12/24/16 12:15 ABG O2 Capacity 20.3 mL/dl (16-24) 12/24/16 12:15 ABG Potassium 3.7 mmol/L (3.6-5.2) 12/25/16 06:10 VBG pH 7.37 (7.32-7.43) 12/26/16 01:15 VBG pCO2 53.0 (40-60) 12/26/16 01:15 VBG HCO3 30.6 mmol/l (21-28) H 12/26/16 01:15 VBG Total CO2 32.2 mmol.L (22-28) H 12/26/16 01:15 VBG O2 Sat (Calc) 81.3 % (40-65) H 12/26/16 01:15 VBG Base Excess 4.0 mmol/L (0.0-2.0) H 12/26/16 01:15 VBG Potassium 4.3 mmol/L (3.6-5.2) 12/26/16 01:15 Hgb O2 Saturation 92.8 % (95.0-98.0) L 12/24/16 12:15 Sodium 139.0 mmol/L (132-148) 12/26/16 01:15 Chloride 106.0 mmol/L (98-107) 12/26/16 01:15 Glucose 128 mg/dl (75-110) H 12/26/16 01:15 Lactate 1.0 mmol/L (0.7-2.1) 12/26/16 01:15 Mechanical Rate 14 12/24/16 14:40 FiO2 21.0 % 12/26/16 01:15 Tidal Volume 500 12/24/16 14:40 PEEP 5 12/24/16 14:40 Sodium 140 mmol/L (132-148) 12/29/16 07:30 Potassium 5.0 mmol/L (3.6-5.0) 12/29/16 07:30 Chloride 99 mmol/L (98-107) 12/29/16 07:30 Carbon Dioxide 30 mmol/L (21-33) 12/29/16 07:30 Anion Gap 16 (10-20) 12/29/16 07:30 BUN 18 mg/dL (7-21) 12/29/16 07:30 Creatinine 1.0 mg/dl (0.8-1.5) 12/29/16 07:30 Est GFR ( Amer) > 60 12/29/16 07:30 Est GFR (Non-Af Amer) > 60 12/29/16 07:30 Random Glucose 115 mg/dL (70-110) H 12/29/16 07:30 Calcium 10.0 mg/dL (8.4-10.5) 12/29/16 07:30 Phosphorus 4.4 mg/dL (2.5-4.5) 12/29/16 07:30 Magnesium 2.1 mg/dL (1.7-2.2) 12/29/16 07:30 Total Bilirubin 0.8 mg/dL (0.2-1.3) 12/29/16 07:30 AST 46 U/L (17-59) 12/29/16 07:30 ALT 121 U/L (7-56) H 12/29/16 07:30 Alkaline Phosphatase 52 U/L (38-126) 12/29/16 07:30 Lactate Dehydrogenase 1222 U/L (333-699) H 12/24/16 10:30 Total Creatine Kinase 426 U/L (35-230) H 12/24/16 10:30 CK-MB (CK-2) 4.3 ng/mL (0.0-3.6) H 12/24/16 10:30 CK-MB (CK-2) % Cancelled 12/24/16 10:30 Troponin I 0.39 ng/mL H* 12/25/16 01:00 NT-Pro-B Natriuret Pep 36.4 pg/mL (0-450) 12/24/16 10:30 Total Protein 7.5 g/dL (5.8-8.3) 12/29/16 07:30 Albumin 4.5 g/dL (3.0-4.8) 12/29/16 07:30 Globulin 3.0 gm/dL 12/29/16 07:30 Albumin/Globulin Ratio 1.5 (1.1-1.8) 12/29/16 07:30 Triglycerides 72 mg/dL (35-160) 12/25/16 07:20 Cholesterol 126 mg/dL (130-200) L 12/25/16 07:20 LDL Cholesterol Direct 59 mg/dL (0-129) 12/25/16 07:20 HDL Cholesterol 51 mg/dL (29-60) 12/25/16 07:20 Procalcitonin 3.84 NG/ML (0.19-0.49) H 12/25/16 01:00 TSH 3rd Generation 0.58 mIU/mL (0.46-4.68) 12/26/16 13:50 Arterial Blood Potassium 3.7 mmol/L (3.6-5.2) 12/25/16 06:10 Venous Blood Potassium 4.3 mmol/L (3.6-5.2) 12/26/16 01:15 Urine Color Yellow (YELLOW) 12/24/16 10:45 Urine Appearance Clear (CLEAR) 12/24/16 10:45 Urine pH 6.0 (4.7-8.0) 12/24/16 10:45 Ur Specific [place] >= 1.030 (1.005-1.035) 12/24/16 10:45 Urine Protein 30 mg/dL (<30 mg/dL) H 12/24/16 10:45 Urine Glucose (UA) 250 mg/dL (NEGATIVE) H 12/24/16 10:45 Urine Ketones Negative mg/dL (NEGATIVE) 12/24/16 10:45 Urine Blood Large (NEGATIVE) H 12/24/16 10:45 Urine Nitrate Negative (NEGATIVE) 12/24/16 10:45 Urine Bilirubin Negative (NEGATIVE) 12/24/16 10:45 Urine Urobilinogen 0.2 E.U./dL (<1 E.U./dL) 12/24/16 10:45 Ur Leukocyte Esterase Negative Kt/uL (NEGATIVE) 12/24/16 10:45 Urine RBC 10 - 15 /hpf (0-2) 12/24/16 10:45 Urine WBC 1 - 3 /hpf (0-6) 12/24/16 10:45 Ur Epithelial Cells None /hpf (0-5) 12/24/16 10:45 Amorphous Sediment Few 12/24/16 10:45 Urine Bacteria Mod (NEG) 12/24/16 10:45 Hyaline Casts 0 - 2 /hpf 12/24/16 10:45 Fine Granular Casts 0 - 2 /hpf (0-2) 12/24/16 10:45 Coarse Granular Casts Trace /hpf (0-2) H 12/24/16 10:45 Salicylates < 1 mg/dL (2.0-20.0) L 12/24/16 10:45 Urine Opiates Screen Negative (NEGATIVE) 12/24/16 10:45 Urine Methadone Screen Negative (NEGATIVE) 12/24/16 10:45 Acetaminophen < 10.0 ug/ml (10.0-20.0) L 12/24/16 10:45 Ur Barbiturates Screen Negative (NEGATIVE) 12/24/16 10:45 Ur Phencyclidine Scrn Negative (NEGATIVE) 12/24/16 10:45 Ur Amphetamines Screen Negative (NEGATIVE) 12/24/16 10:45 U Benzodiazepines Scrn Negative (NEGATIVE) 12/24/16 10:45 U Oth Cocaine Metabols Negative (NEGATIVE) 12/24/16 10:45 U Cannabinoids Screen Positive (NEGATIVE) H 12/24/16 10:45 Alcohol, Quantitative < 10 mg/dL (0-10) 12/24/16 10:30 Hepatitis A IgM Ab Negative (NEGATIVE) 12/24/16 14:00 Hep Bs Antigen Negative (NEGATIVE) 12/24/16 14:00 Hep B Core IgM Ab Negative (NEGATIVE) 12/24/16 14:00 Hepatitis C Antibody Negative (NEGATIVE) 12/24/16 14:00 HIV 1&2 Ag/Ab, 4th Gen Nonreactive (Nonreactive) 12/25/16 01:00 HIV 1&2 Antibody Screen Negative (NEGATIVE) 12/24/16 18:30 Influenza Typ A,B (EIA) Negative for flu a/b (NEGATIVE) 12/24/16 12:54 - Hospital Course Hospital Course: 36 year old male PMHx asthma, sciatica, and drug use BIBA intubated after being found unresponsive by at home. Patient's girlfriend reported that he was lucid and was at baseline earlier on day of admission. Later that morning he was found he was lying on his right side with froth and white foam around his mouth , blue lips, and she could see his chest wall was retracting. EMS was called. Patient was found unresponsive with pinpoint pupils and shallow breathing. He was administered Narcan with no response. The patient was intubated. Respiratory distress with treated by EMS with inhaled medications. As per girlfriend, patient had been depressed recently due to them and was recently introduced to snorting heroin by his brother. His girlfriend stated that he has been using for the past month but she is unsure of how much. He used to take percocet, other painkillers, and Benadryl recreationally. Patient was admitted to ICU, intubated for evaluation and treatment for AMS for drug overdose vs asthma exacerbation. On second day of admission, patient self-extubated and was AOx3. Patient admitted to drug abuse/overuse. VBG and ABG showed respiratory acidosis likely 2 /2 asthma exacerbation. CXR showed heterogeneous opacities in the lungs more prominent at the perihilar region. Suspicion for partial atelectasis of the left lung associated with mediastinal shift to the left. Patient was treated with inhaled and nebulized medications and IV solu-medrol, which improved his wheezing and SOB. ID was consulted due to leukocytosis and elevated procalcitonin. HIV was negative. Patient was placed on IV abx, followed by PO abx. But no source infection was found as cultures were negative and abx were discontinued. Head CT showed questionable 4mm focus on increased attenuation at the left frontal lobe peripherally. Possibility of a small hemorrhage cannot be excluded. Neurology and neurosurgery was consulted. No surgical intervention was recommended. Follow up MRI showed no evidence of acute infarction or acute pathology in the brain. Head MRA was negative. GI was consulted due to coffee- ground emesis. GI stated that no intervention was needed and that bleed was likely due to trauma 2/2 ETT placement. Cardiology was consulted due to elevated troponin levels. Echocardiogram was ordered that showed a severely decreased LVEF of 26.9%. Cardiology placed the patient on aldactone ASA, and lisinopril. Cardiac catherization was performed. Due to results from cardiac cath, Cardiology recommended that the patient could be discharged. But should be on Carvedilol, Lisinopril, and aldactone. Patient should also have repeat echocardiogram done in 3 months. As patient was clear for discharge by cardiology, the patient will be discharged today. The patient was informed of the catherization findings and cardiology's recommendations. Patient was also given prescriptions for his asthma and medrol dose pack. Patient was instructed to follow up with [facility] and Cardiology as an outpatient. Patient was also counselled on the risks of drug abuse and medication overuse and advised complete cessation. The patient acknowledged and agreed. Discharge Exam - Head Exam Head Exam: ATRAUMATIC, NORMAL INSPECTION, NORMOCEPHALIC - Eye Exam Eye Exam: EOMI, Normal appearance, PERRL - ENT Exam ENT Exam: Mucous Membranes Moist - Neck Exam Neck exam: Full Rom - Respiratory Exam Respiratory Exam: Clear to PA & Lateral. absent: Accessory Muscle Use, Rales, Rhonchi, Wheezes, Respiratory Distress - Cardiovascular Exam Cardiovascular Exam: RRR, +S1, +S2. absent: Diastolic murmur, Gallop, Rubs, Systolic Murmur - GI/Abdominal Exam GI & Abdominal Exam: Normal Bowel Sounds, Soft. absent: Distended, Guarding, Rebound, Tenderness - Extremities Exam Extremities exam: normal inspection - Back Exam Back exam: NORMAL INSPECTION - Neurological Exam Neurological exam: Alert, Oriented x3 - Psychiatric Exam Psychiatric exam: Normal Affect, Normal Mood - Skin Skin Exam: Dry, Intact, Normal Color, Warm Discharge Plan - Discharge Medications Prescriptions: Albuterol 0.5% [Albuterol 0.5% Inhal Lakshmi (2.5 mg/0.5 ml) UD] 3 ml IH Q4 5 Days # 1 neb Albuterol HFA [Ventolin HFA 90 mcg/actuation (8 g)] 1 puff IH PRN PRN #1 inhaler PRN Reason: Shortness Of Breath Budesonide/Formoterol Fumarate [Symbicort] 1 aer IH BID #1 aer Carvedilol [Coreg] 3.125 mg PO BID #30 tab Lisinopril [Zestril] 5 mg PO DAILY #15 tab Methylprednisolone [Medrol Dose Pack (21 tabs)] 4 mg PO DAILY #21 mg Spironolactone [Aldactone] 12.5 mg PO DAILY #15 tab - Follow Up Plan Condition: CRITICAL Disposition: HOME/ ROUTINE Instructions: Asthma (DC), How to Stop Smoking (DC), Cannabis Abuse (DC), Secondhand Smoke Exposure in Children (GEN), Alcohol Withdrawal (DC) Additional Instructions: 1. Follow up with PMD within [address] [facility] 2. Follow up with Cardiology within 1 week 3. Will need repeat echocardiogram in 3 months, per cardiology 4. Take new medications as prescribed: Carvedilol, Aldactone, Lisinopril, Medrol dose pack 5. Discontinue percocet, excessive benadryl use 6. Cease all illicit drug use 7. Return to ED if symptoms worsen Referrals: Shailesh Lyons MD [Staff Provider] - PCP,GEO [Primary Care Provider] - <Ruth Carpenter - Last Filed: 12/30/16 14:42> Provider - Provider Date of Admission: 12/24/16 11:20 Attending physician: Ruth Carpenter MD Primary care physician: GEO PRIMARY CARE PROVIDER Hospital Course - Lab Results Lab Results: Micro Results 12/24/16 13:50 Sputum Gram Stain - Final 12/24/16 13:50 Sputum Sputum Culture - Final NORMAL ORAL MICHELLE 12/24/16 13:30 Naris MRSA Culture (Admit) - Final MRSA NOT DETECTED Most Recent Lab Values WBC 12.6 10^3/ul (4.5-11.0) H D 12/29/16 07:30 RBC 5.40 10^6/uL (3.5-6.1) 12/29/16 07:30 Hgb 17.0 g/dL (14.0-18.0) 12/29/16 07:30 Hct 49.0 % (42.0-52.0) 12/29/16 07:30 MCV 90.7 fl (80.0-105.0) 12/29/16 07:30 MCH 31.5 pg (25.0-35.0) 12/29/16 07:30 MCHC 34.7 g/dl (31.0-37.0) 12/29/16 07:30 RDW 12.4 % (11.5-14.5) 12/29/16 07:30 Plt Count 275 10^3/uL (120.0-450.0) 12/29/16 07:30 MPV 10.7 fl (7.0-11.0) 12/29/16 07:30 Gran % 87.0 % (50.0-68.0) H 12/29/16 07:30 Lymph % (Auto) 8.3 % (22.0-35.0) L 12/29/16 07:30 Henderson % (Auto) 4.6 % (1.0-6.0) 12/29/16 07:30 Eos % (Auto) 0.1 % (1.5-5.0) L 12/29/16 07:30 Baso % (Auto) 0.0 % (0.0-3.0) 12/29/16 07:30 Gran # 10.94 (1.4-6.5) H 12/29/16 07:30 Lymph # 1.1 (1.2-3.4) L 12/29/16 07:30 Henderson # 0.6 (0.1-0.6) 12/29/16 07:30 Eos # 0.0 (0.0-0.7) 12/29/16 07:30 Baso # 0.00 K/mm3 (0.0-2.0) 12/29/16 07:30 Neutrophils % (Manual) 86 % (50.0-70.0) H 12/24/16 18:30 Band Neutrophils % 5 % (0-2) H 12/24/16 18:30 Lymphocytes % (Manual) 3 % (22.0-35.0) L 12/24/16 18:30 Monocytes % (Manual) 6 % (1.0-6.0) 12/24/16 18:30 Platelet Evaluation Normal (NORMAL) 12/24/16 18:30 Large Platelets Present 12/24/16 18:30 Giant Platelets Present 12/24/16 18:30 PT 13.2 SECONDS (9.4-12.5) H 12/25/16 06:00 INR 1.20 (0.93-1.08) H 12/25/16 06:00 APTT 32.7 Seconds (25.1-36.5) 12/24/16 10:30 pCO2 38 mm/Hg (35-45) 12/25/16 06:10 pO2 40 mm/Hg (30-55) 12/26/16 01:15 HCO3 22.5 mmol/L (21-28) 12/25/16 06:10 ABG pH 7.38 (7.35-7.45) 12/25/16 06:10 ABG Total CO2 23.7 mmol.L (22-28) 12/25/16 06:10 ABG O2 Saturation 98.8 % (95-98) H 12/25/16 06:10 ABG O2 Content 19.7 ML/dl (15-23) 12/24/16 12:15 ABG Base Excess -2.3 mmol/L (-2.0-3.0) L 12/25/16 06:10 ABG Hemoglobin 15.1 g/dL (11.7-17.4) 12/24/16 12:15 ABG Carboxyhemoglobin 3.5 % (0.5-1.5) H 12/24/16 12:15 POC ABG HHb (Measured) 3.0 % (0-5) 12/24/16 12:15 ABG Methemoglobin 0.7 % (0.0-3.0) 12/24/16 12:15 ABG O2 Capacity 20.3 mL/dl (16-24) 12/24/16 12:15 ABG Potassium 3.7 mmol/L (3.6-5.2) 12/25/16 06:10 VBG pH 7.37 (7.32-7.43) 12/26/16 01:15 VBG pCO2 53.0 (40-60) 12/26/16 01:15 VBG HCO3 30.6 mmol/l (21-28) H 12/26/16 01:15 VBG Total CO2 32.2 mmol.L (22-28) H 12/26/16 01:15 VBG O2 Sat (Calc) 81.3 % (40-65) H 12/26/16 01:15 VBG Base Excess 4.0 mmol/L (0.0-2.0) H 12/26/16 01:15 VBG Potassium 4.3 mmol/L (3.6-5.2) 12/26/16 01:15 Hgb O2 Saturation 92.8 % (95.0-98.0) L 12/24/16 12:15 Sodium 139.0 mmol/L (132-148) 12/26/16 01:15 Chloride 106.0 mmol/L (98-107) 12/26/16 01:15 Glucose 128 mg/dl (75-110) H 12/26/16 01:15 Lactate 1.0 mmol/L (0.7-2.1) 12/26/16 01:15 Mechanical Rate 14 12/24/16 14:40 FiO2 21.0 % 12/26/16 01:15 Tidal Volume 500 12/24/16 14:40 PEEP 5 12/24/16 14:40 Sodium 140 mmol/L (132-148) 12/29/16 07:30 Potassium 5.0 mmol/L (3.6-5.0) 12/29/16 07:30 Chloride 99 mmol/L (98-107) 12/29/16 07:30 Carbon Dioxide 30 mmol/L (21-33) 12/29/16 07:30 Anion Gap 16 (10-20) 12/29/16 07:30 BUN 18 mg/dL (7-21) 12/29/16 07:30 Creatinine 1.0 mg/dl (0.8-1.5) 12/29/16 07:30 Est GFR ( Amer) > 60 12/29/16 07:30 Est GFR (Non-Af Amer) > 60 12/29/16 07:30 Random Glucose 115 mg/dL (70-110) H 12/29/16 07:30 Calcium 10.0 mg/dL (8.4-10.5) 12/29/16 07:30 Phosphorus 4.4 mg/dL (2.5-4.5) 12/29/16 07:30 Magnesium 2.1 mg/dL (1.7-2.2) 12/29/16 07:30 Total Bilirubin 0.8 mg/dL (0.2-1.3) 12/29/16 07:30 AST 46 U/L (17-59) 12/29/16 07:30 ALT 121 U/L (7-56) H 12/29/16 07:30 Alkaline Phosphatase 52 U/L (38-126) 12/29/16 07:30 Lactate Dehydrogenase 1222 U/L (333-699) H 12/24/16 10:30 Total Creatine Kinase 426 U/L (35-230) H 12/24/16 10:30 CK-MB (CK-2) 4.3 ng/mL (0.0-3.6) H 12/24/16 10:30 CK-MB (CK-2) % Cancelled 12/24/16 10:30 Troponin I 0.39 ng/mL H* 12/25/16 01:00 NT-Pro-B Natriuret Pep 36.4 pg/mL (0-450) 12/24/16 10:30 Total Protein 7.5 g/dL (5.8-8.3) 12/29/16 07:30 Albumin 4.5 g/dL (3.0-4.8) 12/29/16 07:30 Globulin 3.0 gm/dL 12/29/16 07:30 Albumin/Globulin Ratio 1.5 (1.1-1.8) 12/29/16 07:30 Triglycerides 72 mg/dL (35-160) 12/25/16 07:20 Cholesterol 126 mg/dL (130-200) L 12/25/16 07:20 LDL Cholesterol Direct 59 mg/dL (0-129) 12/25/16 07:20 HDL Cholesterol 51 mg/dL (29-60) 12/25/16 07:20 Procalcitonin 3.84 NG/ML (0.19-0.49) H 12/25/16 01:00 TSH 3rd Generation 0.58 mIU/mL (0.46-4.68) 12/26/16 13:50 Arterial Blood Potassium 3.7 mmol/L (3.6-5.2) 12/25/16 06:10 Venous Blood Potassium 4.3 mmol/L (3.6-5.2) 12/26/16 01:15 Urine Color Yellow (YELLOW) 12/24/16 10:45 Urine Appearance Clear (CLEAR) 12/24/16 10:45 Urine pH 6.0 (4.7-8.0) 12/24/16 10:45 Ur Specific [place] >= 1.030 (1.005-1.035) 12/24/16 10:45 Urine Protein 30 mg/dL (<30 mg/dL) H 12/24/16 10:45 Urine Glucose (UA) 250 mg/dL (NEGATIVE) H 12/24/16 10:45 Urine Ketones Negative mg/dL (NEGATIVE) 12/24/16 10:45 Urine Blood Large (NEGATIVE) H 12/24/16 10:45 Urine Nitrate Negative (NEGATIVE) 12/24/16 10:45 Urine Bilirubin Negative (NEGATIVE) 12/24/16 10:45 Urine Urobilinogen 0.2 E.U./dL (<1 E.U./dL) 12/24/16 10:45 Ur Leukocyte Esterase Negative Kt/uL (NEGATIVE) 12/24/16 10:45 Urine RBC 10 - 15 /hpf (0-2) 12/24/16 10:45 Urine WBC 1 - 3 /hpf (0-6) 12/24/16 10:45 Ur Epithelial Cells None /hpf (0-5) 12/24/16 10:45 Amorphous Sediment Few 12/24/16 10:45 Urine Bacteria Mod (NEG) 12/24/16 10:45 Hyaline Casts 0 - 2 /hpf 12/24/16 10:45 Fine Granular Casts 0 - 2 /hpf (0-2) 12/24/16 10:45 Coarse Granular Casts Trace /hpf (0-2) H 12/24/16 10:45 Salicylates < 1 mg/dL (2.0-20.0) L 12/24/16 10:45 Urine Opiates Screen Negative (NEGATIVE) 12/24/16 10:45 Urine Methadone Screen Negative (NEGATIVE) 12/24/16 10:45 Acetaminophen < 10.0 ug/ml (10.0-20.0) L 12/24/16 10:45 Ur Barbiturates Screen Negative (NEGATIVE) 12/24/16 10:45 Ur Phencyclidine Scrn Negative (NEGATIVE) 12/24/16 10:45 Ur Amphetamines Screen Negative (NEGATIVE) 12/24/16 10:45 U Benzodiazepines Scrn Negative (NEGATIVE) 12/24/16 10:45 U Oth Cocaine Metabols Negative (NEGATIVE) 12/24/16 10:45 U Cannabinoids Screen Positive (NEGATIVE) H 12/24/16 10:45 Alcohol, Quantitative < 10 mg/dL (0-10) 12/24/16 10:30 Hepatitis A IgM Ab Negative (NEGATIVE) 12/24/16 14:00 Hep Bs Antigen Negative (NEGATIVE) 12/24/16 14:00 Hep B Core IgM Ab Negative (NEGATIVE) 12/24/16 14:00 Hepatitis C Antibody Negative (NEGATIVE) 12/24/16 14:00 HIV 1&2 Ag/Ab, 4th Gen Nonreactive (Nonreactive) 12/25/16 01:00 HIV 1&2 Antibody Screen Negative (NEGATIVE) 12/24/16 18:30 Influenza Typ A,B (EIA) Negative for flu a/b (NEGATIVE) 12/24/16 12:54 Attending/Attestation - Attestation I have personally seen and examined this patient.: Yes I have fully participated in the care of the patient.: Yes I have reviewed all pertinent clinical information, including history, physical exam and plan: Yes Notes (Text): 12/30/16 14:38 Patient was seen and examined with medical lab technologist. 36 yrs old male with PMH of Drug overdose was admitted with change of mental status . drug overdose he was ,treated for asthma exacerbation, patient self extubated and was transferred to telemetry .He was started on tapering dose of steroid..His Echo showed Cardiomyopathy, systolic dysfunction EF 29%,.Patient underwent cardiac catherization today and was found to normal cornoaries .Case was discussed with cardiology, patient does not need any life vest as cardiac cath showed good ventriculogram. Patient is euvolemic, on lisinopril, coreg and aldactone.He will need repeat Echo in 3 month. The issue of compliance with medication and follow up was discussed in detail. The issue of drug abuse was also discussed in detail. Management plan was discussed in detail with patient Education was provided.
[2016-12-29 18:02] VITALS: RESP 18; TEMP 98.3
[2016-12-29 19:08] VITALS: BP 146/80; PULSE 104
--- NOTE | 2016-12-30 08:09 | CARDCATH ---
LEFT HEART CATHETERIZATION The patient is a 36-year-old male who has a history of bronchial asthma. He presented because of shortness of breath that required intubation and mechanical ventilation. The patient's test is positive for marijuana. The patient's echocardiographic study reported cardiomyopathy with ejection fraction estimated between 25% and 30%. Cardiac catheterization was recommended. The procedure and its risks were fully explained to the patient, understood and agreed for the procedure. The risk of major allergic reaction was also explained as the patient reports ALLERGY TO SHELLFISH. The patient was premedicated with Solu-Medrol, Pepcid, and Benadryl. PROCEDURE: After local infiltration with 1% lidocaine, a 6-Kosovan sheath was placed in the right femoral artery. Left to right coronary angiography were performed with 6-Kosovan JL4 and JR4 diagnostic catheter. Left ventriculogram and aortogram were performed with 6-Kosovan pigtail catheter. The patient tolerated the procedure well without any complications. ANGIOGRAPHIC FINDINGS: Selective injection of the left coronary artery revealed left main to be a normal vessel, left main trifurcated into medium size LAD, medium size ramus, and medium size circumflex artery and was angiographically unremarkable. Selective injection of the right coronary artery revealed a medium-size dominant vessel that was angiographically unremarkable. Left ventriculogram performed in the JUAN projection revealed normal wall motion. Ejection fraction estimated at 55%. Aortography performed in the SYRIAC projection revealed normal aortic root size. There was no aortic insufficiency with dissection. CONCLUSION: Unremarkable coronary circulation and normal left ventricular systolic function. RECOMMENDATIONS: The patient was strongly advised to abstain from drug abuse. The patient should be maintained on his current medications including aspirin and Aldactone as well as subcutaneous Lovenox. A followup echocardiographic study should be considered. Shailesh Lyons MD
== END 2016-12-29 21:29 | disposition home or self-care (01) | DRG 882 ==
LOC: ED 10:23 → ERH 11:20 → UNDOADMIN 11:26 → ERH 11:52 → CCU 13:20 → 2RNO 12-25 15:00 → 3RSO 12-27 11:45 → 2RSO 12-29 15:25
PROVIDERS: ADMIT Hospitalist; ATTEND Internal Medicine
PROC: 5A1935Z Respiratory Ventilation, Less than 24 Consecutive Hours (ICD-10-PCS; principal; 2016-12-24)
PROC: 05HM33Z Insertion of Infusion Device into Right Internal Jugular Vein, Percutaneous Approach (ICD-10-PCS; 2016-12-24)
PROC: B543ZZA Ultrasonography of Right Jugular Veins, Guidance (ICD-10-PCS; 2016-12-24)
PROC: 3E0F7GC Introduction of Other Therapeutic Substance into Respiratory Tract, Via Natural or Artificial Opening (ICD-10-PCS; 2016-12-24)
PROC: 4A023N7 Measurement of Cardiac Sampling and Pressure, Left Heart, Percutaneous Approach (ICD-10-PCS; 2016-12-29)
PROC: B2111ZZ Fluoroscopy of Multiple Coronary Arteries using Low Osmolar Contrast (ICD-10-PCS; 2016-12-29)
PROC: B2151ZZ Fluoroscopy of Left Heart using Low Osmolar Contrast (ICD-10-PCS; 2016-12-29)
DX: J96.02 Acute respiratory failure with hypercapnia (principal); J45.901 Unspecified asthma with (acute) exacerbation; R57.0 Cardiogenic shock; N17.9 Acute kidney failure, unspecified; F11.10 Opioid abuse, uncomplicated; F12.10 Cannabis abuse, uncomplicated; I50.20 Unspecified systolic (congestive) heart failure; E87.2 Acidosis; I42.9 Cardiomyopathy, unspecified; K92.2 Gastrointestinal hemorrhage, unspecified; E87.6 Hypokalemia; J44.9 Chronic obstructive pulmonary disease, unspecified; K21.9 Gastro-esophageal reflux disease without esophagitis; F17.210 Nicotine dependence, cigarettes, uncomplicated; F32.9 Major depressive disorder, single episode, unspecified; M54.30 Sciatica, unspecified side

== ENCOUNTER 2017-03-11 23:06 | Emergency (ER) | payer OTHER ==
--- NOTE | 2017-03-11 23:13 | ED PDOC ---
Arrival/HPI <Jose Singh - Last Filed: 03/11/17 23:31> - General Historian: Patient <Jim Wyman - Last Filed: 03/12/17 15:17> - General Time Seen by Provider: 03/11/17 23:09 - History of Present Illness Narrative History of Present Illness (Text): 03/11/17 23:10 36 y/o male, pmh including asthma, nkda, c/o wheezing and asthma x 1 hour. Pt. stated that he was smoking outside as he is here to visit, noted to have wheezing and no asthma pump with him, no palpitation, no rash, no night sweat, no dizziness, no numbness or tingling, no rash, no other medical or psychological complaints. (Jim Wyman) Past Medical History - Provider Review Nursing Documentation Reviewed: Yes - Tetanus Immunization Tetanus Immunization: Up to Date - Cardiac Hx Cardiac Disorders: No - Pulmonary Hx Asthma: Yes - Neurological Hx Neurological Disorder: No - HEENT Hx HEENT Disorder: No - Renal Hx Renal Disorder: No - Endocrine/Metabolic Hx Endocrine Disorders: No - Hematological/Oncological Hx Blood Disorders: No - Integumentary Hx Dermatological Disorder: No - Musculoskeletal/Rheumatological Hx Musculoskeletal Disorders: No Hx Falls: No - Gastrointestinal Hx Gastroesophageal Reflux: Yes - Genitourinary/Gynecological Hx Genitourinary Disorders: No - Psychiatric Hx Substance Use: No - Anesthesia Hx Anesthesia: No - Suicidal Assessment Feels Threatened In Home Enviroment: No <Jim Wyman - Last Filed: 03/12/17 15:17> Family/Social History - Physician Review Nursing Documentation Reviewed: Yes Family/Social History: Unknown Family HX Smoking Status: Never Smoked Hx Alcohol Use: No Hx Substance Use: No Substance used: heroin <Jim Wyman - Last Filed: 03/12/17 15:17> Allergies/Home Meds <Jose Singh - Last Filed: 03/11/17 23:31> <Jim Wyman - Last Filed: 03/12/17 15:17> Allergies/Adverse Reactions: Allergies cat dander Allergy (Verified 12/24/16 10:25) RASH shellfish Allergy (Uncoded 12/29/16 04:42) RASH Review of Systems - Review of Systems Constitutional: absent: Fatigue, Fevers Eyes: absent: Vision Changes ENT: absent: Hearing Changes Respiratory: Wheezing. absent: SOB, Cough Cardiovascular: absent: Chest Pain Gastrointestinal: absent: Abdominal Pain, Nausea, Vomiting Musculoskeletal: absent: Arthralgias, Back Pain Skin: absent: Rash, Pruritis Neurological: absent: Headache Psychiatric: absent: Anxiety, Depression <Jim Wyman - Last Filed: 03/12/17 15:17> Physical Exam - Systems Exam Head: Present: Atraumatic, Normocephalic Pupils: Present: PERRL Extroacular Muscles: Present: EOMI Conjunctiva: Present: Normal Mouth: Present: Moist Mucous Membranes Pharnyx: No: ERYTHEMA, EXUDATE, TONSILS ENLARGED Nose (External): Present: Atraumatic. No: Abrasion, Contusion Nose (Internal): Present: Normal Inspection, No Active Bleeding. No: Rhinorrhea , Septal Hematoma, Epistaxis Neck: Present: Normal Range of Motion Respiratory/Chest: Present: Clear to Auscultation, Good Air Exchange, Wheezes, Decreased Breath Sounds. No: Respiratory Distress, Accessory Muscle Use, Rales , Retracting, Rhonchi, Tachypneic, Tender to Palpation Cardiovascular: Present: Regular Rate and Rhythm, Normal S1, S2. No: Murmurs Abdomen: Present: Normal Bowel Sounds. No: Tenderness, Distention, Peritoneal Signs, Rebound, Guarding Back: Present: Normal Inspection. No: CVA Tenderness, Midline Tenderness, Paraspinal Tenderness Upper Extremity: Present: Normal Inspection. No: Cyanosis, Edema Lower Extremity: Present: Normal Inspection. No: Edema Neurological: Present: GCS=15, Speech Normal, Motor Func Grossly Intact, Gait Normal, Memory Normal Skin: Present: Warm, Dry, Normal Color. No: Rashes Psychiatric: Present: Alert, Oriented x 3, Normal Insight, Normal Concentration <Jim Wyman - Last Filed: 03/12/17 15:17> Vital Signs Temp Pulse Resp BP Pulse Ox 03/12/17 00:45 74 18 135/72 99 03/11/17 23:20 20 98 03/11/17 23:08 98.1 F 77 18 138/75 98 Medical Decision Making <Jose Singh - Last Filed: 03/11/17 23:31> - RAD Interpretation Drilling Field Operator: Radiologist <Jmi Wyman - Last Filed: 03/12/17 15:17> ED Course and Treatment: 03/11/17 23:16 -Duoneb and prednisone -Chest xray -Observe and reassess 03/12/17 00:23 -Chest xray show no active disease -Wheezing resolved with bilateral clear to auscultate, no retractions or crackles. -Discharge home with prendisone, albuterol MDI, stay hydrated, bed rest, avoid smoking, follow up with your own pmd within 2 days, return to the ER for any new or worsening signs or symptoms. (Jim Wyman) - RAD Interpretation Radiology Orders: 03/11/17 23:17 CHEST PORTABLE [RAD] Stat 03/11/17 23:17 CHEST PORTABLE [RAD] Stat no active pulmonary disease (Jim Wyman) - Medication Orders Current Medication Orders: Discontinued Medications Albuterol/Ipratropium (Duoneb 3 Mg/0.5 Mg (3 Ml) Ud) 3 ml IH Q15M SILVERIO Stop: 03/12/17 00:01 Last Admin: 03/12/17 00:05 Dose: 3 ml Methylprednisolone (Solu-Medrol) 125 mg IVP STAT STA Stop: 03/11/17 23:18 Last Admin: 03/11/17 23:36 Dose: 125 mg IVP Administration Document 03/11/17 23:36 ESTER (Rec: 03/11/17 23:36 [facility] [id number]) Charges for Administration # of IVP Administrations 1 - PA / MENTAL HEALTH TECHNICIAN / Resident Statement FAITH has reviewed & agrees with the documentation as recorded. <Jose Singh - Last Filed: 03/11/17 23:31> - PA / MENTAL HEALTH TECHNICIAN / Resident Statement FAITH has reviewed & agrees with the documentation as recorded. <Jim Wyman - Last Filed: 03/12/17 15:17> Disposition/Present on Arrival <Jose Singh - Last Filed: 03/11/17 23:31> - Present on Arrival Any Indicators Present on Arrival: No History of DVT/PE: No History of Uncontrolled Diabetes: No Urinary Catheter: No History of Decub. Ulcer: No History Surgical Site Infection Following: None - Disposition Have Diagnosis and Disposition been Completed?: Yes Disposition Time: 00:24 Patient Plan: Discharge <Jim Wyman - Last Filed: 03/12/17 15:17> - Disposition Diagnosis: Asthma, Exacerbation of asthma Disposition: HOME/ ROUTINE Condition: IMPROVED Additional Instructions: -Discharge home with prendisone, albuterol MDI, stay hydrated, bed rest, avoid smoking, follow up with your own pmd within 2 days, return to the ER for any new or worsening signs or symptoms. Prescriptions: Albuterol HFA [Ventolin HFA 90 mcg/actuation (8 g)] 2 puff IH [id number] PRN #1 inhaler PRN Reason: Cough Prednisone 50 mg PO DAILY #5 tab Referrals: PCP,NO [Primary Care Provider] - Follow up with primary [facility] [place] [facility] [Outside] - Follow up with primary Forms: WORK NOTE
[2017-03-11 23:15] VITALS: TEMP 98.1
[2017-03-11 23:21] VITALS: BMI 38.2
[2017-03-11] MEDS: Albuterol-Ipratrop 3 mg / 0.5 (3 ml) UD IH SCH ×2 (23:36→23:45)
[2017-03-12] MEDS: Albuterol-Ipratrop 3 mg / 0.5 (3 ml) UD IH SCH (00:05)
[2017-03-12 04:41] VITALS: BP 135/72; PULSE 74; RESP 18; O2SAT 99
--- NOTE | 2017-03-12 09:35 | RAD ---
HISTORY: medical clearance COMPARISON: 12/25/2016. FINDINGS: LUNGS: The lungs are well inflated and clear. PLEURA: No significant pleural effusion identified, no pneumothorax apparent. CARDIOVASCULAR: Normal. OSSEOUS STRUCTURES: No significant abnormalities. VISUALIZED UPPER ABDOMEN: Normal. OTHER FINDINGS: None. IMPRESSION: No active pulmonary disease.
== END 2017-03-12 00:50 | disposition home or self-care (01) ==
LOC: ED 23:06
DX: J45.901 Unspecified asthma with (acute) exacerbation (principal)
CPT/HCPCS: 71045; 96374; 99284; J2930

== ENCOUNTER 2017-11-13 23:19 | Observation (INO) | payer MEDICAID ==
[~2017-11-13 23:19] MED LIST: Albuterol-Ipratrop 3 mg / 0.5 (3 ml) UD IH STA
[2017-11-13] MEDS ORDERED: Albuterol-Ipratrop 3 mg / 0.5 (3 ml) UD ONE (23:28)
[2017-11-13] MEDS ORDERED: Naloxone 0.4 mg/ml Inj (Adult) ONE (23:29)
[2017-11-13] MEDS ORDERED: Naloxone 0.4 mg/ml Inj (Adult) IVP STA (23:40)
--- NOTE | 2017-11-13 23:40 | ED PDOC ---
Arrival/HPI - General Time Seen by Provider: 11/13/17 23:39 Historian: Patient - History of Present Illness Narrative History of Present Illness (Text): 11/13/17 23:39 Jorge Alberto Cast is a 36 year old male, whose past medical history includes asthma, who presents to the Emergency department brought in by EMS status post overdose. As per EMS, patient was [place] a bridge lying face down in his spit, unresponsive. Patient brought in for suspected overdose. On arrival to Emergency department, patient noted to be poorly responsive and in moderate respiratory distress. Limited HPI and ROS secondary to patient's altered mental status. Symptom Onset: Gradual Symptom Course: Unchanged Activities at Onset: Light Context: Home Past Medical History - Provider Review Nursing Documentation Reviewed: Yes Family/Social History - Physician Review Nursing Documentation Reviewed: Yes Family/Social History: Unknown Family HX Allergies/Home Meds Allergies/Adverse Reactions: Allergies No Known Allergies Allergy (Unverified 11/13/17 23:55) Home Medications: Home Meds Medication Instructions Recorded Confirmed Unobtainable 11/14/17 11/14/17 Review of Systems - Review of Systems Systems not reviewed;Unavailable: Altered Mental Status Physical Exam Vital Signs Reviewed: Yes Temperature: Afebrile Blood Pressure: Hypertensive Pulse: Tachycardic Appearance: Positive for: Ill-Appearing Mental Status: Positive for: other (Poorly responsive) Finger Stick Blood Glucose: 293 - Systems Exam Head: Present: Atraumatic, Normocephalic Pupils: Present: Pinpoint Extroacular Muscles: Present: EOMI Mouth: Present: Moist Mucous Membranes Respiratory/Chest: Present: Respiratory Distress (Moderate respiratory distress), Rhonchi (Rhonchi bilaterally) Cardiovascular: Present: Normal S1, S2, Tachycardic. No: Murmurs Abdomen: No: Distention Upper Extremity: No: Cyanosis, Edema Lower Extremity: No: Edema, Cyanosis Neurological: Present: Other (Poorly responsive) Skin: Present: Warm, Dry, Normal Color. No: Rashes Medical Decision Making ED Course and Treatment: 11/13/17 23:17 Impression: 36 year old male brought in s/p overdose, poorly responsive in moderate respiratory distress. Plan: -- EKG -- Chest X-Ray -- Labs, cardiac enzymes -- Urine drug screen -- Zofran -- Reassess and disposition Progress Notes: 11/13/17 23:17 Pt brought in by BLS, seen on arrival to Emergency department. Pt noted with pinpoint pupils, poorly responsive, and in moderate respiratory distress. Pt giv en Narcan 2mg with positive response. Pt breathing much more easily, however rhonchi and wheezing bilaterally noted. Duoneb and Solu-medrol 125mg given. Pt showing progressive improvement following nebulizer treatments. 11/13/17 23:54 Reviewed EKG, sinus tachycardia at 120 bpm[address] Non-specific ST/T wave changes. 11/14/17 01:15 Case discussed with medical sales security operations center analyst, who is aware and agrees with plan. 11/14/17 01:[address] Glory Castro, who is aware and agrees with plan. Accepts pt in to hospitalist service. Pt will go to Telemetry observation for status asth maticus and drug overdose. 11/14/17 01:34 Chest X-Ray reviewed, shows no acute processes. - Critical Care Critical Care Minutes: 45 minutes - Lab Interpretations I have reviewed the lab results: Yes - RAD Interpretation Gamma Ray Operator: ED Physician - EKG Interpretation Interpreted by ED Physician: Yes Type: 12 lead EKG - Scribe Statement The provider has reviewed the documentation as recorded by the Scribe Jessica Rowe All medical record entries made by the Scribe were at my direction and personally dictated by me. I have reviewed the chart and agree that the record accurately reflects my personal performance of the history, physical exam, medical decision making, and the department course for this patient. I have also personally directed, reviewed, and agree with the discharge instructions and disposition. Disposition/Present on Arrival - Present on Arrival Any Indicators Present on Arrival: No History of DVT/PE: No History of Uncontrolled Diabetes: No Urinary Catheter: No History of Decub. Ulcer: No History Surgical Site Infection Following: None - Disposition Have Diagnosis and Disposition been Completed?: Yes Diagnosis: Drug overdose, Status asthmaticus Disposition Time: 01:37 Patient Problems: Current Active Problems Problem Status Onset Drug overdose Acute Status asthmaticus Acute Condition: STABLE
[2017-11-13] MEDS ORDERED: Albuterol-Ipratrop 3 mg / 0.5 (3 ml) UD IH STA ×2 (23:45→23:58)
[2017-11-14 00:09] LABS: HEMOGLOBIN 14.8 g/dL (14.0-18.0); MEAN CELL VOLUME 95.1 fl (80.0-105.0); MEAN CORPUSCULAR HEMOGLOBIN 31.7 pg (25.0-35.0); MEAN CORPUSCULAR HGB CONC 33.3 g/dl (31.0-37.0); MEAN PLATELET VOLUME 11.5 fl (7.0-11.0); RBC 4.67 10^6/uL (3.5-6.1); RED CELL DISTRIBUTION WIDTH 12.8 % (11.5-14.5); WHITE BLOOD COUNT 16.6 10^3/ul (4.5-11.0)
[2017-11-14 00:18] LABS: INR 1.05; PARTIAL THROMBOPLASTIN TIME 29.2 Seconds (25.1-36.5)
[2017-11-14 00:19] LABS: ACETAMINOPHEN < 10.0 ug/ml (10.0-20.0); SALICYLATE < 1 mg/dL (2.0-20.0)
[2017-11-14 00:20] LABS: ALB/GLOB RATIO 1.9 (1.1-1.8); ALBUMIN 4.7 g/dL (3.0-4.8); ALT/SGPT 24 U/L (7-56); AST/SGOT 37 U/L (17-59); BLOOD UREA NITROGEN 19 mg/dL (7-21); GFR NON-AFRICAN AMERICAN 53
[2017-11-14 00:31] LABS: TROPONIN I < 0.01 ng/mL
[2017-11-14] MEDS ORDERED: Azithromycin 500MG/NS 250ml 500 MG/250 ML BAG IV STA (01:35)
[2017-11-14] MEDS ORDERED: cefTRIAXone 1 gm 1 GM/100 ML BAG IV STA (01:35)
[2017-11-14] MEDS ORDERED: Naloxone 0.4 mg/ml Inj (Adult) IVP STA (02:10)
[2017-11-14 02:34] LABS: BARBITURATES, UR NEGATIVE (NEGATIVE); BENZODIAZEPINES, UR NEGATIVE (NEGATIVE); OPIATES, UR POSITIVE (NEGATIVE); PHENCYCLIDINE, UR NEGATIVE (NEGATIVE)
[2017-11-14] MEDS ORDERED: Albuterol-Ipratrop 3 mg / 0.5 (3 ml) UD IH PRN (02:35)
--- NOTE | 2017-11-14 02:50 | CP.PCM.HP ---
Addendum entered and electronically signed by Elizabeth Willis DO 11/14/17 05:24: Pt mentation improves, sit up in bed, conversing. Pt states that he snored and may have DESI - hold continuous pulse-ox - Hold bipap now - bipap HS Addendum entered and electronically signed by Elizabeth Willis DO 11/14/17 05:07: ABG: PH 7.29, CO2 50, O2 75 Acute uncompensated primary respiratory acidosis - Bipap - Pt is easily awaken. Non acute distress. Original Note: History of Present Illness - History of Present Illness History of Present Illness: PGY-[address] Castro Mr Jorge Alberto Cast, 36M w Phx of active smoker, polysubstance abuse, asthma, sciatica, was brought in by EMS. As per EMS, patient was found under a bridge lying face down in his spit, unresponsive. On arrival to Emergency department, pt noted with pinpoint pupils, poorly responsive, tachycardia, and in moderate respiratory distress. His pupils were constricted at 1mm and minimally reactive to light. He has leukocytosis at 16.6. CK elevated at 306. UDS is positive to opiate and cannabinoids. CXR shows no acute processes. EKG showed sinus tachycardia at 120 bp, Q waves in inferior leads. He was given NRB and Narcan 2mg with positive response and improvement in breathing. Rhonchi and wheezing bilaterally was noted. Duoneb and Solu-medrol 125mg given. Pt showing progressive improvement following nebulizer treatments. An additional Narcan 1mg was given, and pt mentation improves to AAOx3. Pt endorsed that he smoke marijunana (unsure if it was laced), took percocet, (but did not use benadryl this time). 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 Pt states that he had runny nose and cough for past 3 days. Denies sick contact or recent travel. ROS - denies DIAZ, diploplia, dizziness, CP, SOB, palpitation, N/V/D/C, dysuria, pain anywhere PMH: asthma, sciatica, polysubstance abuse, active smoker PSH: Denies FH: mom - HIV and asthma; dad - of AIDS at age 38 SH: Tobacco use (recent, last smoke 2 weeks ago), ETOH use rarely, MJ use, hx heroin use, hx Percocet and other painkiller abuse, hx Benadryl abuse All: cat dander Med: symbicort PMD: none pharmacy: [facility] pharmacy Present on Admission - Present on Admission Any Indicators Present on Admission: No Meds Allergies/Adverse Reactions: Allergies Allergy/AdvReac Type Severity Reaction Status Date / Time No Known Allergies Allergy Unverified 11/13/17 23:55 Physical Exam - Constitutional Appears: No Acute Distress - Head Exam Head Exam: ATRAUMATIC, NORMAL INSPECTION, NORMOCEPHALIC - Eye Exam Eye Exam: EOMI, Normal appearance, PERRL. absent: Scleral icterus Pupil Exam: PERRL Additional comments: puiple 4mm b/l - ENT Exam ENT Exam: Mucous Membranes Moist - Neck Exam Additional comments: No JVD, supple - Respiratory Exam Respiratory Exam: Rhonchi, NORMAL BREATHING PATTERN. absent: Accessory Muscle Use, Rales, Wheezes, Stridor - Cardiovascular Exam Cardiovascular Exam: REGULAR RHYTHM, +S1, +S2 - GI/Abdominal Exam GI & Abdominal Exam: Normal Bowel Sounds, Soft. absent: Distended, Guarding, Rigid, Tenderness - Extremities Exam Extremities exam: Positive for: normal capillary refill, pedal pulses present. Negative for: normal inspection, pedal edema - Back Exam Back exam: NORMAL INSPECTION. absent: CVA tenderness (L), CVA tenderness (R), paraspinal tenderness - Neurological Exam Neurological exam: Alert, CN II-XII Intact, Oriented x3 Additional comments: No slurred speech move all extremiites equally, motor 5/5 sensory intact - Psychiatric Exam Psychiatric exam: Normal Affect, Normal Mood - Skin Skin Exam: Dry, Warm Additional comments: no track rodriguez in UE b/l Results - Vital Signs Recent Vital Signs: Last Vital Signs Temp 98.1 F 11/13/17 23:38 Pulse 110 H 11/13/17 23:38 Resp 26 H 11/13/17 23:38 BP 187/69 H 11/13/17 23:38 Pulse Ox 98 11/13/17 23:38 - Labs Result Diagrams: 11/13/17 23:56 11/13/17 23:56 Labs: Laboratory Results - last 24 hr 11/13/17 11/13/17 11/13/17 23:56 23:56 23:56 WBC 16.6 H RBC 4.67 Hgb 14.8 Hct 44.4 MCV 95.1 MCH 31.7 MCHC 33.3 RDW 12.8 Plt Count 317 MPV 11.5 H PT 12.0 INR 1.05 APTT 29.2 Sodium 140 Potassium 3.5 L Chloride 98 Carbon Dioxide 26 Anion Gap 20 BUN 19 Creatinine 1.5 Est GFR ( Amer) > 60 Est GFR (Non-Af Amer) 53 Random Glucose 300 H Calcium 9.0 Total Bilirubin 0.6 AST 37 ALT 24 Alkaline Phosphatase 53 Lactate Dehydrogenase 616 Total Creatine Kinase 306 H CK-MB (CK-2) 3.0 CK-MB (CK-2) % Cancelled Troponin I < 0.01 Total Protein 7.3 Albumin 4.7 Globulin 2.5 Albumin/Globulin Ratio 1.9 H Salicylates Urine Opiates Screen Urine Methadone Screen Acetaminophen Ur Barbiturates Screen Ur Phencyclidine Scrn Ur Amphetamines Screen U Benzodiazepines Scrn U Oth Cocaine Metabols U Cannabinoids Screen Alcohol, Quantitative 11/13/17 11/13/17 11/14/17 23:56 23:56 01:16 WBC RBC Hgb Hct MCV MCH MCHC RDW Plt Count MPV PT INR APTT Sodium Potassium Chloride Carbon Dioxide Anion Gap BUN Creatinine Est GFR ( Amer) Est GFR (Non-Af Amer) Random Glucose Calcium Total Bilirubin AST ALT Alkaline Phosphatase Lactate Dehydrogenase Total Creatine Kinase CK-MB (CK-2) CK-MB (CK-2) % Troponin I Total Protein Albumin Globulin Albumin/Globulin Ratio Salicylates < 1 L Urine Opiates Screen Positive H Urine Methadone Screen Negative Acetaminophen < 10.0 L Ur Barbiturates Screen Negative Ur Phencyclidine Scrn Negative Ur Amphetamines Screen Negative U Benzodiazepines Scrn Negative U Oth Cocaine Metabols Negative U Cannabinoids Screen Positive H Alcohol, Quantitative < 10 Assessment & Plan - Assessment and Plan (Free Text) Plan: Mr Jorge Alberto Cast, 36M w PMH of active smoker, polysubstance abuse, asthma, sciatica, was brought in by EMS after being found unresponsive, face down in his drool for unknown time. His breathing and mentation improves after 3mg of Narc ane, Duoneb and Solu-medrol. He has leukocytosis at 16.6. CK elevated at 306. UDS is positive to opiate and cannabinoids. CXR shows no acute processes. EKG showed sinus tachycardia at 120 bp, Q waves in inferior leads. Pt is admitted under telemetry observation for status asthmaticus and drug overdose. AMS, likely due to overdose - resolved after 3mg narcane - follow up on ABG - Trend CK - Neuro check q4h - continous CO2 monitor status asthmaticus, trigered by bronchitis vs aspiration - Telemetry - Aspiration precaution - HOB 45 - Duoneb SILVERIO and PRN - budesonide - solumedrol 40 q12 - ceftriaxone and azithromycin Leukocytosis - follow up on blood culture, urine culture, procalcitonin, sputum culture - HIV panel Polysubstance abuse from percocet and marijuana - rehabilitation counsellor for cessation Hypoglycemia @ 300 - ISSS - A1C, lipid panel - TSH/Free T4 Prophylaxis - protonix, heparin SC s/r/d/w Dr Castro
[2017-11-14 04:23] LABS: ARTERIAL BLOOD GAS O2 SAT 96.4 % (95-98); ARTERIAL BLOOD GAS PCO2 50 mm/Hg (35-45); ARTERIAL BLOOD GAS PH 7.29 (7.35-7.45); ARTERIAL BLOOD GAS TCO2 25.5 mmol.L (22-28)
[2017-11-14 04:27] VITALS: O2SAT 95
[2017-11-14] MEDS ORDERED: Potassium Chloride 10 mEq ER Tab PO STA (04:33)
[2017-11-14 04:41] LABS: URINE BILIRUBIN NEGATIVE (NEGATIVE); URINE BLOOD TRACE-INTACT (NEGATIVE); URINE GLUCOSE (UA) 250 mg/dL (NEGATIVE); URINE LEUKOCYTE ESTERASE NEGATIVE Leu/uL (NEGATIVE); URINE PROTEIN 30 mg/dL (<30 mg/dL); URINE UROBILINOGEN 0.2 E.U./dL (<1 E.U./dL)
[2017-11-14 04:48] LABS: URINE APPEARANCE CLEAR (CLEAR); URINE COLOR YELLOW (YELLOW)
[2017-11-14 05:10] LABS: URINE EPITHELIAL CELLS 0 - 2 /hpf (0-5); URINE RBC 0 - 2 /hpf (0-2); URINE WBC 0 - 2 /hpf (0-6)
[2017-11-14] MEDS ORDERED: Pantoprazole 40 mg EC Tab PO SCH (06:00)
[2017-11-14 06:46] VITALS: BP 110/65; PULSE 98; RESP 20; TEMP 98
[2017-11-14 07:03] LABS: BASO # 0.01 K/mm3 (0.0-2.0); BASO % 0.1 % (0.0-3.0); EOS % 0.1 % (1.5-5.0); GRAN # 14.98 (1.4-6.5); GRAN % 95.9 % (50.0-68.0); HEMOGLOBIN 14.3 g/dL (14.0-18.0); LYMPH # 0.3 (1.2-3.4); LYMPH % 1.8 % (22.0-35.0); MEAN CELL VOLUME 93.3 fl (80.0-105.0); MEAN CORPUSCULAR HEMOGLOBIN 30.8 pg (25.0-35.0); MEAN PLATELET VOLUME 11.3 fl (7.0-11.0); MONO # 0.3 (0.1-0.6); MONO % 2.1 % (1.0-6.0); PLATELET COUNT 226 10^3/uL (120.0-450.0); RBC 4.64 10^6/uL (3.5-6.1); RED CELL DISTRIBUTION WIDTH 13.1 % (11.5-14.5); WHITE BLOOD COUNT 15.6 10^3/ul (4.5-11.0)
[2017-11-14 07:12] LABS: ALB/GLOB RATIO 1.9 (1.1-1.8); ALBUMIN 4.5 g/dL (3.0-4.8); ALT/SGPT 28 U/L (7-56); AST/SGOT 31 U/L (17-59); BLOOD UREA NITROGEN 19 mg/dL (7-21); CALCIUM 8.9 mg/dL (8.4-10.5); GFR NON-AFRICAN AMERICAN > 60; HDL CHOLESTEROL 60 mg/dL (29-60)
[2017-11-14 07:24] LABS: LDL CHOLESTEROL 67 mg/dL (0-129)
[2017-11-14] MEDS ORDERED: Insulin Reg-LOW-Coverage SC SCH (07:30)
[2017-11-14 07:31] LABS: FREE T4 1.24 ng/dL (0.78-2.19)
[2017-11-14] MEDS ORDERED: Albuterol-Ipratrop 3 mg / 0.5 (3 ml) UD IH SCH (08:00)
[2017-11-14] MEDS ORDERED: Budesonide 0.25 mg/2 ml Inhal Susp UD IH SCH (08:00)
--- NOTE | 2017-11-14 08:04 | RAD ---
Date of service: 11/14/2017 HISTORY: sob COMPARISON: 03/12/2017 FINDINGS: LUNGS: No active pulmonary disease. PLEURA: No significant pleural effusion identified, no pneumothorax apparent. CARDIOVASCULAR: Normal. OSSEOUS STRUCTURES: No significant abnormalities. VISUALIZED UPPER ABDOMEN: Normal. OTHER FINDINGS: None. IMPRESSION: No active disease.
[2017-11-14 08:59] LABS: NEUTROPHIL 97 % (50.0-70.0)
[2017-11-14 09:00] LABS: BAND 2 % (0-2); LYMPHOCYTE 1 % (22.0-35.0); MONOCYTE 0 % (1.0-6.0); PLATELET ESTIMATE NORMAL (NORMAL)
[2017-11-14] MEDS ORDERED: MethylPREDNISolone 40 mg Vial IVP SCH (10:00)
--- NOTE | 2017-11-14 11:23 | CARD ---
APPROVED REPORT Date of service: 11/13/2017 EKG Measurement Heart [id number] <Conclusion> Sinus tachycardia Cannot rule out Inferior infarct, age undetermined Abnormal ECG
--- NOTE | 2017-11-14 14:19 | CP.PCM.DIS ---
<Jeffrey York - Last Filed: 11/14/17 14:15> Provider - Provider Date of Admission: 11/14/17 01:34 Attending physician: Mirian De MD Time Spent in preparation of Discharge (in minutes): 45 Hospital Course - Lab Results Lab Results: Most Recent Lab Values WBC 15.6 10^3/ul (4.5-11.0) H 11/14/17 06:30 RBC 4.64 10^6/uL (3.5-6.1) 11/14/17 06:30 Hgb 14.3 g/dL (14.0-18.0) 11/14/17 06:30 Hct 43.3 % (42.0-52.0) 11/14/17 06:30 MCV 93.3 fl (80.0-105.0) 11/14/17 06:30 MCH 30.8 pg (25.0-35.0) 11/14/17 06:30 MCHC 33.0 g/dl (31.0-37.0) 11/14/17 06:30 RDW 13.1 % (11.5-14.5) 11/14/17 06:30 Plt Count 226 10^3/uL (120.0-450.0) 11/14/17 06:30 MPV 11.3 fl (7.0-11.0) H 11/14/17 06:30 Gran % 95.9 % (50.0-68.0) H 11/14/17 06:30 Lymph % (Auto) 1.8 % (22.0-35.0) L 11/14/17 06:30 Johnson % (Auto) 2.1 % (1.0-6.0) 11/14/17 06:30 Eos % (Auto) 0.1 % (1.5-5.0) L 11/14/17 06:30 Baso % (Auto) 0.1 % (0.0-3.0) 11/14/17 06:30 Gran # 14.98 (1.4-6.5) H 11/14/17 06:30 Lymph # (Auto) 0.3 (1.2-3.4) L 11/14/17 06:30 Johnson # (Auto) 0.3 (0.1-0.6) 11/14/17 06:30 Eos # (Auto) 0.0 (0.0-0.7) 11/14/17 06:30 Baso # (Auto) 0.01 K/mm3 (0.0-2.0) 11/14/17 06:30 Neutrophils % (Manual) 97 % (50.0-70.0) H 11/14/17 06:30 Band Neutrophils % 2 % (0-2) 11/14/17 06:30 Lymphocytes % (Manual) 1 % (22.0-35.0) L 11/14/17 06:30 Monocytes % (Manual) 0 % (1.0-6.0) L 11/14/17 06:30 Platelet Evaluation Normal (NORMAL) 11/14/17 06:30 PT 12.0 SECONDS (9.4-12.5) 11/13/17 23:56 INR 1.05 11/13/17 23:56 APTT 29.2 Seconds (25.1-36.5) 11/13/17 23:56 pCO2 50 mm/Hg (35-45) H 11/14/17 04:15 pO2 75.0 mm/Hg (80-100) L 11/14/17 04:15 HCO3 24.0 mmol/L (21-28) 11/14/17 04:15 ABG pH 7.29 (7.35-7.45) L 11/14/17 04:15 ABG Total CO2 25.5 mmol.L (22-28) 11/14/17 04:15 ABG O2 Saturation 96.4 % (95-98) 11/14/17 04:15 ABG Base Excess -3.1 mmol/L (-2.0-3.0) L 11/14/17 04:15 ABG Potassium 3.3 mmol/L (3.6-5.2) L 11/14/17 04:15 Sodium 140.0 mmol/L (132-148) 11/14/17 04:15 Chloride 111.0 mmol/L (98-107) H 11/14/17 04:15 Glucose 86 mg/dl (75-110) 11/14/17 04:15 Lactate 0.6 mmol/L (0.7-2.1) L 11/14/17 04:15 FiO2 32.0 % 11/14/17 04:15 Sodium 139 mmol/L (132-148) 11/14/17 06:30 Potassium 4.2 mmol/L (3.6-5.0) 11/14/17 06:30 Chloride 103 mmol/L (98-107) 11/14/17 06:30 Carbon Dioxide 27 mmol/L (21-33) 11/14/17 06:30 Anion Gap 13 (10-20) 11/14/17 06:30 BUN 19 mg/dL (7-21) 11/14/17 06:30 Creatinine 1.1 mg/dl (0.8-1.5) 11/14/17 06:30 Est GFR ( Amer) > 60 11/14/17 06:30 Est GFR (Non-Af Amer) > 60 11/14/17 06:30 POC Glucose (mg/dL) 114 mg/dL (65-110) H 11/14/17 07:36 Random Glucose 186 mg/dL (70-110) H 11/14/17 06:30 Hemoglobin A1c 5.2 % (4.2-6.5) 11/14/17 06:30 Calcium 8.9 mg/dL (8.4-10.5) 11/14/17 06:30 Total Bilirubin 0.4 mg/dL (0.2-1.3) 11/14/17 06:30 AST 31 U/L (17-59) 11/14/17 06:30 ALT 28 U/L (7-56) 11/14/17 06:30 Alkaline Phosphatase 58 U/L (38-126) 11/14/17 06:30 Lactate Dehydrogenase 616 U/L (333-699) 11/13/17 23:56 Total Creatine Kinase 228 U/L (35-230) 11/14/17 06:30 CK-MB (CK-2) 3.0 ng/mL (0.0-3.6) 11/13/17 23:56 CK-MB (CK-2) % Cancelled 11/13/17 23:56 Troponin I < 0.01 ng/mL 11/13/17 23:56 Total Protein 6.9 g/dL (5.8-8.3) 11/14/17 06:30 Albumin 4.5 g/dL (3.0-4.8) 11/14/17 06:30 Globulin 2.4 gm/dL 11/14/17 06:30 Albumin/Globulin Ratio 1.9 (1.1-1.8) H 11/14/17 06:30 Triglycerides 66 mg/dL (35-160) 11/14/17 06:30 Cholesterol 141 mg/dL (130-200) 11/14/17 06:30 LDL Cholesterol Direct 67 mg/dL (0-129) 11/14/17 06:30 HDL Cholesterol 60 mg/dL (29-60) 11/14/17 06:30 Procalcitonin < 0.05 NG/ML (0.19-0.49) L 11/13/17 23:56 Free T4 1.24 ng/dL (0.78-2.19) 11/14/17 06:30 TSH 3rd Generation 0.30 mIU/mL (0.46-4.68) L 11/14/17 06:30 Arterial Blood Potassium 3.3 mmol/L (3.6-5.2) L 11/14/17 04:15 Urine Color Yellow (YELLOW) 11/14/17 01:16 Urine Appearance Clear (CLEAR) 11/14/17 01:16 Urine pH 6.0 (4.7-8.0) 11/14/17 01:16 Ur Specific Calhoun 1.020 (1.005-1.035) 11/14/17 01:16 Urine Protein 30 mg/dL (<30 mg/dL) H 11/14/17 01:16 Urine Glucose (UA) 250 mg/dL (NEGATIVE) H 11/14/17 01:16 Urine Ketones Negative mg/dL (NEGATIVE) 11/14/17 01:16 Urine Blood Trace-intact (NEGATIVE) H 11/14/17 01:16 Urine Nitrate Negative (NEGATIVE) 11/14/17 01:16 Urine Bilirubin Negative (NEGATIVE) 11/14/17 01:16 Urine Urobilinogen 0.2 E.U./dL (<1 E.U./dL) 11/14/17 01:16 Ur Leukocyte Esterase Negative Kt/uL (NEGATIVE) 11/14/17 01:16 Urine RBC 0 - 2 /hpf (0-2) 11/14/17 01:16 Urine WBC 0 - 2 /hpf (0-6) 11/14/17 01:16 Ur Epithelial Cells 0 - 2 /hpf (0-5) 11/14/17 01:16 Urine Bacteria None (NEG) 11/14/17 01:16 Salicylates < 1 mg/dL (2.0-20.0) L 11/13/17 23:56 Urine Opiates Screen Positive (NEGATIVE) H 11/14/17 01:16 Urine Methadone Screen Negative (NEGATIVE) 11/14/17 01:16 Acetaminophen < 10.0 ug/ml (10.0-20.0) L 11/13/17 23:56 Ur Barbiturates Screen Negative (NEGATIVE) 11/14/17 01:16 Ur Phencyclidine Scrn Negative (NEGATIVE) 11/14/17 01:16 Ur Amphetamines Screen Negative (NEGATIVE) 11/14/17 01:16 U Benzodiazepines Scrn Negative (NEGATIVE) 11/14/17 01:16 U Oth Cocaine Metabols Negative (NEGATIVE) 11/14/17 01:16 U Cannabinoids Screen Positive (NEGATIVE) H 11/14/17 01:16 Alcohol, Quantitative < 10 mg/dL (0-10) 11/13/17 23:56 - Hospital Course Hospital Course: Upon admission: Mr Jorge Alberto Cast, 36M w Phx of active smoker, polysubstance abuse, asthma, sciatica, was brought in by EMS. As per EMS, patient was found under a bridge lying face down in his spit, unresponsive. On arrival to Emergency department, pt noted with pinpoint pupils, poorly responsive, tachycardia, and in moderate respiratory distress. His pupils were constricted at 1mm and minimally reactive to light. He has leukocytosis at 16.6. CK elevated at 306. UDS is positive to opiate and cannabinoids. CXR shows no acute processes. EKG showed sinus tachycardia at 120 bp, Q waves in inferior leads. He was given NRB and Narcan 2mg with positive response and improvement in breathing. Rhonchi and wheezing bilaterally was noted. Duoneb and Solu-medrol 125mg given. Pt showing progressive improvement following nebulizer treatments. An additional Narcan 1mg was given, and pt mentation improves to AAOx3. Pt endorsed that he smoke ma rifahadana (unsure if it was laced), took percocet, (but did not use benadryl this time). 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 Pt states that he had runny nose and cough for past 3 days. Denies sick contact or recent travel. Hospital Course: 36 year old male admitted for altered mental status due to drug overdose and status asthmaticus. Arterial blood gases were obtained. pCO2 resulted 50, p)2 resulted 75, and pH was 7.29. CK decreased to 228. He was given Duoneb and wheezing improved. CXR resulted no active disease. UDS resulted positive for cannabinoids and opiates. Before blood and urine cultures resulted, patient decided to sign-out against medical advice. Patient was spoken Discharge plan: This patient is choosing to leave against medical advice. The attending physician explained to the patient that choosing to so may result in permanent bodily harm or . The physician discussed at great length that without further evaluation and monitoring there may be unforeseen circumstances and/or deterioration causing permanent bodily harm or as a result of their choice. The patient verbalized these risks back to the physician in laymans terms. The patient is alert, oriented, and shows the mental capacity to make clear decisions regarding the patients health care at this time. The patient continues to wish to leave against medical advice. The patient has been advised that they should return to the ED immediately if they change their mind at any time or if their condition begins to change or worsen in any way. In length it was explained to patient that leaving against medical advice can include the following: increased morbidity and mortality, , stroke, loss of limb and paralysis. Patient understood this and continued to state he would like to leave. Nurse witnessed the AMA form as patient read it over and signed. Disclaimer: Written above is a synopsis of patients current hospital admission. For full admission refer to EMR. ? Discharge Exam - Head Exam Head Exam: ATRAUMATIC, NORMAL INSPECTION, NORMOCEPHALIC - Eye Exam Eye Exam: EOMI, Normal appearance. absent: Nystagmus, Scleral icterus - ENT Exam ENT Exam: Mucous Membranes Moist - Respiratory Exam Respiratory Exam: NORMAL BREATHING PATTERN. absent: Accessory Muscle Use, Rales, Rhonchi, Wheezes, Respiratory Distress - Cardiovascular Exam Cardiovascular Exam: REGULAR RHYTHM, +S1, +S2. absent: Tachycardia, Systolic Murmur - GI/Abdominal Exam GI & Abdominal Exam: Normal Bowel Sounds, Soft. absent: Distended, Firm, Guarding, Tenderness - Extremities Exam Extremities exam: normal inspection - Neurological Exam Neurological exam: Alert, Normal Gait, Oriented x3 - Psychiatric Exam Psychiatric exam: Normal Affect, Normal Mood - Skin Skin Exam: Intact, Normal Color Discharge Plan - Follow Up Plan Condition: STABLE Disposition: AGAINST MEDICAL ADVICE <Ruth Carpenter - Last Filed: 11/15/17 08:56> Provider - Provider Date of Admission: 11/14/17 01:34 Attending physician: Mirian De MD Hospital Course - Lab Results Lab Results: Micro Results 11/14/17 02:30 Blood Blood Culture - Preliminary NO GROWTH AFTER 24 HOURS 11/14/17 02:00 Blood Blood Culture - Preliminary NO GROWTH AFTER 24 HOURS Most Recent Lab Values WBC 15.6 10^3/ul (4.5-11.0) H 11/14/17 06:30 RBC 4.64 10^6/uL (3.5-6.1) 11/14/17 06:30 Hgb 14.3 g/dL (14.0-18.0) 11/14/17 06:30 Hct 43.3 % (42.0-52.0) 11/14/17 06:30 MCV 93.3 fl (80.0-105.0) 11/14/17 06:30 MCH 30.8 pg (25.0-35.0) 11/14/17 06:30 MCHC 33.0 g/dl (31.0-37.0) 11/14/17 06:30 RDW 13.1 % (11.5-14.5) 11/14/17 06:30 Plt Count 226 10^3/uL (120.0-450.0) 11/14/17 06:30 MPV 11.3 fl (7.0-11.0) H 11/14/17 06:30 Gran % 95.9 % (50.0-68.0) H 11/14/17 06:30 Lymph % (Auto) 1.8 % (22.0-35.0) L 11/14/17 06:30 Johnson % (Auto) 2.1 % (1.0-6.0) 11/14/17 06:30 Eos % (Auto) 0.1 % (1.5-5.0) L 11/14/17 06:30 Baso % (Auto) 0.1 % (0.0-3.0) 11/14/17 06:30 Gran # 14.98 (1.4-6.5) H 11/14/17 06:30 Lymph # (Auto) 0.3 (1.2-3.4) L 11/14/17 06:30 Johnson # (Auto) 0.3 (0.1-0.6) 11/14/17 06:30 Eos # (Auto) 0.0 (0.0-0.7) 11/14/17 06:30 Baso # (Auto) 0.01 K/mm3 (0.0-2.0) 11/14/17 06:30 Neutrophils % (Manual) 97 % (50.0-70.0) H 11/14/17 06:30 Band Neutrophils % 2 % (0-2) 11/14/17 06:30 Lymphocytes % (Manual) 1 % (22.0-35.0) L 11/14/17 06:30 Monocytes % (Manual) 0 % (1.0-6.0) L 11/14/17 06:30 Platelet Evaluation Normal (NORMAL) 11/14/17 06:30 PT 12.0 SECONDS (9.4-12.5) 11/13/17 23:56 INR 1.05 11/13/17 23:56 APTT 29.2 Seconds (25.1-36.5) 11/13/17 23:56 pCO2 50 mm/Hg (35-45) H 11/14/17 04:15 pO2 75.0 mm/Hg (80-100) L 11/14/17 04:15 HCO3 24.0 mmol/L (21-28) 11/14/17 04:15 ABG pH 7.29 (7.35-7.45) L 11/14/17 04:15 ABG Total CO2 25.5 mmol.L (22-28) 11/14/17 04:15 ABG O2 Saturation 96.4 % (95-98) 11/14/17 04:15 ABG Base Excess -3.1 mmol/L (-2.0-3.0) L 11/14/17 04:15 ABG Potassium 3.3 mmol/L (3.6-5.2) L 11/14/17 04:15 Sodium 140.0 mmol/L (132-148) 11/14/17 04:15 Chloride 111.0 mmol/L (98-107) H 11/14/17 04:15 Glucose 86 mg/dl (75-110) 11/14/17 04:15 Lactate 0.6 mmol/L (0.7-2.1) L 11/14/17 04:15 FiO2 32.0 % 11/14/17 04:15 Sodium 139 mmol/L (132-148) 11/14/17 06:30 Potassium 4.2 mmol/L (3.6-5.0) 11/14/17 06:30 Chloride 103 mmol/L (98-107) 11/14/17 06:30 Carbon Dioxide 27 mmol/L (21-33) 11/14/17 06:30 Anion Gap 13 (10-20) 11/14/17 06:30 BUN 19 mg/dL (7-21) 11/14/17 06:30 Creatinine 1.1 mg/dl (0.8-1.5) 11/14/17 06:30 Est GFR ( Amer) > 60 11/14/17 06:30 Est GFR (Non-Af Amer) > 60 11/14/17 06:30 POC Glucose (mg/dL) 114 mg/dL (65-110) H 11/14/17 07:36 Random Glucose 186 mg/dL (70-110) H 11/14/17 06:30 Hemoglobin A1c 5.2 % (4.2-6.5) 11/14/17 06:30 Calcium 8.9 mg/dL (8.4-10.5) 11/14/17 06:30 Total Bilirubin 0.4 mg/dL (0.2-1.3) 11/14/17 06:30 AST 31 U/L (17-59) 11/14/17 06:30 ALT 28 U/L (7-56) 11/14/17 06:30 Alkaline Phosphatase 58 U/L (38-126) 11/14/17 06:30 Lactate Dehydrogenase 616 U/L (333-699) 11/13/17 23:56 Total Creatine Kinase 228 U/L (35-230) 11/14/17 06:30 CK-MB (CK-2) 3.0 ng/mL (0.0-3.6) 11/13/17 23:56 CK-MB (CK-2) % Cancelled 11/13/17 23:56 Troponin I < 0.01 ng/mL 11/13/17 23:56 Total Protein 6.9 g/dL (5.8-8.3) 11/14/17 06:30 Albumin 4.5 g/dL (3.0-4.8) 11/14/17 06:30 Globulin 2.4 gm/dL 11/14/17 06:30 Albumin/Globulin Ratio 1.9 (1.1-1.8) H 11/14/17 06:30 Triglycerides 66 mg/dL (35-160) 11/14/17 06:30 Cholesterol 141 mg/dL (130-200) 11/14/17 06:30 LDL Cholesterol Direct 67 mg/dL (0-129) 11/14/17 06:30 HDL Cholesterol 60 mg/dL (29-60) 11/14/17 06:30 Procalcitonin < 0.05 NG/ML (0.19-0.49) L 11/13/17 23:56 Free T4 1.24 ng/dL (0.78-2.19) 11/14/17 06:30 TSH 3rd Generation 0.30 mIU/mL (0.46-4.68) L 11/14/17 06:30 Arterial Blood Potassium 3.3 mmol/L (3.6-5.2) L 11/14/17 04:15 Urine Color Yellow (YELLOW) 11/14/17 01:16 Urine Appearance Clear (CLEAR) 11/14/17 01:16 Urine pH 6.0 (4.7-8.0) 11/14/17 01:16 Ur Specific [place]houn 1.020 (1.005-1.035) 11/14/17 01:16 Urine Protein 30 mg/dL (<30 mg/dL) H 11/14/17 01:16 Urine Glucose (UA) 250 mg/dL (NEGATIVE) H 11/14/17 01:16 Urine Ketones Negative mg/dL (NEGATIVE) 11/14/17 01:16 Urine Blood Trace-intact (NEGATIVE) H 11/14/17 01:16 Urine Nitrate Negative (NEGATIVE) 11/14/17 01:16 Urine Bilirubin Negative (NEGATIVE) 11/14/17 01:16 Urine Urobilinogen 0.2 E.U./dL (<1 E.U./dL) 11/14/17 01:16 Ur Leukocyte Esterase Negative Kt/uL (NEGATIVE) 11/14/17 01:16 Urine RBC 0 - 2 /hpf (0-2) 11/14/17 01:16 Urine WBC 0 - 2 /hpf (0-6) 11/14/17 01:16 Ur Epithelial Cells 0 - 2 /hpf (0-5) 11/14/17 01:16 Urine Bacteria None (NEG) 11/14/17 01:16 Salicylates < 1 mg/dL (2.0-20.0) L 11/13/17 23:56 Urine Opiates Screen Positive (NEGATIVE) H 11/14/17 01:16 Urine Methadone Screen Negative (NEGATIVE) 11/14/17 01:16 Acetaminophen < 10.0 ug/ml (10.0-20.0) L 11/13/17 23:56 Ur Barbiturates Screen Negative (NEGATIVE) 11/14/17 01:16 Ur Phencyclidine Scrn Negative (NEGATIVE) 11/14/17 01:16 Ur Amphetamines Screen Negative (NEGATIVE) 11/14/17 01:16 U Benzodiazepines Scrn Negative (NEGATIVE) 11/14/17 01:16 U Oth Cocaine Metabols Negative (NEGATIVE) 11/14/17 01:16 U Cannabinoids Screen Positive (NEGATIVE) H 11/14/17 01:16 Alcohol, Quantitative < 10 mg/dL (0-10) 11/13/17 23:56 HIV 1&2 Ag/Ab, 4th Gen Nonreactive (Nonreactive) 11/14/17 05:00 Attending/Attestation - Attestation I have personally seen and examined this patient.: Yes I have fully participated in the care of the patient.: Yes I have reviewed all pertinent clinical information, including history, physical exam and plan: Yes
[2017-11-15] MEDS ORDERED: cefTRIAXone 1 gm 1 GM/100 ML BAG IVPB SCH (10:00)
[2017-11-15] MEDS ORDERED: Azithromycin 500MG/NS 250ml 500 MG/250 ML BAG IVPB SCH (10:00)
== END 2017-11-14 09:32 | disposition left against medical advice (07) ==
LOC: ED 23:19 → ERH 11-14 01:34 → MERGE 11-14 01:34 → ERH 11-14 02:54 → 2RSO 11-14 04:40
PROVIDERS: ADMIT Internal Medicine; ATTEND Internal Medicine
DX: T50.901A Poisoning by unspecified drugs, medicaments and biological substances, accidental (unintentional), initial encounter (principal); J45.902 Unspecified asthma with status asthmaticus; M54.30 Sciatica, unspecified side; F12.10 Cannabis abuse, uncomplicated; F19.10 Other psychoactive substance abuse, uncomplicated; E16.2 Hypoglycemia, unspecified; F17.200 Nicotine dependence, unspecified, uncomplicated; D72.829 Elevated white blood cell count, unspecified; Z83.0 Family history of human immunodeficiency virus [HIV] disease
CPT/HCPCS: 36415; 71045; 80053; 80061; 80320; 80324; 80329; 80345; 80346; 80349; 80353; 80358; 80361; 81001; 82550; 82553; 82803; 82948; 83036; 83615; 83992; 84145; 84439; 84443; 84484; 85025; 85027; 85610; 85730; 87040; 87086; 87389; 93005; 96372; 96374; 96375; 96376; 99285; G0378; J0456; J0696; J1644; J2310; J2405; J2930